=== PATIENT | male | born 1940 | race Caucasian/White ===

== ENCOUNTER 2016-12-13 08:16 | Day surgery (SDC) | payer MEDICARE, BC ==
[~2016-12-13 08:16] MED LIST: Acetaminophen TAB* 325 MG PO PRN; Buffered Lidocaine 0.9% SYRIN* 5 ML/SYR SYRINGE INTRADERM ONE
[2016-12-13] MEDS ORDERED: fentaNYL* 50 MCG/ML 2 ML VIAL (100 MCG VIAL) ONE (10:03)
[2016-12-13] MEDS ORDERED: Midazolam* 1 MG/ML 2 ML VIAL (2 MG) ONE (10:03)
[2016-12-13 10:34] VITALS: BP 140/87
[2016-12-13] MEDS ORDERED: Tropicamide 1% OPTH.SOL* BTL ONE (11:55)
[2016-12-13] MEDS ORDERED: Cyclopentolate 1% OPTH.SOL* 2 ML BTL ONE (11:55)
[2016-12-13] MEDS ORDERED: Flurbiprofen 0.03% OPTH.SOL* 2.5 ML BTL ONE (11:55)
[2016-12-13] MEDS ORDERED: Buffered Lidocaine 0.9% SYRIN* 5 ML/SYR SYRINGE ONE (11:55)
[2016-12-13] MEDS ORDERED: Tetracaine 0.5% OPTH.SOL 4 ML* 1 DROP BTL ONE (11:55)
[2016-12-13] MEDS ORDERED: Phenylephrine 2.5% OPTH.SOL* 2 ML BTL ONE (11:55)
[2016-12-13] MEDS ORDERED: Lidocaine 1% MPF* 2 ML VIAL ONE (11:55)
[2016-12-13] MEDS ORDERED: Neomycin/Polymy/Dex OPHTH.OIN* 3.5 GM ONE (11:55)
--- NOTE | 2016-12-13 14:58 | OP ---
OPERATIVE REPORT: DATE OF OPERATION: 12/13/16 DATE OF : 36 SURGEON: Dr. Drew Mc. EQUITY DIRECTOR: None. ANESTHESIA: Topical with intravenous sedation. PRE-OP DIAGNOSIS: Cataract, left eye. POST-OP DIAGNOSIS: Cataract, left eye. OPERATIVE PROCEDURE: Phacoemulsification and cataract extraction with posterior chamber intraocular lens implant, left eye. COMPLICATIONS: None. BLOOD LOSS: None. OPERATIVE FINDINGS: The patient was brought to the operating room and received a small amount of in travenous sedation. A drop of Tetracaine was placed in his left eye. He was prepped and draped in the usual sterile fashion for ophthalmic surgery and attention was directed to the left eye where a speculum was placed. A paracentesis was created at the 5 o'clock position and 0.1 cc of 1 percent p reservative-free Lidocaine was injected into the anterior chamber followed by DisCoVisc. The eye wa s digitally stabilized while a 2.75 mm keratome was used to create a triplanar clear corneal incisio n at the 3 o'clock position. A continuous curvilinear capsulorrhexis was created with a cystotome a nd Utrata forceps. BSS on a cannula was used to hydrodissect the lens from the capsule. Phacoemuls ification was performed in a eqwjxw-nxi-joaatcb technique to create four fragments which were remove d. Residual cortical material was removed with irrigation and aspiration. DisCoVisc was used to inf late the capsular bag and an AUOOTO 21.0 diopter lens was folded and inserted into the capsular bag. DisCoVisc was removed using irrigation and aspiration. BSS on a cannula was used to hydrate the c orneal stroma and seal the wound. At the end of the case the pupil was round and the lens was cente red. The eye was of normal pressure and the wound was water tight. The speculum was removed and top ical Maxitrol ointment was placed on the surface of the eye. The eye was closed, patched and shield ed and the patient was sent to the recovery room in stable condition with post operative instruction s and follow-up appointment given. [id number]/[facility] #: [id number]
== END 2016-12-13 10:48 | disposition home or self-care (01) ==
LOC: OREAST 08:16
PROVIDERS: ATTEND Ophthalmology
DX: H25.13 Age-related nuclear cataract, bilateral (principal); I71.2 Thoracic aortic aneurysm, without rupture; J45.909 Unspecified asthma, uncomplicated; N40.1 Benign prostatic hyperplasia with lower urinary tract symptoms; N13.8 Other obstructive and reflux uropathy; I10 Essential (primary) hypertension; Z79.82 Long term (current) use of aspirin; Z88.8 Allergy status to other drugs, medicaments and biological substances; Z87.891 Personal history of nicotine dependence; Z79.01 Long term (current) use of anticoagulants; Z88.2 Allergy status to sulfonamides; Z95.0 Presence of cardiac pacemaker
CPT/HCPCS: A9270-GY; J2250; J3010

== ENCOUNTER 2016-12-20 07:12 | Day surgery (SDC) | payer MEDICARE, BC ==
[~2016-12-20 07:12] MED LIST changes: +Buffered Lidocaine 0.9% SYRIN* 5 ML/SYR SYRINGE ONE; +Cyclopentolate 1% OPTH.SOL* 2 ML BTL ONE; +Flurbiprofen 0.03% OPTH.SOL* 2.5 ML BTL ONE; +Lidocaine 1% MPF* 2 ML VIAL ONE; +Neomycin/Polymy/Dex OPHTH.OIN* 3.5 GM ONE; +Phenylephrine 2.5% OPTH.SOL* 2 ML BTL ONE; +Tetracaine 0.5% OPTH.SOL 4 ML* 1 DROP BTL ONE; +Tropicamide 1% OPTH.SOL* BTL ONE
[2016-12-20] MEDS ORDERED: Phenylephr/Ketorolac 1%/0.3% OPH DROP BTL ONE (07:13)
[2016-12-20] MEDS ORDERED: Midazolam* 1 MG/ML 2 ML VIAL (2 MG) ONE (08:32)
[2016-12-20] MEDS ORDERED: fentaNYL* 50 MCG/ML 2 ML VIAL (100 MCG VIAL) ONE (08:32)
[2016-12-20 09:15] VITALS: BP 131/89
--- NOTE | 2016-12-20 17:36 | OP ---
DATE OF OPERATION: 12/20/16 [facility] DATE OF : 36 SURGEON: Dr. Drew Mc. CORE PASTER: None. ANESTHESIA: Topical with intravenous sedation. PRE-OP DIAGNOSIS: Cataract, right eye. POST-OP DIAGNOSIS: Cataract, right eye. OPERATIVE PROCEDURE: Phacoemulsification and cataract extraction with posterior chamber intraocular lens implant, right eye. COMPLICATIONS: None. BLOOD LOSS: None. DESCRIPTION OF PROCEDURE: The patient was brought to the operating room and received a small amount of intravenous sedation. A drop of Tetracaine was placed in his right eye. He was prepped and draped in the usual sterile fashion for ophthalmic surgery and attention was directed to the right eye where a speculum was placed. A paracentesis was created at the 11 o'clock position and 0.1 cc of 1 percent preservative-free Lidocaine was injected into the anterior chamber followed by DisCoVisc. The eye was digitally stabilized while a 2.75 mm keratome was used to create a triplanar clear corneal incision at the 9 o'clock position. A continuous curvilinear capsulorrhexis was created with a cystotome and Utrata forceps. BSS on a cannula was used to hydrodissect the lens from the capsule. Phacoemulsification was performed in a divide-and- conquer technique to create four fragments which were removed. Residual cortical material was removed with irrigation and aspiration. DisCoVisc was used to inflate the capsular bag and an AU00T0 21.5 diopter lens was folded and inserted into the capsular bag. DisCoVisc was removed using irrigation and aspiration. BSS on a cannula was used to hydrate the corneal stroma and seal the wound. At the end of the case the pupil was round and the lens was centered. The eye was of normal pressure and the wound was water tight. The speculum was removed and topical Maxitrol ointment was placed on the surface of the eye. The eye was closed, patched and shielded and the patient was sent to the recovery room in stable condition with post operative instructions and follow-up appointment given. [id number]/[facility] #: [id number] MTDD
== END 2016-12-20 09:19 | disposition home or self-care (01) ==
LOC: OREAST 07:12
PROVIDERS: ATTEND Ophthalmology
DX: H25.11 Age-related nuclear cataract, right eye (principal); I71.2 Thoracic aortic aneurysm, without rupture; N40.1 Benign prostatic hyperplasia with lower urinary tract symptoms; I10 Essential (primary) hypertension; J45.909 Unspecified asthma, uncomplicated; Z87.891 Personal history of nicotine dependence
CPT/HCPCS: A9270-GY; C9447; J2250; J3010; V2632

== ENCOUNTER 2018-11-23 17:53 | Emergency (ER) | payer MEDICARE, BC ==
--- OUTSIDE RECORDS SUMMARY | 2018-11-23 18:06 | XMS REPORT | Continuity of Care Document ---
:1940 External Reference #:[id number] Author Name Mag Tiarragie Care Team Providers Name Role Phone Keo Rangel III, MD Primary Care Physician Unavailable Payers Date Identification Numbers Payment Provider Subscriber Effective: 2003 Policy Number: [id number] Medicare [place] PayID: [id number] [address] [place] [address] Effective: 2013 Policy Number: [id number] [employer] [place] [employer] PayID: [id number] [address] [address] [place] Shane [id number] Expires: 2013 Policy Number: [id number] BS [employer] [place] [employer] [place] PayID: [id number] [address] [address] [place] Shane [id number] Advance Directives Type Date Description Status Comment Other Directive 01/11/2014 Living Will Current and Verified LIVING WILL AND HEALTH CARE ADVANCE DIRECTIVE Problems Active Problems Provider Date Aneurysm of thoracic aorta Westley Connolly M.D.,FACP Onset: 03/07/2008 Note: repaired 07/16 Chronic atrial flutter Westley Connolly M.D.,FACP Onset: 02/13/2017 Impaired fasting glycaemia Westley Connolly M.D.,FACP Onset: 03/07/2008 Impotence of organic origin Westley Connolly M.D.,FACP Onset: 02/10/2010 Coronary arteriosclerosis Westley Connolly M.D.,FACP Onset: 01/13/2011 Cardiac pacemaker in situ Westley Connolly M.D.,FACP Onset: 01/13/2011 Aortic valve disorder Karson Patten M.D. Onset: 09/22/2011 Sinus node dysfunction Karson Patten M.D. Onset: 01/16/2012 Allergic asthma without status Westley Connolly M.D.,FACP Onset: 03/01/2012 asthmaticus Complete atrioventricular block Karson Patten M.D. Onset: 10/17/2012 Mitral valve disorder Karson Patten M.D. Onset: 11/27/2013 Benign prostatic hypertrophy with Westley Connolly M.D.,FACP Onset: 2014 outflow obstruction Iron deficiency anemia Westley Connolly M.D.,FACP Onset: 02/28/2018 Gynecomastia Westley Connolly M.D.,FACP Onset: 03/02/2018 Note: LT Inactive Problems Arthralgia of the lower leg Karson Patten M.D. Onset: 11/27/2013 Inactive: 02/19/2015 Benign prostatic hypertrophy without Westley Connolly M.D.,FACP Onset: outflow obstruction Inactive: 02/19/2015 Resolved Problems Chest pain Karson Patten M.D. 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 Tobacco Use Start: Unknown End: Former Cigarette Smoker for 6 years Unknown 2 Packs Daily ETOH Use one beer per day. ETOH Use 02/13/2017 Consumes 1 beer per day Tobacco Use Start: Unknown End: Patient is a former Unknown smoker Recreational Drug Use Denies Drug Use Smoking Status Reviewed: 11/12/18 Patient is a former smoker Exercise Type/Frequency cardiac rehab completed 01/17/18 Exercise Type/Frequency active lifestyle Exercise Type/Frequency Exercises regularly Exercise Type/Frequency walking 2-3x week 2 miles Allergies, Adverse Reactions, Alerts Active Allergies Reaction Severity Comments Date Sulfa headaches 05/07/2003 Codeine nausea, sweating 01/13/2006 Niaspan flushing 05/20/2009 Medications Active Medications SIG Qnty Indications Ordering Date Provider Poly-Iron 150 Forte take 1 capsule by 90caps Keo Henson 06/28/2018 mouth every day Danielle Rangel [id number]-mg Capsules Lipitor 1/2 tab by mouth 45tabs Karson Monge 01/24/2018 10mg Tablets every night at Danielle Patten bedtime Vitamin C 1 po qd w/ iron Westley Yoder 11/07/2017 250mg Danielle Connolly,FACP Chewtabs Diltiazem CD 1 by mouth every 90caps Karson Monge 10/20/2017 120mg Caps day Danielle Patten ER 24HR Shingrix 2 doses 6 month 2units Westley Yoder 10/16/2017 50mcg apart Danielle Connolly,FACP Suspension Rec Vascepa take 1 capsule 180caps Keo Henson 05/15/2017 1gm Capsules twice a day Danielle Rangel Uroxatral take 1 tablet by 90tabs Westley Yoder 02/13/2017 10mg Tablets mouth one time Danielle Connolly,FACP ER 24HR daily Pradaxa 1 cap by mouth 180caps Karson Monge 11/08/2016 150mg Capsules twice a day Danielle Patten Finasteride 1 by mouth every 90tabs N40.1 Keo Henson 02/12/2016 5mg Tablets day Danielle Rangel Nitrostat one sl q5min up 1bottle Karson Monge 02/05/2014 0.4mg Tablets to 3 doses as Danielle Patten Sub needed Pantoprazole Sodium 1 by mouth every 90tabs Karson Monge 08/27/2012 day Danielle Patten 40mg Tablets Cetirizine HCL 1 by mouth every Unknown 10mg day Tablets Aspir-81 1 by mouth every Unknown 81mg Tablets day Metoprolol Succinate 1/2 tablet by 90tabs Karson Monge ER mouth every day Danielle Patten 25mg Tablets ER 24HR Myrbetriq 1 by mouth every Unknown 50mg Tablets day ER 24HR Metamucil Free & 3 teaspoons once Unknown Natural a day mixed w/ 43% Powder water Lasix 1 by mouth every 90tabs Westley Yoder 20mg Tablets day as needed Danielle Connolly,FACP Ambien one by mouth at 30tabs [facility]. 5mg Tablets bedtime as needed Danielle Rangel for sleep Centrum Silver Ultra Unknown Mens Tablets Proair HFA 2 puffs by mouth Unknown 108(90Base) every 4 hours as mcg/Act Aerosol needed Chlorhexidine 15ml as a Unknown Gluconate mouthwash twice 0.12% daily as needed Solution Symbicort 2puff inhaled bid 90units Unknown 80-4.5mcg/Act Aerosol Rutin 1 po bid Unknown 500mg OTC Tablets Glucosamine 1 bid Unknown Sulfate/Chondroitin 1000mg Capsules Cinnamon 1 po daily Unknown 500mg Capsules History Medications Diltiazem 1 by mouth every 90units Karson Monge 10/03/2018 - Hydrochloride/Sodium day Danielle Patten 10/02/2018 Chloride 125-0.9mg/125ML-% Solution Feraheme 17 milliliters iv 34ml Westley Yoder 02/23/2018 - 510mg/17ML Solution x1, repeat in 1 Rogers, 03/15/2018 week x1 Danielle,FACP Iferex 150 Forte 1 by mouth every 90caps Westley Yoder 11/07/2017 - day Rogers, 06/28/2018 936-68-5lp-mcg-mg Capsules M.DJosefina,FACP Ferrous Sulfate 1 by mouth twice 60tabs Westley Yoder 10/16/2017 - 325(65Fe) mg a day Rogers, 10/16/2017 Tablets Danielle,FACP Diltiazem CD 2 tablets by 270capclint Monge 02/10/2016 - 120mg Caps ER 24HR mouth in the Danielle Patten 10/19/2017 morning and 1 tablet in the evening Metoprolol Succinate ER take 1/2 tablet 45tabs Karson Monge 12/11/2015 - 25mg by mouth daily Danielle Patten 10/20/2017 Tablets ER 24HR Lipitor 1/2 by mouth 45tabs Karson Monge 12/01/2015 - 10mg Tablets every at bedtime Danielle Patten 10/20/2017 (restarted 11/30/16) Cialis every day by 90tabs N52.01 Westley Yoder 02/19/2015 - 5mg Tablets mouth Rogers, 11/15/2015 Danielle,FACP Metoprolol Succinate ER 1 by mouth twice 200tabs Karson Monge 01/22/2015 - 25mg a day Danielle Patten 12/11/2015 Tablets ER 24HR Paorv-7-Slxw Ethyl Esters 1 by mouth twice 180caps Westley Yoder 2014 - 1gm a day Rogers, 05/15/2017 Capsules Danielle,FACP Cialis Take 1 Tablet By 30tabs 607.84 Que Hope, 02/18/2014 - 2.5mg Tablets Mouth Once Daily TRENCH DIGGER 02/19/2015 Spironolactone No Longer Taking 45tabs Karson Monge 11/27/2013 - 25mg Tablets 1/2 by mouth Danielle Patten 02/12/2016 every day Flax Seed Oil 1 by mouth every Karson Monge 11/27/2013 - 1000mg Capsules day Danielle Patten 02/18/2014 Metoprolol Succinate ER 1 by mouth daily 90tabs Karson Monge 05/13/2013 - 25mg Danielle Patten 01/22/2015 Tablets ER 24HR Spironolactone 1/4 po qd 45tabs Karson Monge 05/13/2013 - 50mg Tablets Danielle Patten 11/27/2013 Aldactone 1/2 po qd 15tabs Karson Monge 12/18/2012 - 25mg Tablets Danielle Patten 05/13/2013 Diovan 1/2 po qd Karson Monge 08/19/2012 - 40mg Tablets Danielle Patten 11/28/2012 Protonix 1 po qd 90tabs Karson Monge 09/22/2011 - 40mg Tablets DR Sandor M.D. 08/27/2012 Diovan 1 po qd 90tabs Karson Monge 11/03/2010 - 40mg Tablets Danielle Patten 08/19/2012 Toprol XL 1 po qd 90tabs Karson Monge 02/10/2010 - 25mg Tablets ER 24HR Danielle Patten 05/13/2013 Cialis qd prn 20tabs 607.84 Westley Yoder 02/10/2010 - 10mg Tablets Mohsen, 02/18/2014 Danielle,FACP Diovan 1 po qd 90tabs Karson Monge 01/20/2010 - 80mg Tablets Danielle Patten 11/03/2010 Toprol XL 1 po qd Karson FJosefina 12/24/2009 - 25mg Tablets ER 24HR Danielle Patten 02/10/2010 Nitrostat one sl q5min up 25tabs Karson Monge 05/20/2009 - 0.4mg Tablets Sub to 3 doses prn Danielle Patten 02/05/2014 Toprol XL 1 po bid 180tabs Karson Monge 05/20/2009 - 25mg Tablets ER 24HR Danielle Patten 12/24/2009 Tamiflu 1 po bid x 5 days 10caps Westley Yoder 02/18/2009 - 75mg Capsules Mohsen, 09/30/2009 Danielle,FACP Lipitor one tab by mouth 90tabs Karson Monge 10/21/2008 - 20mg Tablets qhscannot take Danielle Patten 12/01/2015 generic brand name/riana Lipitor 1 po qhs Karsonli Monge 10/02/2008 - 10mg Tablets Danielle Patten 10/21/2008 Lovaza take one capsule 180caps I25.10 Westley Yoder 03/07/2008 - 1gm Capsules by mouth twice a Rogers, 02/12/2016 day Danielle,FACP Chlorhexidine bid Karson Monge 02/15/2008 - 0.12% Solution Danielle Patten 01/16/2012 Amoxicillin/Clavulanate 1 PO tid Karson Monge 02/15/2008 - Potassium Danielle Patten 10/02/2008 500mg Tablets Lipitor 1/2 po hs 45tabs Karson Monge 02/15/2008 - 40mg Tablets Danielle Patten 10/02/2008 Lipitor one half po qd 15tabs Karson Monge 10/05/2007 - 20mg Tablets Danielle Patten 02/15/2008 Lasix 1 po qd prn 30tabs Karson Monge 10/03/2007 - 20mg Tablets Danielle Patten 10/05/2007 Diovan 1 po qd 90tabs Westley Yoder 10/03/2007 - 40mg Tablets Mohsen, 01/20/2010 Danielle,FACP Dexamethasone 1 PO qd last dose Karsonli Monge 10/03/2007 - 0.5mg Tablets 5/3 Danielle Patten 10/03/2007 Toradol Oral total 5 days post 50tabs Karson Monge 10/03/2007 - 10mg Tablets dental work Danielle Patten 10/03/2007 Clarithromycin 1 PO bid until Karson Monge 10/03/2007 - 500mg Tablets 5/ post dental Danielle Patten 02/15/2008 work Avodart 1 po qd 90caps Westley Yoder 05/24/2007 - 0.5mg Capsules Mohsen, 02/10/2010 Danielle,FACP Diovan 1 po qd 90tabs Karson Monge 05/24/2007 - 80mg Tablets Danielle Patten 10/03/2007 Lipitor 1 PO QHS 30tabs Karson Monge 12/04/2006 - 20mg Tablets Danielle Patten 10/05/2007 Lipitor Take 1 Tablet Karson Monge 09/29/2006 - 20mg Tablets Every Evening Danielle Patten 09/29/2006 Lipitor 1/2 po qd 30tabs Karson Monge 09/29/2006 - 40mg Tablets Danielle Patten 12/04/2006 Lisinopril 1/2 po qd 30tabs Karson Monge 09/29/2006 - 40mg Tablets Danielle Patten 05/24/2007 Lipitor 1 po qd 30tabs Karson Monge 05/11/2006 - 10mg Tablets Danielle Patten 09/29/2006 Niaspan 1 po q pm 90caps Karson Monge 05/11/2006 - 500mg Capsules Danielle Patten 09/29/2006 Toprol XL 1/2 po qd 45tabs Westley Yoder 04/19/2006 - 50mg Tablets ER 24HR Mohsen 05/20/2009 Danielle,FACP Lisinopril 1 po bid 60tabs Karson Monge 04/19/2006 - 10mg Tablets Danielle Patten 09/29/2006 Fish Oil 2 tablets in am 414.01 Karson Monge 02/13/2006 - Cream and 1 tablet at Danielle Patten 03/07/2008 dinner Lipitor 1 po qd 30tabs Karson Monge 02/13/2006 - 20mg Tablets Danielle Patten 05/11/2006 Lisinopril 1 po qd 30tabs Karson Monge 2005 - 5mg Tablets Danielle Patten 04/19/2006 Toprol XL 1 po qd 30tabs Karson Monge 2005 - 25mg Tablets Danielle Patten 04/19/2006 Toprol XL 1/2 po qd 30tabs Karson Monge 12/09/2005 - 25mg Tablets Danielle Patten 2005 Lisinopril 1 po qd 90tabs Karson Monge 12/09/2005 - 2.5mg Tablets Danielle Patten 2005 Plavix 4 po today and 35tabs Karson Monge 12/09/2005 - 75mg Tablets then 1 po qd Danielle Patten 2005 Nitrostat One sl Q5min Up 25tabs Karson Monge 12/09/2005 - 0.3mg Tablets To 3 Doses prn Danielle Patten 05/20/2009 Lipitor 1 po qd 90tabs Karson Monge 11/24/2005 - 10mg Tablets Danielle Patten 02/13/2006 fish oil two bid Karson Monge 11/23/2005 - Danielle Patten 02/13/2006 Lisinopril 1/2 po qd 30tabs Karson Monge 05/12/2005 - 10mg Tablets Danielle Patten 11/24/2005 Lisinopril 1 po qd 30tabs Karson Monge 05/12/2005 - 10mg Tablets Danielle Patten 05/12/2005 Lipitor 1/2 po qd 45tabs Karson Monge 05/02/2005 - 40mg Tablets Danielle Patten 11/24/2005 Lipitor 1 po qd Karson FJosefina 02/07/2005 - 20mg Tablets Danielle Patten 05/02/2005 Lipitor 1/2 po qd 15tabs Karson Monge 05/13/2004 - 80mg Tablets Danielle Patten 02/07/2005 Lipitor 1 po qd 30tabs Karson Monge 05/07/2004 - 40mg Tablets Danielle Patten 05/13/2004 Lisinopril 1/2 po qd 15tabs Karson Monge 11/06/2003 - 20mg Tablets Danielle Patten 05/12/2005 Brando Gold two qd Karson Monge 11/05/2003 - Danielle Patten 10/02/2008 Toprol XL 1 po qd 90tabs Karson Monge 06/13/2003 - 50mg Tablets Danielle Patten 12/09/2005 Toprol XL 1 po bid 60tabs Karson Monge 05/21/2003 - 25mg Tablets Danielle Patten 06/13/2003 Lisinopril 1 po qd 30tabs Karson Monge 05/21/2003 - 10mg Tablets Danielle Patten 11/06/2003 Lisinopril 1 po bid 30tabs Karson Monge 05/21/2003 - 10mg Tablets Danielle Patten 05/21/2003 Lipitor 1 po qd 30tabs Karson Monge 05/14/2003 - 20mg Tablets Danielle Patten 05/07/2004 Trimox 4 Caps One Hour 8caps Karson Monge 05/07/2003 - 500mg Capsules Prior To Dental Danielle Patten 10/02/2008 Procedure Vitamins Multiple 1 po qd 30caps Karson Monge 05/07/2003 - Caplets Danielle Patten 05/12/2005 Glucosamine Condroitin 1 po bid Karson Monge 05/07/2003 - 1000mg Danielle Patten 05/20/2009 800mg Injection Rutin 1 po bid Karson Monge 05/07/2003 - Tablet Danielle Patten 05/20/2009 Calcium 1 po bid Karsno Monge 05/07/2003 - Tablets Danielle Patten 05/12/2005 Allergy Shots Karson Monge 05/07/2003 - Tablets Danielle Patten 09/22/2011 Toprol XL 1 po qd 90tabs Karson Monge 05/07/2003 - 25mg Tablets Danielle Patten 05/21/2003 Aspirin Enteric Coated qd Karson Monge 05/06/2003 - 81mg Danielle Patten 10/20/2017 Tablets Zestril 1 po qpm 90tabs Karson Monge 05/06/2003 - 20mg Tablets Danielle Patten 05/07/2003 Ranitidine bid po 180tabs Westley Yoder 05/06/2003 - 150mg Tablets Rogers, 09/22/2011 Danielle,FACP Rhinocort Aqua Nasal [place] at bedtime Karson Monge 05/06/2003 - 150mg Danielle Patten 12/03/2015 Suspension Zestril 1 po qpm 30tabs Karson Monge 05/06/2003 - 10mg Tablets Danielle Patten 05/07/2003 Zestril 1 po qam 30tabs Karson Monge 05/06/2003 - 20mg Tablets Danielle Patten 05/07/2003 Atorvastatin Calcium 1/2 tab by mouth 14tabs Qutaybeh S. - 10mg Tablets every day Maghaydah, 01/23/2018 Danielle Myrbetriq 1 by mouth every Unknown - 50mg Tablets ER 24HR day 10/19/2017 Hydrocortisone Acetate as needed Unknown - 1% Cream 10/15/2018 Flonase Allergy Relief spray 1 spray in Unknown - 50mcg/Act each nostril 10/19/2017 Suspension twice daily Vesicare 1 by mouth every 90tabs Westley Yoder - 5mg Tablets day Rogers, 10/16/2017 Danielle,FACP Flomax 1 by mouth every 90caps Westley Yoder - 0.4mg Capsules day Rogers, 02/13/2017 Danielle,STEPHEN Budesonide instill one spray Unknown - 32mcg/Act Suspension in each nostril 10/19/2017 once daily as needed Aspirin Adult Low Dose 1 by mouth every Unknown - 81mg day 12/21/[address] Flomax 1 by mouth every N40.1 Unknown - 0.4mg Capsules day 02/12/2016 Cefuroxime Axetil Take 1 Tablet By Unknown - 500mg Tablets Mouth Twice A Day 02/01/2013 For 10 Days Vitamin C 1 po qd 30tabs Unknown - 500mg Tablets 11/27/2013 Vitamin D 1 po qd 60caps Unknown - 400Unit Capsules 11/27/2013 Multi Vitamin Mens Unknown - Tablets 12/22/2015 Benadryl 2 po qhs, Unknown - 25mg Capsules additional 1 12/08/2016 tablet prn Proventil HFA 2 puff(s) 1Mon Unknown - 108mcg/Act Aerosol inhalation 1 qid 11/15/2015 prn Medications Administered in Office Medication SIG Qnty Indications Ordering Provider Date Inj, Regadenoson, 0.1 MG Zach Hdz, DO [facility] 03/04/2015 Injection Inj, Regadenoson, 0.1 MG Karson Patten M.D. 03/04/2015 Injection Technetium TC 99M Zach Hdz, DO [facility] 03/04/2015 Tetrofosmin, Per Unit Dose Up To 40 Millicuries Injection Technetium TC 99M Karson Patten M.D. 03/04/2015 Tetrofosmin, Per Unit Dose Up To 40 Millicuries Injection Immunizations CPT Code Status Date Vaccine Lot # [id number] Given 03/03/2018 Zoster (Shingles) Vaccine (HZV), Recombinant, Subunit, Adjuvanted 18461 Given 03/03/2018 Zoster (Shingles) Vaccine (HZV), Recombinant, Subunit, Adjuvanted 38940 Given 03/02/2018 Fluzone High Dose 43307 Given 10/13/2017 Zoster (Shingles) Vaccine (HZV), Recombinant, Subunit, Adjuvanted 22614 Given 02/12/2016 Influenza Virus Vaccine, Quadrivalent, Split, [id number] Preservative Free 20390 Given 02/19/2015 Influenza Virus Vaccine, Quadrivalent, Split, [id number] Preservative Free 82216 Given 12/16/2014 Pneumococcal Conjugate Vaccine 13 Valent For [id number] Intramuscular Use 86713 Given 02/19/2013 Fluzone High Dose [id number] 07483 Given 03/01/2012 Tdap - Tetanus/Diptheria/Acellular Pertussis [id number] Q2038 Given 02/27/2012 Fluzone Vaccine 42991 Given 02/27/2012 Influenza Virus 3Yrs & Over 94180 Given 05/11/2009 Influenza Virus Vaccine, Pandemic Formulation [id number] 76495 Given 03/07/2009 Zoster (Zostavax) 65253 Given 03/07/2008 Influenza Virus 3Yrs & Over 59968 Given 03/07/2008 Influenza Virus 3Yrs & Over [id number] 22180 Given 04/04/2007 Zoster (Zostavax) 02731 Given 04/04/2007 Pneumonia Vaccine Vital Signs Date Vital Result Comment 11/12/2018 8:53am Height 70.5 inches 5'10.50" Weight 182.38 lb with shoes Heart Rate 66 /min radial, regular BP Systolic Sitting 140 mmHg LA, reg cuff BP Diastolic Sitting 86 mmHg LA, reg cuff BP Systolic Standing 130 mmHg LA, reg cuff BP Diastolic Standing 82 mmHg LA, reg cuff BMI (Body Mass Index) 25.8 kg/m2 Ejection Fraction 45%-50% echo 10/18/18 10/16/2018 9:20am Height 70.5 inches 5'10.50" Weight 180.12 lb Clothes/shoes Heart Rate 60 /min Radial BP Systolic Sitting 128 mmHg Rue reg cuff BP Diastolic Sitting 60 mmHg Rue reg cuff BP Systolic Standing 122 mmHg Rue reg cuff BP Diastolic Standing 60 mmHg Rue reg cuff BMI (Body Mass Index) 25.5 kg/m2 Ejection Fraction 55-60% Echo 01/19/2018 10/05/2018 11:35am Height 70.5 inches 5'10.50" Weight 178.50 lb Heart Rate 76 /min BP Systolic 131 mmHg BP Diastolic 86 mmHg Body Temperature 97.6 F O2 % BldC Oximetry 97 % BMI (Body Mass Index) 25.2 kg/m2 02/28/2018 8:48am Height 70.5 inches 5'10.50" Weight 172.12 lb Heart Rate 97 /min BP Systolic 130 mmHg BP Diastolic 82 mmHg Body Temperature 96.5 F O2 % BldC Oximetry 96 % BMI (Body Mass Index) 24.3 kg/m2 01/17/2018 11:23am Height 71 inches 5'11" Weight 172.25 lb W/ Shoes Heart Rate 84 /min BP Systolic Sitting 122 mmHg Lue Reg Cuff BP Diastolic Sitting 84 mmHg Lue Reg Cuff BMI (Body Mass Index) 24.0 kg/m2 Ejection Fraction 55% ECHO 07/29/17 11/09/2017 9:10am Height 71 inches 5'11" Weight 174.00 lb with shoes Heart Rate 62 /min Right Radial BP Systolic Sitting 102 mmHg Lue reg cuff BP Diastolic Sitting 58 mmHg Lue reg cuff BP Systolic Standing 96 mmHg Lue BP Diastolic Standing 52 mmHg Lue Respiratory Rate 16 /min BMI (Body Mass Index) 24.3 kg/m2 Ejection Fraction 55% Echo 07/29/17 10/20/2017 2:21pm Height 71 inches 5'11" Weight 173.00 lb Heart Rate 88 /min BP Systolic Sitting 98 mmHg Lue reg cuff BP Diastolic Sitting 62 mmHg Lue reg cuff BP Systolic Standing 94 mmHg Lue BP Diastolic Standing 68 mmHg Lue Respiratory Rate 16 /min BMI (Body Mass Index) 24.1 kg/m2 Ejection Fraction 55% 07/29/17 10/16/2017 9:19am Height 71 inches 5'11" Weight 174.00 lb Heart Rate 80 /min BP Systolic Sitting 122 mmHg BP Diastolic Sitting 66 mmHg Body Temperature 96.9 F O2 % BldC Oximetry 97 % BMI (Body Mass Index) 24.3 kg/m2 02/13/2017 9:14am Height 71 inches 5'11" Weight 190.00 lb Heart Rate 64 /min BP Systolic Sitting 140 mmHg BP Diastolic Sitting 78 mmHg BP Systolic Recheck 126 mmHg BP Diastolic Recheck 76 mmHg Body Temperature 97.0 F O2 % BldC Oximetry 98 % BMI (Body Mass Index) 26.5 kg/m2 12/08/2016 3:37pm Weight 192.00 lb Heart Rate 63 /min BP Systolic Sitting 134 mmHg BP Diastolic Sitting 78 mmHg Body Temperature 97.4 F O2 % BldC Oximetry 98 % 11/08/2016 3:50pm Height 70 inches 5'10" Weight 191.00 lb with shoes Heart Rate 70 /min BP Systolic Sitting 142 mmHg LA reg cuff BP Diastolic Sitting 90 mmHg LA reg cuff BMI (Body Mass Index) 27.4 kg/m2 Ejection Fraction 55% - 60% stress echo 02/10/16 03/14/2016 1:13pm Height 70 inches 5'10" Weight 195.00 lb with shoes Heart Rate 72 /min BP Systolic Sitting 126 mmHg LA reg cuff BP Diastolic Sitting 86 mmHg LA reg cuff BMI (Body Mass Index) 28.0 kg/m2 Ejection Fraction 50 - 55% echo 12/10/15 02/12/2016 11:24am Height 70 inches 5'10" Weight 199.00 lb Heart Rate 60 /min BP Systolic Sitting 146 mmHg BP Diastolic Sitting 100 mmHg BP Systolic Recheck 160 mmHg BP Diastolic Recheck 84 mmHg Body Temperature 97.0 F O2 % BldC Oximetry 98 % BMI (Body Mass Index) 28.6 kg/m2 12/22/2015 2:32pm Height 70.75 inches 5'10.75" Heart Rate 60 /min Apical BP Systolic 118 mmHg Ra, reg BP Diastolic 74 mmHg Ra, reg BP Systolic Sitting 124 mmHg LA, reg BP Diastolic Sitting 84 mmHg LA, reg 11/16/2015 1:25pm Height 70.75 inches 5'10.75" Weight 198.00 lb with shoes Heart Rate 62 /min BP Systolic 122 mmHg LA lrg cuff BP Diastolic 78 mmHg LA lrg cuff BMI (Body Mass Index) 27.8 kg/m2 Ejection Fraction 47% NLM 03/04/16 03/12/2015 2:53pm Height 70.75 inches 5'10.75" Weight 196.00 lb Heart Rate 76 /min BP Systolic Sitting 156 mmHg LA reg cuff BP Diastolic Sitting 88 mmHg LA reg cuff BP Systolic Standing 142 mmHg la repeat sitting BP Diastolic Standing 84 mmHg la repeat sitting BMI (Body Mass Index) 27.5 kg/m2 Ejection Fraction 47 NLM 03/04/15 02/19/2015 10:18am Height 70.75 inches 5'10.75" Weight 194.00 lb Heart Rate 58 /min BP Systolic Sitting 110 mmHg BP Diastolic Sitting 62 mmHg Body Temperature 97.5 F O2 % BldC Oximetry 98 % BMI (Body Mass Index) 27.2 kg/m2 01/02/2015 4:07pm Height 70.75 inches 5'10.75" Weight 193.00 lb Heart Rate 76 /min BP Systolic Sitting 138 mmHg LA, reg BP Diastolic Sitting 84 mmHg LA, reg BMI (Body Mass Index) 27.1 kg/m2 Ejection Fraction 60%-65% 11/27/12 ECHO 02/18/2014 10:35am Height 70.75 inches 5'10.75" Weight 194.00 lb Heart Rate 68 /min BP Systolic Sitting 134 mmHg BP Diastolic Sitting 86 mmHg Body Temperature 96.9 F BMI (Body Mass Index) 27.2 kg/m2 11/27/2013 11:41am Height 70.5 inches 5'10.50" Weight 193.00 lb Heart Rate 64 /min BP Systolic Sitting 140 mmHg BP Diastolic Sitting 82 mmHg Respiratory Rate 16 /min BMI (Body Mass Index) 27.3 kg/m2 11/07/2013 11:43am Height 70.5 inches 5'10.50" Weight 194.25 lb Heart Rate 76 /min BP Systolic Sitting 144 mmHg BP Diastolic Sitting 96 mmHg Body Temperature 96.9 F BMI (Body Mass Index) 27.5 kg/m2 02/01/2013 9:12am Height 71 inches 5'11" Weight 190.50 lb Heart Rate 60 /min BP Systolic Sitting 128 mmHg BP Diastolic Sitting 76 mmHg BMI (Body Mass Index) 26.6 kg/m2 11/22/2012 12:12pm Height 70.5 inches 5'10.50" Weight 193.50 lb Heart Rate 68 /min BP Systolic Sitting 132 mmHg BP Diastolic Sitting 82 mmHg Body Temperature 97.8 F O2 % BldC Oximetry 98 % BMI (Body Mass Index) 27.4 kg/m2 10/17/2012 9:35am Height 70.5 inches 5'10.50" Weight 196.00 lb Heart Rate 60 /min BP Systolic 130 mmHg BP Diastolic 88 mmHg Respiratory Rate 14 /min BMI (Body Mass Index) 27.7 kg/m2 03/01/2012 4:23pm Height 70.5 inches 5'10.50" Weight 197.00 lb Heart Rate 60 /min BP Systolic Sitting 134 mmHg BP Diastolic Sitting 82 mmHg BMI (Body Mass Index) 27.9 kg/m2 01/16/2012 9:36am Height 71 inches 5'11" Weight 199.00 lb Heart Rate 60 /min BP Systolic 118 mmHg BP Diastolic 76 mmHg BMI (Body Mass Index) 27.8 kg/m2 09/22/2011 9:41am Height 71 inches 5'11" Weight 195.75 lb Heart Rate 55 /min BP Systolic 136 mmHg BP Diastolic 70 mmHg BMI (Body Mass Index) 27.3 kg/m2 01/13/2011 10:09am Height 71 inches 5'11" Weight 197.00 lb Heart Rate 68 /min BP Systolic Sitting 150 mmHg BP Diastolic Sitting 88 mmHg BMI (Body Mass Index) 27.5 kg/m2 11/03/2010 3:06pm Weight 195.00 lb Heart Rate 60 /min BP Systolic Sitting 114 mmHg BP Diastolic Sitting 60 mmHg 02/10/2010 2:44pm Weight 197.00 lb Heart Rate 60 /min BP Systolic Sitting 132 mmHg BP Diastolic Sitting 80 mmHg 02/10/2010 9:01am Height 72 inches 6'0" Weight 197.00 lb Heart Rate 74 /min BP Systolic Sitting 110 mmHg BP Diastolic Sitting 80 mmHg BMI (Body Mass Index) 26.7 kg/m2 12/24/2009 8:43am Height 72 inches 6'0" Weight 195.00 lb Heart Rate 63 /min BP Systolic Sitting 130 mmHg L BP Diastolic Sitting 80 mmHg L BMI (Body Mass Index) 26.4 kg/m2 09/30/2009 3:05pm Height 72 inches 6'0" Weight 194.00 lb Heart Rate 70 /min BP Systolic 124 mmHg BP Diastolic 94 mmHg BMI (Body Mass Index) 26.3 kg/m2 05/20/2009 3:32pm Height 72 inches 6'0" Weight 197.00 lb Heart Rate 60 /min BP Systolic Sitting 120 mmHg BP Diastolic Sitting 90 mmHg BMI (Body Mass Index) 26.7 kg/m2 02/18/2009 8:50am Height 72 inches 6'0" Weight 196.00 lb Heart Rate 68 /min BP Systolic Sitting 130 mmHg BP Diastolic Sitting 78 mmHg BMI (Body Mass Index) 26.6 kg/m2 10/02/2008 11:09am Height 72 inches 6'0" Weight 197.00 lb Heart Rate 60 /min BP Systolic Sitting 120 mmHg BP Diastolic Sitting 82 mmHg BMI (Body Mass Index) 26.7 kg/m2 10/01/2008 1:21pm Height 72 inches 6'0" Weight 198.00 lb Heart Rate 76 /min BP Systolic Sitting 120 mmHg BP Diastolic Sitting 80 mmHg BMI (Body Mass Index) 26.9 kg/m2 03/07/2008 11:06am Height 72 inches 6'0" Weight 200.00 lb Heart Rate 68 /min BP Systolic Sitting 140 mmHg BP Diastolic Sitting 82 mmHg BMI (Body Mass Index) 27.1 kg/m2 02/15/2008 3:01pm Height 72 inches 6'0" Weight 202.00 lb Heart Rate 64 /min BP Systolic Sitting 140 mmHg L BP Diastolic Sitting 90 mmHg L BMI (Body Mass Index) 27.4 kg/m2 10/12/2007 2:40pm Height 72 inches 6'0" Weight 203.00 lb Heart Rate 76 /min BP Systolic Sitting 140 mmHg BP Diastolic Sitting 70 mmHg BMI (Body Mass Index) 27.5 kg/m2 10/03/2007 8:05am Height 72 inches 6'0" Weight 200.00 lb Heart Rate 81 /min BP Systolic Sitting 124 mmHg BP Diastolic Sitting 84 mmHg BP Systolic Standing 120 mmHg BP Diastolic Standing 80 mmHg BMI (Body Mass Index) 27.1 kg/m2 05/24/2007 10:14am Height 72 inches 6'0" Weight 199.00 lb Heart Rate 60 /min BP Systolic Sitting 126 mmHg BP Diastolic Sitting 80 mmHg Respiratory Rate 16 /min BMI (Body Mass Index) 27.0 kg/m2 09/29/2006 11:09am Height 72 inches 6'0" Weight 194.00 lb Heart Rate 66 /min BP Systolic Sitting 134 mmHg BP Diastolic Sitting 70 mmHg BP Systolic Standing 120 mmHg BP Diastolic Standing 70 mmHg BMI (Body Mass Index) 26.3 kg/m2 05/11/2006 2:07pm Height 72 inches 6'0" Weight 197.00 lb Heart Rate 68 /min BP Systolic Sitting 110 mmHg BP Diastolic Sitting 80 mmHg BP Systolic Standing 108 mmHg BP Diastolic Standing 76 mmHg BMI (Body Mass Index) 26.7 kg/m2 02/13/2006 3:13pm Height 72 inches 6'0" Weight 196.00 lb Heart Rate 66 /min BP Systolic Sitting 130 mmHg BP Diastolic Sitting 82 mmHg Respiratory Rate 18 /min BMI (Body Mass Index) 26.6 kg/m2 2005 8:42am Height 72 inches 6'0" Weight 195.00 lb Heart Rate 63 /min BP Systolic Sitting 144 mmHg R BP Diastolic Sitting 100 mmHg R BP Systolic Standing 140 mmHg R BP Diastolic Standing 100 mmHg R BMI (Body Mass Index) 26.4 kg/m2 11/24/2005 10:01am Height 72 inches 6'0" Weight 199.00 lb Heart Rate 53 /min BP Systolic Sitting 124 mmHg L BP Diastolic Sitting 70 mmHg L BP Systolic Standing 118 mmHg L BP Diastolic Standing 80 mmHg L BMI (Body Mass Index) 27.0 kg/m2 05/13/2004 3:17pm Height 72 inches 6'0" Weight 196.00 lb Heart Rate 60 /min BP Systolic Sitting 120 mmHg L BP Diastolic Sitting 80 mmHg L BP Systolic Standing 122 mmHg L BP Diastolic Standing 80 mmHg L BMI (Body Mass Index) 26.6 kg/m2 11/06/2003 1:37pm Height 72 inches Weight 196.00 lb Heart Rate 60 /min BP Systolic Sitting 124 mmHg BP Diastolic Sitting 84 mmHg BP Systolic Standing 114 mmHg BP Diastolic Standing 86 mmHg BMI (Body Mass Index) 26.6 kg/m2 05/21/2003 10:45am Height 72 inches Weight 196.00 lb Heart Rate 66 /min BP Systolic Sitting 124 mmHg BP Diastolic Sitting 80 mmHg BP Systolic Standing 112 mmHg BP Diastolic Standing 82 mmHg BMI (Body Mass Index) 26.6 kg/m2 05/07/2003 10:11am Height 72 inches Weight 191.00 lb Heart Rate 77 /min BP Systolic Sitting 118 mmHg BP Diastolic Sitting 82 mmHg BP Systolic Standing 120 mmHg BP Diastolic Standing 90 mmHg BMI (Body Mass Index) 25.9 kg/m2 Results Test Date Facility Test Result H/L Range Note Laboratory test 10/12/[facility] Magnesium 2.0 mg/dL N 1.9-2.7 [address] [place] [address] [phone] CBC Auto Diff 10/12/2018 [facility] White Blood 4.8 10^3/uL N 3.5-10.[address] [place] [address] [phone] Red Blood Count 4.41 10^6/uL N 4.18-5.48 Hemoglobin 14.0 g/dL N 14.0-18.0 Hematocrit 42 % N 42-52 Mean Corpuscular Volume 94 fL N 80-94 Mean Corpuscular Hemoglobin 32 pg High 27-31 Mean Corpuscular HGB Conc 34 g/dL N 31-36 Red Cell Distribution Width 14 % N 10.5-15 Platelet Count 148 10^3/uL Low 150-450 Mean Platelet Volume 9.4 fL N 7.4-10.4 Abs Neutrophils 3.0 10^3/uL N 1.5-7.7 Abs Lymphocytes 0.9 10^3/uL Low 1.0-4.8 Abs Monocytes 0.3 10^3/uL N 0-0.8 Abs Eosinophils 0.4 10^3/uL N 0-0.6 Abs Basophils 0.1 10^3/uL N 0-0.2 Abs Nucleated RBC 0.0 10^3/uL Granulocyte % 63.1 % Lymphocyte % 19.0 % Monocyte % 7.1 % Eosinophil % 8.9 % Basophil % 1.9 % Nucleated Red Blood Cells % 0.0 Lipid Profile 10/12/2018 [facility] Triglycerides 40 mg/dL 2 (Trig/Chol/HDL) [address] [place] [address] [phone] Cholesterol 103 mg/dL 3 HDL Cholesterol 43.2 mg/dL 4 LDL Cholesterol 52 mg/dL 5 Comp Metabolic Panel 10/12/2018 [facility] Sodium 139 mmol/L N 135-[address] [place] [address] [phone] Potassium 4.2 mmol/L N 3.5-5.0 Chloride 104 mmol/L N 101-111 Co2 Carbon Dioxide 29 mmol/L N 22-32 Anion Gap 6 mmol/L N 2-11 Glucose 96 mg/dL N 70-100 Blood Urea Nitrogen 14 mg/dL N 6-24 Creatinine 1.00 mg/dL N 0.67-1.17 BUN/Creatinine Ratio 14.0 N 8-20 Calcium 9.1 mg/dL N 8.6-10.3 Total Protein 6.6 g/dL N 6.4-8.9 Albumin 4.2 g/dL N 3.2-5.2 Globulin 2.4 g/dL N 2-4 Albumin/Globulin Ratio 1.8 N 1-3 Total Bilirubin 0.80 mg/dL N 0.2-1.0 Alkaline Phosphatase 55 U/L N 34-104 Alt 27 U/L N 7-52 Ast 33 U/L N 13-39 Egfr Non- 72.1 >60 Egfr 87.2 >60 6 Lipid Panel - 10/12/2018 [facility] Creatine 147 U/L N 10-[address] Kinase(CK) [place] [address] [phone] Vitamin B12 10/12/2018 [facility] Vitamin B12 879 pg/mL N 180- 914 [address] [place] [address] [phone] Folic Acid (Folate) > 20.00 ng/mL >3.99 Iron & Iron Binding 10/12/2018 [facility] Iron 90 g/dL N 50- [address] [place] [address] [phone] Unsaturated Iron Binding < 339 g/dL Total Iron Binding Capacity 354 g/dL N 250-450 Transferrin 253 mg/dL N 203-362 % Iron Saturation 25 % N 15-55 Laboratory test 10/12/2018 [facility] Ferritin 38.1 ng/mL N 24 -[address] [place] [address] [phone] Lipid Panel - JFM 02/21/2018 [facility] Creatine 159 U/L N 10- [address] Kinase(CK) [place] [address] [phone] Comp Metabolic 02/21/2018 [facility] Sodium 140 mmol/L N 135- [address] [place] [address] [phone] Potassium 4.3 mmol/L N 3.5-5.0 Chloride 105 mmol/L N 101-111 Co2 Carbon Dioxide 29 mmol/L N 22-32 Anion Gap 6 mmol/L N 2-11 Glucose 105 mg/dL High 70-100 Blood Urea Nitrogen 14 mg/dL N 6-24 Creatinine 0.98 mg/dL N 0.67-1.17 BUN/Creatinine Ratio 14.3 N 8-20 Calcium 9.2 mg/dL N 8.6-10.3 Total Protein 6.6 g/dL N 6.4-8.9 Albumin 4.1 g/dL N 3.2-5.2 Globulin 2.5 g/dL N 2-4 Albumin/Globulin Ratio 1.6 N 1-3 Total Bilirubin 0.80 mg/dL N 0.2-1.0 Alkaline Phosphatase 61 U/L N 34-104 Alt 23 U/L N 7-52 Ast 29 U/L N 13-39 Egfr Non- 73.8 >60 Egfr 89.3 >60 9 Lipid Profile 02/21/2018 [facility] Triglycerides 41 mg/dL 10 (Trig/Chol/HDL) [address] [place] [address] [phone] Cholesterol 102 mg/dL 11 HDL Cholesterol 40.6 mg/dL 12 LDL Cholesterol 53 mg/dL 13 CBC Auto Diff 02/21/2018 [facility] White Blood 3.8 10^3/uL N 3.5-10.[address] [place] [address] [phone] Red Blood Count 4.54 10^6/uL N 4.00-5.40 Hemoglobin 11.9 g/dL Low 14.0-18.0 Hematocrit 37 % Low 42-52 Mean Corpuscular Volume 81 fL N 80-94 Mean Corpuscular Hemoglobin 26 pg Low 27-31 Mean Corpuscular HGB Conc 32 g/dL N 31-36 Red Cell Distribution Width 17 % High 10.5-15 Platelet Count 198 10^3/uL N 150-450 Mean Platelet Volume 8.5 um3 N 7.4-10.4 Abs Neutrophils 2.4 10^3/uL N 1.5-7.7 Abs Lymphocytes 0.7 10^3/uL Low 1.0-4.8 Abs Monocytes 0.3 10^3/uL N 0-0.8 Abs Eosinophils 0.2 10^3/uL N 0-0.6 Abs Basophils 0.1 10^3/uL N 0-0.2 Abs Nucleated RBC 0 10^3/uL Granulocyte % 63.0 % N 38-83 Lymphocyte % 19.7 % Low 25-47 Monocyte % 9.1 % High 0-7 Eosinophil % 6.4 % High 0-6 Basophil % 1.8 % N 0-2 Nucleated Red Blood Cells % 0.1 Protein 02/21/2018 [facility] Total 6.9 g/dL 6.3 - Electrophoresis [address] [employer] Protein(Pep) 7.9 [place] [address] [phone] Albumin 3.6 g/dL 3.4-4.7 Alpha-1 Globulin 0.3 g/dL 0.1-0.3 Alpha-2 Globulin 0.8 g/dL 0.6-1.0 Beta Globulin 0.9 g/dL 0.7-1.2 Gamma Globulin 1.4 g/dL 0.6-1.6 Albumin/Globulin Ratio 1.09 Impression See Comment 14 Iron & Iron Binding 02/21/2018 [facility] Iron 40 g/dL Low 50-[address] [place] [address] [phone] Unsaturated Iron Binding 381 g/dL Total Iron Binding Capacity 421 g/dL N 250-450 Transferrin 301 mg/dL N 203-362 % Iron Saturation 10 % Low 15-55 Laboratory test 02/21/2018 [facility] Ferritin 29.0 ng/mL N 24 -[address] [place] [address] [phone] CBC Auto Diff 11/22/2017 [facility] White Blood 4.6 10^3/uL N 3.5-10.[address] [place] [address] [phone] Red Blood Count 4.22 10^6/uL N 4.00-5.40 Hemoglobin 11.0 g/dL Low 14.0-18.0 Hematocrit 33 % Low 42-52 Mean Corpuscular Volume 79 fL Low 80-94 Mean Corpuscular Hemoglobin 26 pg Low 27-31 Mean Corpuscular HGB Conc 33 g/dL N 31-36 Red Cell Distribution Width 24 % High 10.5-15 Platelet Count 161 10^3/uL N 150-450 Mean Platelet Volume 8.6 um3 N 7.4-10.4 Abs Neutrophils 3.5 10^3/uL N 1.5-7.7 Abs Lymphocytes 0.7 10^3/uL Low 1.0-4.8 Abs Monocytes 0.3 10^3/uL N 0-0.8 Abs Eosinophils 0.1 10^3/uL N 0-0.6 Abs Basophils 0 10^3/uL N 0-0.2 Abs Nucleated RBC 0 10^3/uL Granulocyte % 76.0 % N 38-83 Lymphocyte % 14.2 % Low 25-47 Monocyte % 5.5 % N 0-7 Eosinophil % 3.2 % N 0-6 Basophil % 1.1 % N 0-2 Nucleated Red Blood Cells % 0 Iron & Iron Binding 11/22/2017 [facility] Iron 55 g/dL N 50- 212 [address]acity [address] [place] [address] [phone] Unsaturated Iron Binding 320 g/dL Total Iron Binding Capacity 375 g/dL N 250-450 Transferrin 268 mg/dL N 203-362 % Iron Saturation 15 % N 15-55 Comp Metabolic Panel 11/22/2017 [facility] Sodium 137 mmol/L N 135-145 [address] [place] [address] [phone] Potassium 4.4 mmol/L N 3.5-5.0 Chloride 104 mmol/L N 101-111 Co2 Carbon Dioxide 27 mmol/L N 22-32 Anion Gap 6 mmol/L N 2-11 Glucose 134 mg/dL High 70-100 Blood Urea Nitrogen 17 mg/dL N 6-24 Creatinine 1.10 mg/dL N 0.67-1.17 BUN/Creatinine Ratio 15.5 N 8-20 Calcium 9.0 mg/dL N 8.6-10.3 Total Protein 6.3 g/dL Low 6.4-8.9 Albumin 3.7 g/dL N 3.2-5.2 Globulin 2.6 g/dL N 2-4 Albumin/Globulin Ratio 1.4 N 1-3 Total Bilirubin 0.50 mg/dL N 0.2-1.0 Alkaline Phosphatase 54 U/L N 34-104 Alt 27 U/L N 7-52 Ast 30 U/L N 13-39 Egfr Non- 64.7 >60 Egfr 78.3 >60 15 Laboratory test 11/22/2017 [facility] Lyme Disease Positive Negative [address] [place] [address] [phone] Lyme Western 11/22/2017 [facility] Lyme Disease Negative Negative Blot [address] [place] [address] [phone] Lyme Disease IgG Bands Present No bands detecte <SEE NOTE> kDa 17 Lyme Disease IgM Ab WB Negative Negative Lyme Disease IgM Bands Present No bands detecte <SEE NOTE> kDa 18 Lyme Disease Interpretation See Comment 19 Iron & Iron 11/01/2017 [facility] Total Iron 346 g/dL N 250- [address] [place] [address] Capacity [phone] Transferrin 247 mg/dL N 203-362 Iron < 15 g/dL Low 50-212 Unsaturated Iron Binding 331.46168 g/dL % Iron Saturation 4 % Low 15-55 Comp Metabolic Panel 11/01/2017 [facility] Sodium 136 mmol/L Low 139-[address] [place] [address] [phone] Potassium 4.4 mmol/L N 3.5-5.0 Chloride 102 mmol/L N 101-111 Co2 Carbon Dioxide 27 mmol/L N 22-32 Anion Gap 7 mmol/L N 2-11 Glucose 109 mg/dL High 70-100 Blood Urea Nitrogen 19 mg/dL N 6-24 Creatinine 0.97 mg/dL N 0.67-1.17 BUN/Creatinine Ratio 19.6 N 8-20 Calcium 8.6 mg/dL N 8.6-10.3 Total Protein 6.3 g/dL Low 6.4-8.9 Albumin 3.6 g/dL N 3.2-5.2 Globulin 2.7 g/dL N 2-4 Albumin/Globulin Ratio 1.3 N 1-3 Total Bilirubin 0.50 mg/dL N 0.2-1.0 Alkaline Phosphatase 51 U/L N 34-104 Alt 17 U/L N 7-52 Ast 20 U/L N 13-39 Egfr Non- 74.9 >60 Egfr 96.3 >60 20 CBC Auto Diff 11/01/2017 [facility] White Blood 4.1 10^3/uL N 3.5-10.[address] [place] [address] [phone] Red Blood Count 4.23 10^6/uL N 4.0-5.4 Hemoglobin 11.1 g/dL Low 14.0-18.0 Hematocrit 34 % Low 42-52 Mean Corpuscular Volume 79 fL Low 80-94 Mean Corpuscular Hemoglobin 26 pg Low 27-31 Mean Corpuscular HGB Conc 33 g/dL N 31-36 Red Cell Distribution Width 25 % High 10.5-15 Platelet Count 171 10^3/uL N 150-450 Mean Platelet Volume 9.2 um3 N 7.4-10.4 Abs Neutrophils 2.9 10^3/uL N 1.5-7.7 Abs Lymphocytes 0.7 10^3/uL Low 1.0-4.8 Abs Monocytes 0.4 10^3/uL N 0-0.8 Abs Eosinophils 0.1 10^3/uL N 0-0.6 Abs Basophils 0 10^3/uL N 0-0.2 Abs Nucleated RBC 0 10^3/uL Granulocyte % 71.3 % N 38-83 Lymphocyte % 17.2 % Low 25-47 Monocyte % 9.0 % High 0-7 Eosinophil % 1.4 % N 0-6 Basophil % 1.1 % N 0-2 Nucleated Red Blood Cells % 0.1 Comp Metabolic Panel 02/02/2017 [facility] Sodium 137 mmol/L N 133-[address] [place] [address] [phone] Potassium 3.9 mmol/L N 3.5-5.0 Chloride 102 mmol/L N 101-111 Co2 Carbon Dioxide 30 mmol/L N 22-32 Anion Gap 5 mmol/L N 2-11 Glucose 97 mg/dL N 70-100 Blood Urea Nitrogen 15 mg/dL N 6-24 Creatinine 1.09 mg/dL N 0.67-1.17 BUN/Creatinine Ratio 13.8 N 8-20 Calcium 9.0 mg/dL N 8.6-10.3 Total Protein 6.5 g/dL N 6.4-8.9 Albumin 3.9 g/dL N 3.2-5.2 Globulin 2.6 g/dL N 2-4 Albumin/Globulin Ratio 1.5 N 1-3 Total Bilirubin 0.90 mg/dL N 0.2-1.0 Alkaline Phosphatase 49 U/L N 34-104 Alt 17 U/L N 7-52 Ast 21 U/L N 13-39 Egfr Non- 65.4 N >60 Egfr 84.1 N >60 21 Laboratory test 02/02/2017 [facility] Vitamin B12 820 pg/mL N 180-914 [address] [place] [address] [phone] CBC Auto Diff 02/02/2017 [facility] White Blood 4.6 10^3/uL N 3.5-10.[address] [place] [address] [phone] Red Blood Count 4.47 10^6/uL N 4.0-5.4 Hemoglobin 14.1 g/dL N 14.0-18.0 Hematocrit 42 % N 42-52 Mean Corpuscular Volume 93 fL N 80-94 Mean Corpuscular Hemoglobin 32 pg High 27-31 Mean Corpuscular HGB Conc 34 g/dL N 31-36 Red Cell Distribution Width 13 % N 10.5-15 Platelet Count 173 10^3/uL N 150-450 Mean Platelet Volume 9 um3 N 7.4-10.4 Abs Neutrophils 2.9 10^3/uL N 1.5-7.7 Abs Lymphocytes 1.1 10^3/uL N 1.0-4.8 Abs Monocytes 0.3 10^3/uL N 0-0.8 Abs Eosinophils 0.2 10^3/uL N 0-0.6 Abs Basophils 0.1 10^3/uL N 0-0.2 Abs Nucleated RBC 0.01 10^3/uL N Granulocyte % 64.2 % N 38-83 Lymphocyte % 23.8 % Low 25-47 Monocyte % 7.2 % N 1-9 Eosinophil % 3.6 % N 0-6 Basophil % 1.2 % N 0-2 Nucleated Red Blood Cells % 0.1 N Lipid Panel - 11/11/2016 [facility] Creatine 236 U/L High 10- [address] Kinase(CK) [place] [address] [phone] Comp Metabolic 11/11/2016 [facility] Sodium 138 N 133-[address] mmol/[place] [address] [phone] Potassium 4.0 mmol/L N 3.5-5.0 Chloride 102 mmol/L N 101-111 Co2 Carbon Dioxide 29 mmol/L N 22-32 Anion Gap 7 mmol/L N 2-11 Glucose 101 mg/dL High 70-100 Blood Urea Nitrogen 17 mg/dL N 6-24 Creatinine 1.12 mg/dL N 0.67-1.17 BUN/Creatinine Ratio 15.2 N 8-20 Calcium 8.9 mg/dL N 8.6-10.3 Total Protein 6.6 g/dL N 6.4-8.9 Albumin 4.1 g/dL N 3.2-5.2 Globulin 2.5 g/dL N 2-4 Albumin/Globulin Ratio 1.6 N 1-3 Total Bilirubin 1.00 mg/dL N 0.2-1.0 Alkaline Phosphatase 51 U/L N 34-104 Alt 19 U/L N 7-52 Ast 25 U/L N 13-39 Egfr Non- 63.6 N >60 Egfr 81.8 N >60 23 Lipid Profile 11/11/2016 [facility] Triglycerides 39 mg/dL N 24 (Trig/Chol/HDL) [address] [place] [address] [phone] Cholesterol 100 mg/dL N 25 HDL Cholesterol 43.6 mg/dL N 26 LDL Cholesterol 49 mg/dL N 27 CBC Auto Diff 11/11/2016 [facility] White Blood 4.6 10^3/uL N 3.5-10.[address] [place] [address] [phone] Red Blood Count 4.69 10^6/uL N 4.0-5.4 Hemoglobin 14.9 g/dL N 14.0-18.0 Hematocrit 44 % N 42-52 Mean Corpuscular Volume 95 fL High 80-94 Mean Corpuscular Hemoglobin 32 pg High 27-31 Mean Corpuscular HGB Conc 34 g/dL N 31-36 Red Cell Distribution Width 14 % N 10.5-15 Platelet Count 146 10^3/uL Low 150-450 Mean Platelet Volume 9 um3 N 7.4-10.4 Abs Neutrophils 2.9 10^3/uL N 1.5-7.7 Abs Lymphocytes 1.1 10^3/uL N 1.0-4.8 Abs Monocytes 0.4 10^3/uL N 0-0.8 Abs Eosinophils 0.2 10^3/uL N 0-0.6 Abs Basophils 0 10^3/uL N 0-0.2 Abs Nucleated RBC 0.01 10^3/uL N Granulocyte % 63.4 % N 38-83 Lymphocyte % 23.6 % Low 25-47 Monocyte % 7.9 % N 1-9 Eosinophil % 4.1 % N 0-6 Basophil % 1.0 % N 0-2 Nucleated Red Blood Cells % 0.1 N Laboratory test 11/11/2016 [facility] TSH (Thyroid 2.66 mcIU/mL N 0.34-5.[address] Stim Horm) [place] [address] [phone] B-Type Natriuretic Peptide BNP 170 pg/mL High 28 Magnesium 2.0 mg/dL N 1.9-2.7 Lipid Panel - 02/04/2016 [facility] Creatine 118 U/L N 10-[address] Kinase(CK) [place] [address] [phone] Laboratory test 02/04/2016 [facility] Magnesium 2.0 mg/dL N 1.9-2.[address] [place] [address] [phone] Comp Metabolic 02/04/2016 [facility] Sodium 137 N 133-[address] mmol/[place] [address] [phone] Potassium 4.2 mmol/L N 3.5-5.0 Chloride 102 mmol/L N 101-111 Co2 Carbon Dioxide 30 mmol/L N 22-32 Anion Gap 5 mmol/L N 2-11 Glucose 90 mg/dL N 70-100 Blood Urea Nitrogen 14 mg/dL N 6-24 Creatinine 1.01 mg/dL N 0.67-1.17 BUN/Creatinine Ratio 13.9 N 8-20 Calcium 8.6 mg/dL N 8.6-10.3 Total Protein 6.1 g/dL Low 6.4-8.9 Albumin 3.9 g/dL N 3.2-5.2 Globulin 2.2 g/dL N 2-4 Albumin/Globulin Ratio 1.8 N 1-3 Total Bilirubin 0.80 mg/dL N 0.2-1.0 Alkaline Phosphatase 43 U/L N 34-104 Alt 20 U/L N 7-52 Ast 23 U/L N 13-39 Egfr Non- 71.6 N >60 Egfr 92.1 N >60 31 Lipid Profile 02/04/2016 [facility] Triglycerides 64 mg/dL N 32 (Trig/Chol/HDL) [address] [place] [address] [phone] Cholesterol 103 mg/dL N 33 HDL Cholesterol 34.4 mg/dL N 34 LDL Cholesterol 56 mg/dL N 35 CBC Auto Diff 02/04/2016 [facility] White Blood 5.9 10^3/uL N 3.5-10.[address] [place] [address] [phone] Red Blood Count 4.68 10^6/uL N 4.0-5.4 Hemoglobin 14.5 g/dL N 14.0-18.0 Hematocrit 44 % N 42-52 Mean Corpuscular Volume 94 fL N 80-94 Mean Corpuscular Hemoglobin 31 pg N 27-31 Mean Corpuscular HGB Conc 33 g/dL N 31-36 Red Cell Distribution Width 13 % N 10.5-15 Platelet Count 138 10^3/uL Low 150-450 Mean Platelet Volume 9 um3 N 7.4-10.4 Abs Neutrophils 4.5 10^3/uL N 1.5-7.7 Abs Lymphocytes 0.9 10^3/uL Low 1.0-4.8 Abs Monocytes 0.4 10^3/uL N 0-0.8 Abs Eosinophils 0.2 10^3/uL N 0-0.6 Abs Basophils 0 10^3/uL N 0-0.2 Abs Nucleated RBC 0 10^3/uL N Granulocyte % 75.8 % N 38-83 Lymphocyte % 14.9 % Low 25-47 Monocyte % 6.0 % N 1-9 Eosinophil % 2.6 % N 0-6 Basophil % 0.7 % N 0-2 Nucleated Red Blood Cells % 0 N Laboratory test 11/24/2015 [facility] B-Type 101 pg/mL High [address] [place] [address] Peptide BNP [phone] CBC Auto Diff 11/24/2015 [facility] White Blood 4.4 N 3.5-[address] Count 10^3/uL 0.8 [place] [address] [phone] Red Blood Count 4.79 10^6/uL N 4.0-5.4 Hemoglobin 15.0 g/dL N 14.0-18.0 Hematocrit 45 % N 42-52 Mean Corpuscular Volume 94 fL N 80-94 Mean Corpuscular Hemoglobin 31 pg N 27-31 Mean Corpuscular HGB Conc 34 g/dL N 31-36 Red Cell Distribution Width 13 % N 10.5-15 Platelet Count 139 10^3/uL Low 150-450 Mean Platelet Volume 9 um3 N 7.4-10.4 Abs Neutrophils 2.6 10^3/uL N 1.5-7.7 Abs Lymphocytes 1.2 10^3/uL N 1.0-4.8 Abs Monocytes 0.4 10^3/uL N 0-0.8 Abs Eosinophils 0.2 10^3/uL N 0-0.6 Abs Basophils 0 10^3/uL N 0-0.2 Abs Nucleated RBC 0 10^3/uL N Granulocyte % 59.8 % N 38-83 Lymphocyte % 26.1 % N 25-47 Monocyte % 8.2 % N 1-9 Eosinophil % 5.0 % N 0-6 Basophil % 0.9 % N 0-2 Nucleated Red Blood Cells % 0.1 N Laboratory test 11/24/2015 [facility] Magnesium 1.9 mg/dL N 1.9-2.7 [address] [place] [address] [phone] Lipid Profile 11/24/2015 [facility] Triglycerides 42 mg/dL N 38 (Trig/Chol/HDL) [address] [place], [place] [id number] [phone] Cholesterol 93 mg/dL N 39 HDL Cholesterol 36.1 mg/dL N 40 LDL Cholesterol 49 mg/dL N 41 Comp Metabolic Panel 11/24/2015 [facility] Sodium 136 mmol/L N 133-[address] [place] [address] [phone] Potassium 4.1 mmol/L N 3.5-5.0 Chloride 102 mmol/L N 101-111 Co2 Carbon Dioxide 28 mmol/L N 22-32 Anion Gap 6 mmol/L N 2-11 Glucose 96 mg/dL N 70-100 Blood Urea Nitrogen 15 mg/dL N 6-24 Creatinine 1.10 mg/dL N 0.67-1.17 BUN/Creatinine Ratio 13.6 N 8-20 Calcium 9.1 mg/dL N 8.6-10.3 Total Protein 6.3 g/dL Low 6.4-8.9 Albumin 4.2 g/dL N 3.2-5.2 Globulin 2.1 g/dL N 2-4 Albumin/Globulin Ratio 2.0 N 1-3 Total Bilirubin 0.90 mg/dL N 0.2-1.0 Alkaline Phosphatase 40 U/L N 34-104 Alt 24 U/L N 7-52 Ast 29 U/L N 13-39 Egfr Non- 65.1 N >60 Egfr 83.7 N >60 42 Lipid Panel - 11/24/2015 [facility] Creatine 246 U/L High 10- 223 [address] Kinase(CK) [place] [address] [phone] Lipid Panel - 12/18/2014 [facility] Creatine 157 U/L N 10-223 44, [address] Kinase(CK) [place] [address] [phone] Comp Metabolic 12/18/2014 [facility] Sodium 137 N 133-[address] mmol/[place] [address] [phone] Potassium 4.0 mmol/L N 3.5-5.0 Chloride 103 mmol/L N 101-111 Co2 Carbon Dioxide 30 mmol/L N 22-32 Anion Gap 4 mmol/L N 2-11 Glucose 99 mg/dL N 70-100 Blood Urea Nitrogen 14 mg/dL N 6-24 Creatinine 1.07 mg/dL N 0.67-1.17 BUN/Creatinine Ratio 13.1 N 8-20 Calcium 9.0 mg/dL N 8.6-10.3 Total Protein 6.5 g/dL N 6.4-8.9 Albumin 4.3 g/dL N 3.2-5.2 Globulin 2.2 g/dL N 2-4 Albumin/Globulin Ratio 2.0 N 1-3 Total Bilirubin 0.60 mg/dL N 0.2-1.0 Alkaline Phosphatase 41 U/L N 34-104 Alt 23 U/L N 7-52 Ast 25 U/L N 13-39 Egfr Non- 67.4 N >60 Egfr 86.6 N >60 46 Lipid Profile 12/18/2014 [facility] Triglycerides 42 mg/dL N 47 (Trig/Chol/HDL) [address] [place] [address] [phone] Cholesterol 102 mg/dL N 48 HDL Cholesterol 37.0 mg/dL N 49 LDL Cholesterol 57 mg/dL N 50 Laboratory test 02/27/2014 [facility] Blood Urea 16 mg/dL N 6- [address] [address] [phone] Creatinine 02/27/2014 [facility] Creatinine 1.03 mg/dL N 0.67- 1.17 [address] [place] [address] [phone] Egfr Non- 70.4 N >60 Egfr 90.5 N >60 51 Lipid Profile 01/09/2014 [facility] Triglycerides 36 mg/dL N 52, 53 (Trig/Chol/HDL) [address] [place] [address] [phone] Cholesterol 95 mg/dL N 54 HDL Cholesterol 43.2 mg/dL N 55 LDL Cholesterol 45 mg/dL N 56 Basic Metabolic Panel 01/09/2014 [facility] Sodium 136 mmol/L N 133-145 [address] [place] [address] [phone] Potassium 4.3 mmol/L N 3.7-5.6 Chloride 103 mmol/L N 101-111 Co2 Carbon Dioxide 30 mmol/L N 22-32 Anion Gap 3 mmol/L N 2-11 Glucose 101 mg/dL High 70-100 Blood Urea Nitrogen 12 mg/dL N 6-24 Creatinine 1.11 mg/dL N 0.67-1.17 BUN/Creatinine Ratio 10.8 N 8-20 Calcium 9.0 mg/dL N 8.6-10.3 Egfr Non- 64.6 N >60 Egfr 83.1 N >60 57 Basic Metabolic Panel 01/10/2013 [facility] Sodium 136 mmol/L 133-145 [address] [place] [address] [phone] Potassium 4.5 mmol/L 3.5-5.0 Chloride 101 mmol/L 101-111 Co2 Carbon Dioxide 29.0 mmol/L 22-32 Anion Gap 6.0 mmol/L 2-11 Glucose 85 mg/dL 70-100 Blood Urea Nitrogen 15 mg/dL 6-24 Creatinine 1.00 mg/dL 0.50-1.40 BUN/Creatinine Ratio 15.0 8-20 Calcium 9.3 mg/dL 8.1-9.9 Egfr Non- 73.0 >60 Egfr 93.9 >60 58 Basic Metabolic Panel 12/11/2012 [facility] Sodium 137 mmol/L 133-145 [address] [place] [address] [phone] Potassium 4.4 mmol/L 3.5-5.0 Chloride 103 mmol/L 101-111 Co2 Carbon Dioxide 31.0 mmol/L 22-32 Anion Gap 3.0 mmol/L 2-11 Glucose 97 mg/dL 70-100 Blood Urea Nitrogen 13 mg/dL 6-24 Creatinine 1.00 mg/dL 0.50-1.40 BUN/Creatinine Ratio 13.0 8-20 Calcium 9.2 mg/dL 8.1-9.9 Egfr Non- 73.2 >60 Egfr 94.2 >60 59 Laboratory test 12/11/2012 [facility] Creatine 158 U/L 0-200 finding 101 [facility] [place] [address] [phone] Laboratory test 11/18/2012 [facility] Lyme Disease Negative Negative 60 finding 101 [facility] [place] [address] [phone] Laboratory test 11/18/2012 [facility] Creatine 180 U/L 0-200 finding 101 [facility] [place] [address] [phone] Blood Culture (SEE NOTE) 61 CBC Auto Diff 11/18/2012 [facility] White Blood 8.6 10^3/uL 4.8-10.[address] [place] [address] [phone] Red Blood Count 4.68 10^6/uL 4.0-5.4 Hemoglobin 15.0 g/dL 14.0-18.0 Hematocrit 44 % 42-52 Mean Corpuscular Volume 94 fL 80-94 Mean Corpuscular Hemoglobin 32 pg High 27-31 Mean Corpuscular HGB Conc 34 g/dL 31-36 Red Cell Distribution Width 13 % 10.5-15 Platelet Count 128 10^3/uL Low 150-450 Mean Platelet Volume 9 um3 7.4-10.4 Abs Neutrophils 7.6 10^3/uL 1.5-7.7 Abs Lymphocytes 0.5 10^3/uL Low 1.0-4.8 Abs Monocytes 0.4 10^3/uL 0-0.8 Abs Eosinophils 0.1 10^3/uL 0-0.6 Abs Basophils 0 10^3/uL 0-0.2 Abs Nucleated RBC 0.01 10^3/uL Granulocyte % 88.1 % High 38-83 Lymphocyte % 6.2 % Low 25-47 Monocyte % 4.4 % 1-9 Eosinophil % 0.8 % 0-6 Basophil % 0.5 % 0-2 Nucleated Red Blood Cells % 0.1 Laboratory test 11/18/2012 [facility] Troponin I 0.02 ng/mL 0 -0.06 62 finding 101 [place] [address] [phone] B Type Natriuretic Peptide 155.0 pg/mL High 0-100 Comp Metabolic Panel 11/18/2012 [facility] Sodium 134 mmol/L 133-145 [address] [place] [address] [phone] Potassium 3.7 mmol/L 3.5-5.0 Chloride 103 mmol/L 101-111 Co2 Carbon Dioxide 25.0 mmol/L 22-32 Anion Gap 6.0 mmol/L 2-11 Glucose 147 mg/dL High 70-100 Blood Urea Nitrogen 13 mg/dL 6-24 Creatinine 1.00 mg/dL 0.50-1.40 BUN/Creatinine Ratio 13.0 8-20 Calcium 9.2 mg/dL 8.1-9.9 Total Protein 5.9 g/dL Low 6.2-8.1 Albumin 3.8 g/dL 3.2-5.2 Globulin 2.1 g/dL 2-4 Albumin/Globulin Ratio 1.8 1-3 Total Bilirubin 0.9 mg/dL 0.4-1.5 Alkaline Phosphatase 54 U/L 30-110 Alt 27 U/L 14-54 Ast 33 U/L 12-42 Egfr Non- 73.2 >60 Egfr 94.2 >60 63 Urine Culture And 11/18/2012 [facility] Urine Culture (SEE NOTE ) 64 Sensitivities [address] [place] [address] [phone] Urinalysis 11/18/2012 [facility] Urine Color Yellow [address] [place] [address] [phone] Urine Appearance Clear Urine Specific Nelson 1.010 1.010-1.030 Urine Esterase Negative Negative Urine Nitrate Negative Negative Urine Urobilinogen Negative E.U./dL Negative Urine Protein Negative mg/dL Negative Urine pH 7.0 5-9 Urine Blood Negative Negative Urine Ketones Negative mg/dL Negative Urine Bilirubin Negative Negative Urine Glucose Negative mg/dL Negative Blood Culture 11/18/2012 [facility] Blood Culture (SEE NOTE) 65 [address] [place] [address] [phone] Laboratory test 11/18/2012 [facility] Lactic Acid 0.8 mmol/L 0.5-1. [address] [facility] 6 [place] [address] [phone] Lipid Profile 10/05/2012 [facility] Triglycerides 33 mg/dL Low 40-200 (Trig/Chol/HDL) [address] [place] [address] [phone] Cholesterol 104 mg/dL Less than 200 HDL Cholesterol 38 mg/dL Low 40-60 66 Cholesterol/HDL Ratio 2.7 Average 1-4.44 LDL Cholesterol 59.4 mg/dL Less Than 100 67 Comp Metabolic Panel 10/05/2012 [facility] Sodium 139 mmol/L 133-145 [address] [place] [address] [phone] Potassium 4.0 mmol/L 3.5-5.0 Chloride 105 mmol/L 101-111 Co2 Carbon Dioxide 29.0 mmol/L 22-32 Anion Gap 5.0 mmol/L 2-11 Glucose 96 mg/dL 70-100 Blood Urea Nitrogen 17 mg/dL 6-24 Creatinine 1.00 mg/dL 0.50-1.40 BUN/Creatinine Ratio 17.0 8-20 Calcium 9.4 mg/dL 8.1-9.9 Total Protein 5.7 g/dL Low 6.2-8.1 Albumin 3.8 g/dL 3.2-5.2 Globulin 1.9 g/dL Low 2-4 Albumin/Globulin Ratio 2.0 1-3 Total Bilirubin 1.1 mg/dL 0.4-1.5 Alkaline Phosphatase 46 U/L 30-110 Alt 29 U/L 14-54 Ast 36 U/L 12-42 Egfr Non- 73.2 >60 Egfr 94.2 >60 68 Lipid Panel - 10/05/2012 [facility] Creatine Kinase 371 U/L High 0-[address] [place] [address] [phone] CBC Auto Diff 09/22/2011 [facility] White Blood 4.1 CUMM Low 4.8-10.[address] [place] [place] [address] [phone] Red Cell Count 4.68 CUMM 4.6-6.2 Hemoglobin 15.3 g/dL 14.0-18.0 Hematocrit 44 % 42-52 Mean Corpuscular Volume 94 um3 80-94 Mean Corpuscular Hemoglob 33 pg High 27-31 Mean Corpuscular HGB Cone 35 g/dL 32-36 Redcell Distribution WDTH 13 % 10.5-15 Platelet Count 152 CUMM 150-450 Mean Platelet Volume 9.1 um3 7.4-10.4 Gran % 52.8 % 38-83 Lymph % 29.9 % 25-47 Mononuclear % 8.8 % 1-9 Eosinophil % 7.8 % High 0-6 Basophil % 0.7 % 0-2 Abs Lymphs 1.2 1.0-4.8 Abs Mononuclear 0.4 0-0.8 Absolute Neutrophil Count 2.1 1.5-7.7 Abs Eosinophils 0.3 0-0.6 Abs Basophils 0 0-0.2 Laboratory test 09/22/2011 [facility] TSH 3.15 MIU/ML 0.34- 5.[address] [place] [address] [phone] Comp Metabolic 09/22/2011 [facility] Sodium 137 mmol/L 135- [address] [place] [address] [phone] Potassium 4.3 mmol/L 3.5-5.0 Chloride 103 mmol/L 101-111 Co2 (Carbon Dioxide) 30.0 mmol/L 22-32 Anion Gap 4.0 mmol/L 2-11 69 Glucose 99 mg/dL 70-100 BUN 14 mg/dL 6-24 Creatinine 1.0 mg/dL 0.50-1.40 One Over Creatinine 1.00 BUN/Creatinine Ratio 14.0 8-20 Calcium 8.8 mg/dL 8.1-9.9 Total Protein 5.8 GM/DL Low 6.2-8.1 Albumin 3.6 GM/DL 3.2-5.2 Globulin 2.2 GM/DL 2-4 Albumin/Globulin Ratio 1.6 1-3 Bilirubin Total 1.0 mg/dL 0.4-1.5 70 Alkaline Phosphatase 48 U/L 39-117 Alt (SGPT) 28 U/L 17-63 Ast (Sgot) 29 U/L 12-42 eGFR Non- 73.5 > 60 eGFR 94.5 > 60 71 Lipid Profile 09/22/2011 [facility] Triglyceride 26 mg/dL Low 40-200 (Trig/Chol/HDL) [address] [place] [address] [phone] Cholesterol 96 mg/dL Low Less Than 200 72 High Density Lipoprotein 34 mg/dL Low 40-60 73 Cholesterol/HDL Ratio 2.82 AVERAGE 1-4.97 Low Density Lipoprotein 57 mg/dL Less Than 100 74 Laboratory test 09/22/2011 [facility] C Reactive < 0.5 mg/dL Less Than finding [address] Protein 0.5 [place] [address] [phone] Erythrocyte Sed Rate 7 MM/HR 0-40 CPK (Creatine Kinase) 183 U/L 0-200 Lipid Panel - 11/02/2010 [facility] CPK (Creatine 183 U/L 0- [address] Kinase) [place] [address] [phone] Comp Metabolic 11/02/2010 [facility] Sodium 140 135-[address] mmol/[place] [address] [phone] Potassium 4.6 mmol/L 3.5-5.0 Chloride 106 mmol/L 101-111 Co2 (Carbon Dioxide) 30.0 mmol/L 22-32 Anion Gap 4.0 mmol/L 2-11 75 Glucose 98 mg/dL 70-100 BUN 15 mg/dL 6-24 Creatinine 1.10 mg/dL 0.50-1.40 One Over Creatinine 0.90 BUN/Creatinine Ratio 13.6 8-20 Calcium 9.1 mg/dL 8.1-9.9 Total Protein 5.9 GM/DL Low 6.2-8.1 Albumin 3.8 GM/DL 3.2-5.2 Globulin 2.1 GM/DL 2-4 Albumin/Globulin Ratio 1.8 1-3 Bilirubin Total 1.0 mg/dL 0.4-1.5 76 Alkaline Phosphatase 46 U/L 39-117 Alt (SGPT) 29 U/L 17-63 Ast (Sgot) 31 U/L 12-42 eGFR Non- 66.0 > 60 eGFR 84.9 > 60 77 Lipid Profile 11/02/2010 [facility] Triglyceride 30 mg/dL Low 40-200 (Trig/Chol/HDL) [address] [place] [address] [phone] Cholesterol 101 mg/dL Less Than 200 78 High Density Lipoprotein 36 mg/dL Low 40-60 79 Cholesterol/HDL Ratio 2.81 AVERAGE 1-4.97 Low Density Lipoprotein 59 mg/dL Less Than 100 80 Laboratory test 02/10/2010 [facility] Vitamin B12 652 pg/mL 180-914 finding [address] [place] [address] [phone] FSH And LH 02/10/2010 [facility] FSH 9.73 MIU/ML 81 [address] [place] [address] [phone] Lutenizing Hormone 7.74 MIU/ML 82 Laboratory test 02/10/2010 [facility] Prolactin 8.48 NG/ML 1.0-20.0 finding [address] [place] [address] [phone] Testosterone Total 417.0 ng/dL 175-781 Basic Metabolic Panel 11/20/2009 [facility] Sodium 140 mmol/L 135-145 [address] [place] [address] [phone] Potassium 4.4 mmol/L 3.5-5.0 Chloride 105 mmol/L 101-111 Co2 (Carbon Dioxide) 31.0 mmol/L 22-32 Anion Gap 4.0 mmol/L 2-11 83 Glucose 101 mg/dL High 70-100 84 BUN 19 mg/dL 6-24 Creatinine 1.10 mg/dL 0.50-1.40 One Over Creatinine 0.90 BUN/Creatinine Ratio 17.6 8-20 Calcium 8.8 mg/dL 8.1-9.9 85 eGFR Non- 70.3 > 60 eGFR 85.1 > 60 86 Lipid Profile 11/20/2009 [facility] Triglyceride 42 mg/dL 40- 200 (Trig/Chol/HDL) [address] [place] [address] [phone] Cholesterol 107 mg/dL Less Than 200 87 High Density Lipoprotein 28 mg/dL Low 40-60 88 Cholesterol/HDL Ratio 3.82 AVERAGE 1-4.97 Low Density Lipoprotein 71 mg/dL Less Than 100 89 CBC With 11/20/2009 [facility] White Blood 4.1 CUMM Low 4.8- 10.8 Electronic Diff [address] [place] [place] [address] [phone] Red Cell Count 4.84 CUMM 4.6-6.2 Hemoglobin 15.5 g/dL 14.0-18.0 Hematocrit 46 % 42-52 Mean Corpuscular Volume 94 um3 80-94 Mean Corpuscular Hemoglob 32 pg High 27-31 Mean Corpuscular HGB Cone 34 g/dL 32-36 Redcell Distribution WDTH 13 % 10.5-15 Platelet Count 160 CUMM 150-450 Mean Platelet Volume 9.1 um3 7.4-10.4 Gran % 53.5 % 38-83 Lymph % 27.7 % 25-47 Mononuclear % 7.5 % 1-9 Eosinophil % 10.7 % High 0-6 Basophil % 0.6 % 0-2 Abs Lymphs 1.1 1.0-4.8 Abs Mononuclear 0.3 0-0.8 Absolute Neutrophil Count 2.2 1.5-7.7 Abs Eosinophils 0.4 0-0.6 Abs Basophils 0 0-0.2 Laboratory test 11/20/2009 [facility] CPK (Creatine 173 U/L 0 -[address] Kinase) [place] [address] [phone] Lipid Profile 05/07/2009 [facility] Triglyceride 49 mg/dL 40- 200 (Trig/Chol/HDL) [address] [place] [address] [phone] Cholesterol 107 mg/dL Less Than 200 90 High Density Lipoprotein 31 mg/dL Low 40-60 91 Cholesterol/HDL Ratio 3.45 AVERAGE 1-4.97 Low Density Lipoprotein 66 mg/dL Less Than 100 92 Laboratory test 05/07/2009 [facility] CPK (Creatine 157 U/L 0 -[address] Kinase) [place] [address] [phone] CBC With 05/07/2009 [facility] White Blood 4.4 CUMM Low 4.8- 10.8 Electronic Diff [address] [place] [address] [phone] Red Cell Count 5.04 CUMM 4.6-6.2 Hemoglobin 16.1 g/dL 14.0-18.0 Hematocrit 47 % 42-52 Mean Corpuscular Volume 93 um3 80-94 Mean Corpuscular Hemoglob 32 pg High 27-31 Mean Corpuscular HGB Cone 34 g/dL 32-36 Redcell Distribution WDTH 13 % 10.5-15 Platelet Count 158 CUMM 150-450 Mean Platelet Volume 9.0 um3 7.4-10.4 Gran % 48.4 % 38-83 Lymph % 32.4 % 25-47 Mononuclear % 9.5 % High 1-9 Eosinophil % 8.4 % High 0-6 Basophil % 1.3 % 0-2 Abs Lymphs 1.4 1.0-4.8 Abs Mononuclear 0.4 0-0.8 Absolute Neutrophil Count 2.1 1.5-7.7 Abs Eosinophils 0.4 0-0.6 Abs Basophils 0.1 0-0.2 Comp Metabolic Panel 05/07/2009 [facility] Sodium 139 mmol/L 135-[address] [place] [address] [phone] Potassium 4.3 mmol/L 3.5-5.0 Chloride 105 mmol/L 101-111 Co2 (Carbon Dioxide) 30.0 mmol/L 22-32 Anion Gap 4.0 mmol/L 2-11 93 Glucose 101 mg/dL High 70-100 94 BUN 9 mg/dL 6-24 Creatinine 1.10 mg/dL 0.50-1.40 One Over Creatinine 0.90 BUN/Creatinine Ratio 8.2 8-20 Calcium 9.1 mg/dL 8.1-9.9 95 Total Protein 6.2 GM/DL 6.2-8.1 Albumin 3.8 GM/DL 3.2-5.2 Globulin 2.4 GM/DL 2-4 Albumin/Globulin Ratio 1.6 1-3 Bilirubin Total 0.9 mg/dL 0.4-1.5 96 Alkaline Phosphatase 45 U/L 39-117 Alt (SGPT) 28 U/L 17-63 Ast (Sgot) 29 U/L 12-42 eGFR Non- 70.3 > 60 eGFR 85.1 > 60 97 CBC With 02/20/2009 [facility] White Blood 5.4 CUMM 4.8-10.8 Electronic Diff [address] [place] [place] [address] [phone] Red Cell Count 4.79 CUMM 4.6-6.2 Hemoglobin 15.2 g/dL 14.0-18.0 Hematocrit 45 % 42-52 Mean Corpuscular Volume 95 um3 High 80-94 Mean Corpuscular Hemoglob 32 pg High 27-31 Mean Corpuscular HGB Cone 34 g/dL 32-36 Redcell Distribution WDTH 13 % 10.5-15 Platelet Count 178 CUMM 150-450 Mean Platelet Volume 8.9 um3 7.4-10.4 Gran % 56.7 % 38-83 Lymph % 28.2 % 25-47 Mononuclear % 7.4 % 1-9 Eosinophil % 6.7 % High 0-6 Basophil % 1.0 % 0-2 Abs Lymphs 1.5 1.0-4.8 Abs Mononuclear 0.4 0-0.8 Absolute Neutrophil Count 3.0 1.5-7.7 Abs Eosinophils 0.4 0-0.6 Abs Basophils 0.1 0-0.2 Laboratory test 02/20/2009 [facility] TSH 2.39 MIU/ML 0.34- 5.[address] [place] [address] [phone] Laboratory test 02/10/2009 [facility] PSA,Diagnost 1.17 NG/ML 0-4 [address] [place] [address] [phone] Liver Function 02/10/2009 [facility] Total 6.2 GM/DL 6.2-8.[address] [place] [address] [phone] Albumin 3.6 GM/DL 3.2-5.2 Globulin 2.6 GM/DL 2-4 Albumin/Globulin Ratio 1.4 1-3 Bilirubin Total 0.9 mg/dL 0.4-1.5 99 Bilirubin Direct 0.2 mg/dL 0.1-0.5 Indirect Bilirubin 0.7 mg/dL 0.1-0.75 Alkaline Phosphatase 50 U/L 39-117 Alt (SGPT) 28 U/L 17-63 Ast (Sgot) 28 U/L 12-42 Basic Metabolic Panel 02/10/2009 [facility] Sodium 139 mmol/L 135-145 [address] [place] [address] [phone] Potassium 4.1 mmol/L 3.5-5.0 Chloride 104 mmol/L 101-111 Co2 (Carbon Dioxide) 29.0 mmol/L 22-32 Anion Gap 6.0 mmol/L 2-11 100 Glucose 99 mg/dL 70-100 101 BUN 12 mg/dL 6-24 Creatinine 1.10 mg/dL 0.50-1.40 One Over Creatinine 0.90 BUN/Creatinine Ratio 10.9 8-20 Calcium 8.9 mg/dL 8.1-9.9 102 eGFR Non- 70.3 > 60 eGFR 85.1 > 60 103 Lipid Profile 02/10/2009 [facility] Triglyceride 36 mg/dL Low 40-200 (Trig/Chol/HDL) [address] [place] [address] [phone] Cholesterol 104 mg/dL Less Than 200 104 High Density Lipoprotein 30 mg/dL Low 40-60 105 Cholesterol/HDL Ratio 3.47 AVERAGE 1-4.97 Low Density Lipoprotein 67 mg/dL Less Than 100 106 Laboratory test 02/06/2008 [facility] CPK (Creatine 128 U/L 0 -[address] Kinase) [place] [address] [phone] PSA,Diagnostic 1.42 NG/ML 0-4 107 Liver Function 02/06/2008 [facility] Total Protein 6.6 GM/DL 6.2-8.1 Panel [address] [place] [address] [phone] Albumin 3.9 GM/DL 3.2-5.2 Globulin 2.7 GM/DL 2-4 Albumin/Globulin Ratio 1.4 1-3 Bilirubin Total 0.9 mg/dL 0.4-1.5 Bilirubin Direct 0.2 mg/dL 0.1-0.5 Indirect Bilirubin 0.7 mg/dL 0.1-0.75 Alkaline Phosphatase 48 U/L 39-117 Alt (SGPT) 26 U/L 17-63 Ast (Sgot) 28 U/L 12-42 Lipid Profile 02/06/2008 [facility] Triglyceride 56 mg/dL 40- 200 (Trig/Chol/HDL) [address] [place] [address] [phone] Cholesterol 127 mg/dL Less Than 200 108 High Density Lipoprotein 31 mg/dL Low 40-60 109 Cholesterol/HDL Ratio 4.10 AVERAGE 1-4.97 Low Density Lipoprotein 85 mg/dL Less Than 100 110 Comp Metabolic Panel 02/06/2008 [facility] Sodium 141 mmol/L 135-145 [address] [place] [address] [phone] Potassium 4.2 mmol/L 3.5-5.0 Chloride 108 mmol/L 101-111 Co2 (Carbon Dioxide) 29.0 mmol/L 22-32 Anion Gap 4.0 mmol/L 2-11 111 Glucose 105 mg/dL High 70-100 112 BUN 10 mg/dL 6-24 Creatinine 1.2 mg/dL 0.5-1.4 One Over Creatinine 0.83 BUN/Creatinine Ratio 8.3 8-20 Calcium 8.9 mg/dL 8.1-9.9 113 Total Protein 7.1 GM/DL 6.2-8.1 Albumin 3.9 GM/DL 3.2-5.2 Globulin 3.2 GM/DL 2-4 Albumin/Globulin Ratio 1.2 1-3 Bilirubin Total 0.8 mg/dL 0.4-1.5 Alkaline Phosphatase 49 U/L 39-117 Alt (SGPT) 25 U/L 17-63 Ast (Sgot) 25 U/L 12-42 Comp Metabolic Panel 05/15/2007 [facility] One Over Creatinine 0.76 [address] [place] [address] [phone] Anion Gap 5.0 mmol/L 2-11 114 Albumin/Globulin Ratio 1.7 1-3 Albumin 4.0 GM/DL 3.2-5.2 Alkaline Phosphatase 46 U/L 39-117 Alt (SGPT) 29 U/L 17-63 Ast (Sgot) 29 U/L 12-42 BUN 16 mg/dL 6-24 Calcium 9.1 mg/dL 8.7-10.2 Chloride 104 mmol/L 101-111 Co2 (Carbon Dioxide) 29.0 mmol/L 22-32 Globulin 2.3 GM/DL 2-4 Glucose 97 mg/dL 70-105 Potassium 4.2 mmol/L 3.5-5.0 Sodium 138 mmol/L 135-145 Bilirubin Total 1.3 mg/dL 0.4-1.5 Total Protein 6.3 GM/DL 6.2-8.1 BUN/Creatinine Ratio 12.3 8-20 Creatinine 1.3 mg/dL 0.5-1.4 Lipid Profile 05/15/2007 [facility] Cholesterol/HDL 3.52 1- 4.97 (Trig/Chol/HDL) [address] [place] [address] [phone] Cholesterol 109 mg/dL Less Than 200 115 Triglyceride 62 mg/dL 40-200 High Density Lipoprotein 31 mg/dL Low 40-60 116 Low Density Lipoprotein 66 mg/dL Less Than 100 117 Lipid Panel - 05/15/2007 [facility] CPK (Creatine 159 U/L 0- [address] Kinase) [place] [address] [phone] Liver Function 01/31/2007 [facility] Albumin/Globulin 1.7 1- 3 [address] [place] [address] [phone] Albumin 3.8 GM/DL 3.2-5.2 Alkaline Phosphatase 46 U/L 39-117 Alt (SGPT) 27 U/L 17-63 Ast (Sgot) 29 U/L 12-42 Bilirubin Direct 0.2 mg/dL 0.1-0.5 Globulin 2.2 GM/DL 2-4 Indirect Bilirubin 0.9 mg/dL High 0.1-0.75 Bilirubin Total 1.1 mg/dL 0.4-1.5 Total Protein 6.0 GM/DL Low 6.2-8.1 Basic Metabolic 01/31/2007 [facility] One Over Creatinine 0.[address] [place] [address] [phone] Anion Gap 6.0 mmol/L 2-11 119 BUN 16 mg/dL 6-24 Calcium 8.3 mg/dL Low 8.7-10.2 Chloride 107 mmol/L 101-111 Co2 (Carbon Dioxide) 28.0 mmol/L 22-32 Glucose 95 mg/dL 70-105 Potassium 4.2 mmol/L 3.5-5.0 Sodium 141 mmol/L 135-145 BUN/Creatinine Ratio 13.3 8-20 Creatinine 1.2 mg/dL 0.5-1.4 CBC W/ Electronic 01/31/2007 [facility] White Blood 5.3 CUMM 4.8-10.[address] [place] [address] [phone] Abs Basophils 0 0-0.2 Abs Eosinophils 0.5 0-0.6 Absolute Neutrophil Count 2.9 1.5-7.7 Abs Lymphs 1.4 1.0-4.8 Abs Mononuclear 0.5 0-0.8 Basophil % 0.8 % 0-2 Hematocrit 45 % 42-52 Hemoglobin 15.7 g/dL 14.0-18.0 Eosinophil % 9.2 % High 0-6 Gran % 54.3 % 38-83 Lymph % 27.0 % 20-45 Mean Corpuscular HGB Cone 35 g/dL 32-36 Mean Corpuscular Hemoglob 32 pg High 27-31 Mean Corpuscular Volume 93 um3 80-94 Mean Platelet Volume 10.2 um3 7.4-10.4 Mononuclear % 8.7 % 1-9 Platelet Count 174 CUMM 150-450 Red Cell Count 4.86 CUMM 4.6-6.2 Redcell Distribution WDTH 13 % 10.5-15 Laboratory test 01/31/2007 [facility] PSA Screening 4.080 NG/ML High 0.01-4.[address] [place] [address] [phone] Lipid Profile 01/31/2007 [facility] Cholesterol/H 3.96 1- 4.97 (Trig/Chol/HDL) [address] [place] [address] [phone] Cholesterol 107 mg/dL Less Than 200 120 Triglyceride 59 mg/dL 40-200 High Density Lipoprotein 27 mg/dL Low 40-60 121 Low Density Lipoprotein 68 mg/dL Less Than 100 122 Comp Metabolic 09/26/2006 [facility] One Over Creatinine 1.00 [address] [place] [address] [phone] Anion Gap 5.0 mmol/L 2-11 124 Albumin/Globulin Ratio 1.8 1-3 Albumin 4.1 GM/DL 3.2-5.2 Alkaline Phosphatase 45 U/L 39-117 Alt (SGPT) 25 U/L 17-63 Ast (Sgot) 29 U/L 12-42 BUN 11 mg/dL 6-24 Calcium 8.8 mg/dL 8.7-10.2 Chloride 106 mmol/L 101-111 Co2 (Carbon Dioxide) 27.0 mmol/L 22-32 Globulin 2.3 GM/DL 2-4 Glucose 97 mg/dL 70-105 Potassium 4.2 mmol/L 3.5-5.0 Sodium 138 mmol/L 135-145 Bilirubin Total 0.9 mg/dL 0.4-1.5 Total Protein 6.4 GM/DL 6.2-8.1 BUN/Creatinine Ratio 11.0 8-20 Creatinine 1.0 mg/dL 0.5-1.4 Lipid Profile 09/26/2006 [facility] Cholesterol/HDL 3.83 1- 4.97 (Trig/Chol/HDL) [address] [place] [address] [phone] Cholesterol 115 mg/dL Less Than 200 125 Triglyceride 56 mg/dL 40-200 High Density Lipoprotein 30 mg/dL Low 40-60 126 Low Density Lipoprotein 74 mg/dL Less Than 100 127 Laboratory test 09/26/2006 [facility] CPK (Creatine 179 U/L 0 -[address] Kinase) [place] [address] [phone] Liver Function 10/28/2005 [facility] Bilirubin 0.2 mg/dL 0.1- 0.[address] [place] [address] [phone] Indirect Bilirubin 1.1 mg/dL High 0.1-0.75 Laboratory test 10/28/2005 [facility] CPK (Creatine 205 U/L High 0-[address] Kinase) [place] [address] [phone] Lipid Profile 10/28/2005 [facility] Cholesterol/HD 4.00 AVERAGE 1-4.97 (Trig/Chol/HDL) [address] [place] [address] [phone] Cholesterol 100 mg/dL Less Than 200 128 Triglyceride 49 mg/dL 40-200 High Density Lipoprotein 25 mg/dL Low 40-60 129 Low Density Lipoprotein 65 mg/dL Less Than 100 130 Comp Metabolic Panel 10/28/2005 [facility] One Over Creatinine 0.[address] [place] [address] [phone] Anion Gap 7.0 mmol/L 2-11 131 Albumin/Globulin Ratio 1.7 1-3 Albumin 3.8 GM/DL 3.2-5.2 Alkaline Phosphatase 46 U/L 39-117 Alt (SGPT) 30 U/L 17-63 Ast (Sgot) 31 U/L 12-42 BUN 13 mg/dL 6-24 Calcium 9.1 mg/dL 8.7-10.2 Chloride 104 mmol/L 101-111 Co2 (Carbon Dioxide) 29.0 mmol/L 22-32 Globulin 2.3 GM/DL 2-4 Glucose 96 mg/dL 70-105 Potassium 4.5 mmol/L 3.5-5.0 Sodium 140 mmol/L 135-145 Bilirubin Total 1.3 mg/dL 0.4-1.5 Total Protein 6.1 GM/DL Low 6.2-8.1 BUN/Creatinine Ratio 10.0 8-20 Creatinine 1.3 mg/dL 0.5-1.4 1 FASTING 2 Desirable: <150 Borderline High: 150-199 High: 200-499 Very High: >500 3 Desirable: <200 Borderline High: 200-239 High: >239 4 Low: <40 Desirable: 40-60 High: >60 5 Desirable: <100 Near Optimal: 100-129 Borderline High: 130-159 High: 160-189 Very High: >189 6 Because ethnic data is not always readily available, this report includes an eGFR for both -Americans and non- Americans. The National Kidney Disease Education Program (NKDEP) does not endorse the use of the MDRD equation for patients that are not between the ages of 18 and 70, are , have extremes of body size, muscle mass, or nutritional status, or are non- or non-. According to the National Kidney Foundation, irrespective of diagnosis, the stage of the disease is based on the level of kidney function: Stage Description GFR(mL/min/1.73 m(2)) 1 Kidney damage with normal or decreased GFR 90 2 Kidney damage with mild decrease in GFR 60-89 3 Moderate decrease in GFR 30-59 4 Severe decrease in GFR 15-29 5 Kidney failure <15 (or dialysis) 7 FASTING 8 Normal Range 180 to 914 Indeterminate Range 145 to 180 Deficient Range <145 9 Because ethnic data is not always readily available, this report includes an eGFR for both -Americans and non- Americans. The National Kidney Disease Education Program (NKDEP) does not endorse the use of the MDRD equation for patients that are not between the ages of 18 and 70, are , have extremes of body size, muscle mass, or nutritional status, or are non- or non-. According to the National Kidney Foundation, irrespective of diagnosis, the stage of the disease is based on the level of kidney function: Stage Description GFR(mL/min/1.73 m(2)) 1 Kidney damage with normal or decreased GFR 90 2 Kidney damage with mild decrease in GFR 60-89 3 Moderate decrease in GFR 30-59 4 Severe decrease in GFR 15-29 5 Kidney failure <15 (or dialysis) 10 Desirable: <150 Borderline High: 150-199 High: 200-499 Very High: >500 11 Desirable: <200 Borderline High: 200-239 High: >239 12 Low: <40 Desirable: 40-60 High: >60 13 Desirable: <100 Near Optimal: 100-129 Borderline High: 130-159 High: 160-189 Very High: >189 14 RESULT: No apparent monoclonal protein on serum electrophoresis. Test Performed by: [address] [id number] 15 Because ethnic data is not always readily available, this report includes an eGFR for both -Americans and non- Americans. The National Kidney Disease Education Program (NKDEP) does not endorse the use of the MDRD equation for patients that are not between the ages of 18 and 70, are , have extremes of body size, muscle mass, or nutritional status, or are non- or non-. According to the National Kid[employer] Foundation, irrespective of diagnosis, the stage of the disease is based on the level of kidney function: Stage Description GFR(mL/min/1.73 m(2)) 1 Kidney damage with normal or decreased GFR 90 2 Kidney damage with mild decrease in GFR 60-89 3 Moderate decrease in GFR 30-59 4 Severe decrease in GFR 15-29 5 Kidney failure <15 (or dialysis) 16 Not diagnostic. Supplemental testing by immunoblot has been ordered by reflex. Test Performed by: [facility] [place] [address] 17 No bands detected 18 No bands detected 19 Specific serologic response to B. burgdorferi infection is not detected, but cannot rule out early infection during which low or undetectable antibody levels to B. burgdorferi may be present. If clinically indicated, a new serum specimen should be submitted in 7-14 days. ADDITIONAL INFORMATION CDC criteria require >=5 bands for IgG or >=2 bands for IgM for the Immunoblot to be considered positive. Bands (e.g.,p41) may be detected in patients without Lyme disease, and patterns not meeting the CDC criteria should be interpreted with caution. Immunoblot should be ordered only on specimens that are positive or equivocal by a FDA-licensed Lyme disease antibody screening test (e.g., EIA). Test Performed by: [facility] [place] [address] 20 Because ethnic data is not always readily available, this report includes an eGFR for both -Americans and non- Americans. The National Kidney Disease Education Program (NKDEP) does not endorse the use of the MDRD equation for patients that are not between the ages of 18 and 70, are , have extremes of body size, muscle mass, or nutritional status, or are non- or non-. According to the National Kidney Foundation, irrespective of diagnosis, the stage of the disease is based on the level of kidney function: Stage Description GFR(mL/min/1.73 m(2)) 1 Kidney damage with normal or decreased GFR 90 2 Kidney damage with mild decrease in GFR 60-89 3 Moderate decrease in GFR 30-59 4 Severe decrease in GFR 15-29 5 Kidney failure <15 (or dialysis) 21 Because ethnic data is not always readily available, this report includes an eGFR for both -Americans and non- Americans. The National Kidney Disease Education Program (NKDEP) does not endorse the use of the MDRD equation for patients that are not between the ages of 18 and 70, are , have extremes of body size, muscle mass, or nutritional status, or are non- or non-. According to the National Kidney Foundation, irrespective of diagnosis, the stage of the disease is based on the level of kidney function: Stage Description GFR(mL/min/1.73 m(2)) 1 Kidney damage with normal or decreased GFR 90 2 Kidney damage with mild decrease in GFR 60-89 3 Moderate decrease in GFR 30-59 4 Severe decrease in GFR 15-29 5 Kidney failure <15 (or dialysis) 22 Normal Range 180 to 914 Indeterminate Range 145 to 180 Deficient Range <145 23 Because ethnic data is not always readily available, this report includes an eGFR for both -Americans and non- Americans. The National Kidney Disease Education Program (NKDEP) does not endorse the use of the MDRD equation for patients that are not between the ages of 18 and 70, are , have extremes of body size, muscle mass, or nutritional status, or are non- or non-. According to the National Kidney Foundation, irrespective of diagnosis, the stage of the disease is based on the level of kidney function: Stage Description GFR(mL/min/1.73 m(2)) 1 Kidney damage with normal or decreased GFR 90 2 Kidney damage with mild decrease in GFR 60-89 3 Moderate decrease in GFR 30-59 4 Severe decrease in GFR 15-29 5 Kidney failure <15 (or dialysis) 24 Desirable <150 Borderline high 150-199 High 200-499 Very High >500 25 Desirable <200 Borderline high 200-239 High >239 26 Low <40 Desirable: 40-60 High: >60 27 Desirable: <100 mg/dL Near Optimal: 100-129 mg/dL Borderline High: 130-159 mg/dL High: 160-189 mg/dL Very High: >189 mg/dL 28 >100 to <200 pg/mL: likely compensated congestive heart failure (CHF) 200 to 400 pg/mL: likely moderate CHF >400 pg/mL: likely moderate to severe CHF 29 FASTING cc pmd 30 FASTING cc pmd 31 Because ethnic data is not always readily available, this report includes an eGFR for both -Americans and non- Americans. The National Kidney Disease Education Program (NKDEP) does not endorse the use of the MDRD equation for patients that are not between the ages of 18 and 70, are , have extremes of body size, muscle mass, or nutritional status, or are non- or non-. According to the National Kidney Foundation, irrespective of diagnosis, the stage of the disease is based on the level of kidney function: Stage Description GFR(mL/min/1.73 m(2)) 1 Kidney damage with normal or decreased GFR 90 2 Kidney damage with mild decrease in GFR 60-89 3 Moderate decrease in GFR 30-59 4 Severe decrease in GFR 15-29 5 Kidney failure <15 (or dialysis) 32 Desirable <150 Borderline high 150-199 High 200-499 Very High >500 33 Desirable <200 Borderline high 200-239 High >239 34 Low <40 Desirable: 40-60 High: >60 35 Desirable: <100 mg/dL Near Optimal: 100-129 mg/dL Borderline High: 130-159 mg/dL High: 160-189 mg/dL Very High: >189 mg/dL 36 >100 to <200 pg/mL: likely compensated congestive heart failure (CHF) 200 to 400 pg/mL: likely moderate CHF >400 pg/mL: likely moderate to severe CHF 37 FASTING 38 Desirable <150 Borderline high 150-199 High 200-499 Very High >500 39 Desirable <200 Borderline high 200-239 High >239 40 Low <40 Desirable: 40-60 High: >60 41 Desirable: <100 mg/dL Near Optimal: 100-129 mg/dL Borderline High: 130-159 mg/dL High: 160-189 mg/dL Very High: >189 mg/dL 42 Because ethnic data is not always readily available, this report includes an eGFR for both -Americans and non- Americans. The National Kidney Disease Education Program (NKDEP) does not endorse the use of the MDRD equation for patients that are not between the ages of 18 and 70, are , have extremes of body size, muscle mass, or nutritional status, or are non- or non-. According to the National Kidney Foundation, irrespective of diagnosis, the stage of the disease is based on the level of kidney function: Stage Description GFR(mL/min/1.73 m(2)) 1 Kidney damage with normal or decreased GFR 90 2 Kidney damage with mild decrease in GFR 60-89 3 Moderate decrease in GFR 30-59 4 Severe decrease in GFR 15-29 5 Kidney failure <15 (or dialysis) 43 FASTING 44 PT IS FASTING 45 PT IS FASTING 46 Because ethnic data is not always readily available, this report includes an eGFR for both -Americans and non- Americans. The National Kidney Disease Education Program (NKDEP) does not endorse the use of the MDRD equation for patients that are not between the ages of 18 and 70, are , have extremes of body size, muscle mass, or nutritional status, or are non- or non-. According to the National Kidney Foundation, irrespective of diagnosis, the stage of the disease is based on the level of kidney function: Stage Description GFR(mL/min/1.73 m(2)) 1 Kidney damage with normal or decreased GFR 90 2 Kidney damage with mild decrease in GFR 60-89 3 Moderate decrease in GFR 30-59 4 Severe decrease in GFR 15-29 5 Kidney failure <15 (or dialysis) 47 Desirable <150 Borderline high 150-199 High 200-499 Very High >500 48 Desirable <200 Borderline high 200-239 High >239 49 Low <40 Desirable: 40-60 High: >60 50 Desirable: <100 mg/dL Near Optimal: 100-129 mg/dL Borderline High: 130-159 mg/dL High: 160-189 mg/dL Very High: >189 mg/dL 51 Because ethnic data is not always readily available, this report includes an eGFR for both -Americans and non- Americans. The National Kidney Disease Education Program (NKDEP) does not endorse the use of the MDRD equation for patients that are not between the ages of 18 and 70, are , have extremes of body size, muscle mass, or nutritional status, or are non- or non-. According to the National Kidney Foundation, irrespective of diagnosis, the stage of the disease is based on the level of kidney function: Stage Description GFR(mL/min/1.73 m(2)) 1 Kidney damage with normal or decreased GFR 90 2 Kidney damage with mild decrease in GFR 60-89 3 Moderate decrease in GFR 30-59 4 Severe decrease in GFR 15-29 5 Kidney failure <15 (or dialysis) 52 FASTING 53 Desirable <150 Borderline high 150-199 High 200-499 Very High >500 54 Desirable <200 Borderline high 200-239 High >239 55 Low <40 Desirable: 40-60 High: >60 56 Desirable <100 Near Optimal 100-129 Borderline high 130-159 High 160-189 Very High >189 57 Because ethnic data is not always readily available, this report includes an eGFR for both -Americans and non- Americans. The National Kidney Disease Education Program (NKDEP) does not endorse the use of the MDRD equation for patients that are not between the ages of 18 and 70, are , have extremes of body size, muscle mass, or nutritional status, or are non- or non-. According to the National Kidney Foundation, irrespective of diagnosis, the stage of the disease is based on the level of kidney function: Stage Description GFR(mL/min/1.73 m(2)) 1 Kidney damage with normal or decreased GFR 90 2 Kidney damage with mild decrease in GFR 60-89 3 Moderate decrease in GFR 30-59 4 Severe decrease in GFR 15-29 5 Kidney failure <15 (or dialysis) 58 Because ethnic data is not always readily available, this report includes an eGFR for both -Americans and non- Americans. The National Kidney Disease Education Program (NKDEP) does not endorse the use of the MDRD equation for patients that are not between the ages of 18 and 70, are , have extremes of body size, muscle mass, or nutritional status, or are non- or non-. According to the National Kidney Foundation, irrespective of diagnosis, the stage of the disease is based on the level of kidney function: Stage Description GFR(mL/min/1.73 m(2)) 1 Kidney damage with normal or decreased GFR 90 2 Kidney damage with mild decrease in GFR 60-89 3 Moderate decrease in GFR 30-59 4 Severe decrease in GFR 15-29 5 Kidney failure <15 (or dialysis) 59 Because ethnic data is not always readily available, this report includes an eGFR for both -Americans and non- Americans. The National Kidney Disease Education Program (NKDEP) does not endorse the use of the MDRD equation for patients that are not between the ages of 18 and 70, are , have extremes of body size, muscle mass, or nutritional status, or are non- or non-. According to the National Kidney Foundation, irrespective of diagnosis, the stage of the disease is based on the level of kidney function: Stage Description GFR(mL/min/1.73 m(2)) 1 Kidney damage with normal or decreased GFR 90 2 Kidney damage with mild decrease in GFR 60-89 3 Moderate decrease in GFR 30-59 4 Severe decrease in GFR 15-29 5 Kidney failure <15 (or dialysis) 60 Serologic response to B. burgdorferi infection is not detected, but cannot rule out early infection during which low or undetectable antibody levels to B. burgdorferi may be present. If clinically indicated, a new serum specimen should be submitted in 7-14 days. Test Performed by: [address] [address] Customer Resolution Specialist: Vimal Harrington III, M.D. 61 RUN DATE: 11/23/12 [facility] LIVE PAGE 1 RUN TIME: [address] [place] [address] Specimen Inquiry Name: GA GTZ SR : [address]: Rachid Pop MD Acct: [id number] Unit: [id number] AGE: 71 Location: ED Re11/18/12 SEX: M Status: DEP ER SPEC: [id number] ROBERTA: 11/18/[address]: Quita LIMON REQ: [id number] RECD: 11/18/12 STATUS: KEVIN FABIAN DR: [facility] Wetsley Connolly MD _ SOURCE: BLOOD,VENO SPDESC: ORDERED: Blood Cult Procedure Result Verified Site Aerobic Culture Bottle Final 11/23/12- 2155 ML No Growth Day 5 Anaerobic Culture Bottle Final 11/23/12- 2155 ML No Growth Day 5 END OF REPORT * ML=Testing performed at Main Lab DEPARTMENT OF PATHOLOGY, [address] [place], [place] [address] Jomar White M.D. Director [facility] Permit #[id number] 62 Reference Range and Interpretation: TnI (ng/mL) Interpretation Less Than 0.06 ng/mL Not supportive of diagnosis of [place] 0.06 - 0.50 ng/mL Indeterminate: suggest serial studies if clinically indicated. Greater than 0.5 ng/mL Consistent with diagnosis of [place] 63 Because ethnic data is not always readily available, this report includes an eGFR for both -Americans and non- Americans. The National Kidney Disease Education Program (NKDEP) does not endorse the use of the MDRD equation for patients that are not between the ages of 18 and 70, are , have extremes of body size, muscle mass, or nutritional status, or are non- or non-. According to the National Kidney Foundation, irrespective of diagnosis, the stage of the disease is based on the level of kidney function: Stage Description GFR(mL/min/1.73 m(2)) 1 Kidney damage with normal or decreased GFR 90 2 Kidney damage with mild decrease in GFR 60-89 3 Moderate decrease in GFR 30-59 4 Severe decrease in GFR 15-29 5 Kidney failure <15 (or dialysis) 64 RUN DATE: 11/20/12 [facility] LIVE PAGE 1 RUN TIME: 1026 [address] [place], [place] [address] Specimen Inquiry Name: GA GTZ SR : [address]: Rachid Pop MD Acct: [id number] Unit: [id number] AGE: 71 Location: ED Re11/18/12 SEX: M Status: DEP ER SPEC: [id number] ROBERTA: 11/18/12-2199 [facility] DR: Rachid Pop MD REQ: [id number] RECD: 11/18/12 STATUS: KEVIN FABIAN DR: Westley Connolly MD _ SOURCE: URINE SPDESC: ORDERED: Urine Culture Procedure Result Verified Site Urine Culture Final 11/20/12- 1026 ML No Growth Day 2 (<1,000 CFU/mL) END OF REPORT * ML=Testing performed at Main Lab DEPARTMENT OF PATHOLOGY, [facility] [address] [place], [place] [address] Jomar White M.D. Director [facility] Permit #[id number] 65 RUN DATE: 11/23/12 [facility] LIVE PAGE 1 RUN TIME: [address] [place] [address] Specimen Inquiry Name: GA GTZ SR : [address]: Rachid Pop MD Acct: [id number] Unit: [id number] AGE: 71 Location: ED Re11/18/12 SEX: M Status: DEP ER SPEC: [id number] ROBERTA: 11/18/12-2254 [facility] DR: Quita LIMON REQ: [id number] RECD: 11/18/12 STATUS: KEVIN FABIAN DR: [facility] Westley Connolly MD _ SOURCE: BLOOD,VENO SPDESC: ORDERED: Blood Cult Procedure Result Verified Site Aerobic Culture Bottle Final 11/23/12- 2301 ML No Growth Day 5 Anaerobic Culture Bottle Final 11/23/12- 2301 ML No Growth Day 5 END OF REPORT * ML=Testing performed at Main Lab DEPARTMENT OF PATHOLOGY, [address] [place] [address] Jomar White M.D. Director [facility] Permit #[id number] 66 HDL Interpretation: Undesirable: High Risk: Less than 40 MG/DL Desirable: Low Risk: Greater than 60 MG/DL 67 LDL Interpretation: Low Risk Optimal Level: LDL Less than 100 MG/DL Near or Above Optimal: LDL 100-129 MG/DL Borderline High Risk: LDL 130-159 MG/DL High Risk: LDL 160-189 MG/DL Very High Risk: LDL Greater than 189 MG/DL 68 Because ethnic data is not always readily available, this report includes an eGFR for both -Americans and non- Americans. The National Kidney Disease Education Program (NKDEP) does not endorse the use of the MDRD equation for patients that are not between the ages of 18 and 70, are , have extremes of body size, muscle mass, or nutritional status, or are non- or non-. According to the National Kidney Foundation, irrespective of diagnosis, the stage of the disease is based on the level of kidney function: Stage Description GFR(mL/min/1.73 m(2)) 1 Kidney damage with normal or decreased GFR 90 2 Kidney damage with mild decrease in GFR 60-89 3 Moderate decrease in GFR 30-59 4 Severe decrease in GFR 15-29 5 Kidney failure <15 (or dialysis) 69 Anion gap measurement may be of limited value in the presence of any alkalosis, especially in a combined acid base disorder. . 70 A metabolite of Naproxen, O-desmethylnaproxen, has been shown to interfere with the [place] method for measuring total bilirubin. Samples from patients who have taken Naproxen have shown spurious elevation in total bilirubin levels. 71 Because ethnic data is not always readily available, this report includes an eGFR for both -Americans and non- Americans. The National Kidney Disease Education Program (NKDEP) does not endorse the use of the MDRD equation for patients that are not between the ages of 18 and 70, are , have extremes of body size, muscle mass, or nutritional status, or are non- or non-. According to the National Kidney Foundation, irrespective of diagnosis, the stage of the disease is based on the level of kidney function: Stage Description GFR(mL/min/1.73 m(2)) 1 Kidney damage with normal or decreased GFR 90 2 Kidney damage with mild decrease in GFR 60-89 3 Moderate decrease in GFR 30-59 4 Severe decrease in GFR 15-29 5 Kidney failure <15 (or dialysis) 72 CHOLESTEROL INTERPRETATION: Desirable: Less than 200 MG/DL Borderline-High Risk: 200-239 MG/DL High-Risk: 240 MG/DL and over 73 HDL INTERPRETATION: Undesirable: High Risk: Less than 40 MG/DL Desirable: Low Risk: Greater than 60 MG/DL 74 LDL INTERPRETATION: Low Risk Optimal Level: LDL Less than 100 MG/DL Near or Above Optimal: LDL 100-129 MG/DL Borderline High Risk: LDL 130-159 MG/DL High Risk: LDL 160-189 MG/DL Very High Risk: LDL Greater than 189 MG/DL 75 Anion gap measurement may be of limited value in the presence of any alkalosis, especially in a combined acid base disorder. . 76 A metabolite of Naproxen, O-desmethylnaproxen, has been shown to interfere with the [place] method for measuring total bilirubin. Samples from patients who have taken Naproxen have shown spurious elevation in total bilirubin levels. 77 Because ethnic data is not always readily available, this report includes an eGFR for both -Americans and non- Americans. The National Kidney Disease Education Program (NKDEP) does not endorse the use of the MDRD equation for patients that are not between the ages of 18 and 70, are , have extremes of body size, muscle mass, or nutritional status, or are non- or non-. According to the National Kidney Foundation, irrespective of diagnosis, the stage of the disease is based on the level of kidney function: Stage Description GFR(mL/min/1.73 m(2)) 1 Kidney damage with normal or decreased GFR 90 2 Kidney damage with mild decrease in GFR 60-89 3 Moderate decrease in GFR 30-59 4 Severe decrease in GFR 15-29 5 Kidney failure <15 (or dialysis) 78 CHOLESTEROL INTERPRETATION: Desirable: Less than 200 MG/DL Borderline-High Risk: 200-239 MG/DL High-Risk: 240 MG/DL and over 79 HDL INTERPRETATION: Undesirable: High Risk: Less than 40 MG/DL Desirable: Low Risk: Greater than 60 MG/DL 80 LDL INTERPRETATION: Low Risk Optimal Level: LDL Less than 100 MG/DL Near or Above Optimal: LDL 100-129 MG/DL Borderline High Risk: LDL 130-159 MG/DL High Risk: LDL 160-189 MG/DL Very High Risk: LDL Greater than 189 MG/DL 81 NORMAL RANGE MALES 1 - 20 NORMALLY MENSTRUATING FEMALES - Follicular Phase 3 - 9 - Mid-Cycle Peak 4 - 23 - Luteal Phase 1 - 6 POSTMENOPAUSAL FEMALES 16 - 114 . 82 NORMAL RANGE MALES 2 - 12 NORMALLY MENSTRUATING FEMALES - Follicular Phase 1 - 18 - Mid-Cycle Peak 24 - 105 - Luteal Phase 0.6 - 20 POSTMENOPAUSAL FEMALES 15 - 62 . 83 Anion gap measurement may be of limited value in the presence of any alkalosis, especially in a combined acid base disorder. . 84 Note change in reference range as of 01/17/08. The change was based on recommendations from the [place] [employer]. 85 Please note change in reference range effective 07 . 86 Because ethnic data is not always readily available, this report includes an eGFR for both -Americans and non- Americans. The National Kidney Disease Education Program (NKDEP) does not endorse the use of the MDRD equation for patients that are not between the ages of 18 and 70, are , have extremes of body size, muscle mass, or nutritional status, or are non- or non-. According to the National Kidney Foundation, irrespective of diagnosis, the stage of the disease is based on the level of kidney function: Stage Description GFR(mL/min/1.73 m(2)) 1 Kidney damage with normal or decreased GFR 90 2 Kidney damage with mild decrease in GFR 60-89 3 Moderate decrease in GFR 30-59 4 Severe decrease in GFR 15-29 5 Kidney failure <15 (or dialysis) 87 CHOLESTEROL INTERPRETATION: Desirable: Less than 200 MG/DL Borderline-High Risk: 200-239 MG/DL High-Risk: 240 MG/DL and over 88 HDL INTERPRETATION: Undesirable: High Risk: Less than 40 MG/DL Desirable: Low Risk: Greater than 60 MG/DL 89 LDL INTERPRETATION: Low Risk Optimal Level: LDL Less than 100 MG/DL Near or Above Optimal: LDL 100-129 MG/DL Borderline High Risk: LDL 130-159 MG/DL High Risk: LDL 160-189 MG/DL Very High Risk: LDL Greater than 189 MG/DL 90 CHOLESTEROL INTERPRETATION: Desirable: Less than 200 MG/DL Borderline-High Risk: 200-239 MG/DL High-Risk: 240 MG/DL and over 91 HDL INTERPRETATION: Undesirable: High Risk: Less than 40 MG/DL Desirable: Low Risk: Greater than 60 MG/DL 92 LDL INTERPRETATION: Low Risk Optimal Level: LDL Less than 100 MG/DL Near or Above Optimal: LDL 100-129 MG/DL Borderline High Risk: LDL 130-159 MG/DL High Risk: LDL 160-189 MG/DL Very High Risk: LDL Greater than 189 MG/DL 93 Anion gap measurement may be of limited value in the presence of any alkalosis, especially in a combined acid base disorder. . 94 Note change in reference range as of 01/17/08. The change was based on recommendations from the [place] [employer]. 95 Please note change in reference range effective 07 . 96 A metabolite of Naproxen, O-desmethylnaproxen, has been shown to interfere with the [place] method for measuring total bilirubin. Samples from patients who have taken Naproxen have shown spurious elevation in total bilirubin levels. 97 Because ethnic data is not always readily available, this report includes an eGFR for both -Americans and non- Americans. The National Kidney Disease Education Program (NKDEP) does not endorse the use of the MDRD equation for patients that are not between the ages of 18 and 70, are , have extremes of body size, muscle mass, or nutritional status, or are non- or non-. According to the National Kidney Foundation, irrespective of diagnosis, the stage of the disease is based on the level of kidney function: Stage Description GFR(mL/min/1.73 m(2)) 1 Kidney damage with normal or decreased GFR 90 2 Kidney damage with mild decrease in GFR 60-89 3 Moderate decrease in GFR 30-59 4 Severe decrease in GFR 15-29 5 Kidney failure <15 (or dialysis) 98 * SERUM LEVELS OF PSA MEASURED USING THE [employer] by [employer] ACCESS HYBRITECH IMMUNOASSAY SHOULD NOT BE INTERPRETED ABSOLUTE EVIDENCE OF THE PRESENCE OR ABSENCE OF DISEASE. THE PSA VALUE SHOULD BE USED IN CONJUNCTION WITH OTHER PERTINENT CLINICAL DIAGNOSTIC PROCEDURES. 99 A metabolite of Naproxen, O-desmethylnaproxen, has been shown to interfere with the [place] method for measuring total bilirubin. Samples from patients who have taken Naproxen have shown spurious elevation in total bilirubin levels. 100 Anion gap measurement may be of limited value in the presence of any alkalosis, especially in a combined acid base disorder. . 101 Note change in reference range as of 01/17/08. The change was based on recommendations from the [place] [employer]. 102 Please note change in reference range effective 07 . 103 Because ethnic data is not always readily available, this report includes an eGFR for both -Americans and non- Americans. The National Kidney Disease Education Program (NKDEP) does not endorse the use of the MDRD equation for patients that are not between the ages of 18 and 70, are , have extremes of body size, muscle mass, or nutritional status, or are non- or non-. According to the National Kidney Foundation, irrespective of diagnosis, the stage of the disease is based on the level of kidney function: Stage Description GFR(mL/min/1.73 m(2)) 1 Kidney damage with normal or decreased GFR 90 2 Kidney damage with mild decrease in GFR 60-89 3 Moderate decrease in GFR 30-59 4 Severe decrease in GFR 15-29 5 Kidney failure <15 (or dialysis) 104 CHOLESTEROL INTERPRETATION: Desirable: Less than 200 MG/DL Borderline-High Risk: 200-239 MG/DL High-Risk: 240 MG/DL and over 105 HDL INTERPRETATION: Undesirable: High Risk: Less than 40 MG/DL Desirable: Low Risk: Greater than 60 MG/DL 106 LDL INTERPRETATION: Low Risk Optimal Level: LDL Less than 100 MG/DL Near or Above Optimal: LDL 100-129 MG/DL Borderline High Risk: LDL 130-159 MG/DL High Risk: LDL 160-189 MG/DL Very High Risk: LDL Greater than 189 MG/DL 107 * SERUM LEVELS OF PSA MEASURED USING THE [employer] by [employer] ACCESS HYBRITECH IMMUNOASSAY SHOULD NOT BE INTERPRETED ABSOLUTE EVIDENCE OF THE PRESENCE OR ABSENCE OF DISEASE. THE PSA VALUE SHOULD BE USED IN CONJUNCTION WITH OTHER PERTINENT CLINICAL DIAGNOSTIC PROCEDURES. 108 CHOLESTEROL INTERPRETATION: Desirable: Less than 200 MG/DL Borderline-High Risk: 200-239 MG/DL High-Risk: 240 MG/DL and over 109 HDL INTERPRETATION: Undesirable: High Risk: Less than 40 MG/DL Desirable: Low Risk: Greater than 60 MG/DL 110 LDL INTERPRETATION: Low Risk Optimal Level: LDL Less than 100 MG/DL Near or Above Optimal: LDL 100-129 MG/DL Borderline High Risk: LDL 130-159 MG/DL High Risk: LDL 160-189 MG/DL Very High Risk: LDL Greater than 189 MG/DL 111 Anion gap measurement may be of limited value in the presence of any alkalosis, especially in a combined acid base disorder. . 112 Note change in reference range as of 01/17/08. The change was based on recommendations from the [employer]. 113 Please note change in reference range effective 07 . 114 Anion gap measurement may be of limited value in the presence of any alkalosis, especially in a combined acid base disorder. . 115 Classification: Desirable . 116 Classification: Low . 117 CALCULATED LDL APPROXIMATES THE VALUE OF A DIRECT LDL MEASUREMENT. Classification: Optimal Level . 118 PATIENT MAY HAVE RESULTS PER DOCTOR'S AUTHORIZATION. Questions regarding this report should be directed to your doctor. 119 Anion gap measurement may be of limited value in the presence of any alkalosis, especially in a combined acid base disorder. . 120 Classification: Desirable . 121 Classification: Low . 122 CALCULATED LDL APPROXIMATES THE VALUE OF A DIRECT LDL MEASUREMENT. Classification: Optimal Level . 123 FASTING 124 Anion gap measurement may be of limited value in the presence of any alkalosis, especially in a combined acid base disorder. . 125 Classification: Desirable . 126 Classification: Low . 127 CALCULATED LDL APPROXIMATES THE VALUE OF A DIRECT LDL MEASUREMENT. Classification: Optimal Level . 128 Classification: Desirable . 129 Classification: Low . 130 CALCULATED LDL APPROXIMATES THE VALUE OF A DIRECT LDL MEASUREMENT. Classification: Optimal Level . 131 Anion gap measurement may be of limited value in the presence of any alkalosis, especially in a combined acid base disorder. . Procedures Date Code Description Status 10/18/2018 50328 ECHO Transthoracic, Real-Time 2D With Doppler And Color Completed Flow 10/18/2018 31002 ECHO Transthoracic, Real-Time 2D With Doppler And Color Completed Flow 10/16/2018 47465 EKG Tracing & Interpretation Completed 10/03/2018 [id number] Mammogram Completed 10/01/2018 93560 Pace Maker Eval W/Iterative Adjment Dual Lead Completed 10/01/2018 97987 Pace Maker Eval W/Iterative Adjment Dual Lead Completed 03/01/2018 [id number] Mammogram Completed 02/22/2018 37046 ECHO Stress Test Incl Perf Contiuous ekg Monitoring Completed W/Phys Superv 02/15/2018 12973 Pace Maker Eval W/Iterative Adjment Dual Lead Completed 02/15/2018 33914 Pace Maker Eval W/Iterative Adjment Dual Lead Completed 01/19/2018 51922 ECHO Transthoracic, Real-Time 2D With Doppler And Color Completed Flow 01/19/2018 55392 ECHO Transthoracic, Real-Time 2D With Doppler And Color Completed Flow 01/17/2018 45102 EKG Tracing & Interpretation Completed 12/08/2017 96326 Pace Maker Eval W/Iterative Adjment Dual Lead Completed 12/08/2017 62746 Pace Maker Eval W/Iterative Adjment Dual Lead Completed 11/01/2017 32807 Pace Maker Eval W/Iterative Adjment Dual Lead Completed 11/01/2017 49533 Pace Maker Eval W/Iterative Adjment Dual Lead Completed 10/20/2017 81579 EKG Tracing & Interpretation Completed 02/07/2017 79986 Pace Maker Eval W/Iterative Adjment Dual Lead Completed 12/19/2016 14530 Pace Maker Eval W/Iterative Adjment Dual Lead Completed 12/04/2016 03845 Holter Monitor Review (24 hr)dr review & interp only Completed 11/24/2016 30088 ECG Monitor/Recording W/Visual Superimposition Scanning Completed 11/08/2016 60203 Pace Maker Eval W/Iterative Adjment Dual Lead Completed 11/08/2016 53620 EKG Tracing & Interpretation Completed 10/25/2016 98977 Pace Maker Eval W/Iterative Adjment Dual Lead Completed 02/10/2016 35139 ECHO Stress Test Incl Perf Contiuous ekg Monitoring Completed W/Phys Superv 02/04/2016 54511 Color Flow Doppler/Interp & Reprt Completed 02/04/2016 94832 Echocardiography, Transesophageal, Real Time W/Image 2D Completed W/W/O M-M 02/04/2016 54897 Pulse Wave/Continuous-Interp.RPT Completed 01/01/2016 88673 Treadmill Interp/Report Only Completed 01/01/2016 02985 Stress Test Supervsn W/Out I/R Completed 12/23/2015 36657 Pace Maker Eval W/Iterative Adjment Dual Lead Completed 12/10/2015 00326 ECHO Transthoracic, Real-Time 2D With Doppler And Color Completed Flow 11/16/2015 13473 EKG Tracing & Interpretation Completed 03/12/2015 63570 EKG Tracing & Interpretation Completed 03/04/2015 56910 Myocardial Perfusion Imaging Tomographic (Spect) Completed Multiple Studies 03/04/2015 79995 Stress Test Completed 01/22/2015 81394 ECHO Stress Test Incl Perf Contiuous ekg Monitoring Completed W/Phys Superv 01/05/2015 10195 ECHO Transthoracic, Real-Time 2D With Doppler And Color Completed Flow 01/02/2015 79541 EKG Tracing & Interpretation Completed 11/27/2013 65377 ECHO Transthoracic, Real-Time 2D With Doppler And Color Completed Flow 11/27/2013 46799 EKG Tracing & Interpretation Completed 11/21/2013 77418 Interrogation Device Eval In Person W/DR Completed Analysis,Single,Dual,Mul 05/09/2013 78017 Pace Maker Eval W/Iterative Adjment Dual Lead Completed 11/27/2012 15561 ECHO Transthoracic, Real-Time 2D With Doppler And Color Completed Flow 11/21/2012 29057 Pace Maker Eval W/Iterative Adjment Dual Lead Completed 10/17/2012 30702 EKG Tracing & Interpretation Completed 05/08/2012 79172 Pace Maker Eval W/Iterative Adjment Dual Lead Completed 01/19/2012 05201 Pace Maker Eval W/Iterative Adjment Dual Lead Completed 01/16/2012 81160 EKG Tracing & Interpretation Completed 10/04/2011 43060 Treadmill Interp/Report Only Completed 10/04/2011 63325 Stress Test Supervsn W/Out I/R Completed 09/27/2011 66633 Interrogation Device Eval In Person W/DR Completed Analysis,Single,Dual,Mul 09/23/2011 30778 ECHO Stress Test Incl Perf Contiuous ekg Monitoring Completed W/Phys Superv 09/22/2011 78181 EKG Tracing & Interpretation Completed 05/12/2011 16410 Interrogation Device Eval In Person W/DR Completed Analysis,Single,Dual,Mul 11/18/2010 49415 Interrogation Device Eval In Person W/DR Completed Analysis,Single,Dual,Mul 11/03/2010 98951 EKG Tracing & Interpretation Completed 05/07/2010 74887 Pace Maker Eval W/Iterative Adjment Dual Lead Completed 02/10/2010 09136 EKG Tracing & Interpretation Completed 12/24/2009 46376 EKG Tracing & Interpretation Completed 11/12/2009 66323 Pace Maker Eval W/Iterative Adjment Dual Lead Completed 05/20/2009 72455 EKG Tracing & Interpretation Completed 05/14/2009 66935 Pace Maker Eval W/Iterative Adjment Dual Lead Completed 10/23/2008 65785 Pace Maker Eval W/Iterative Adjment Dual Lead Completed 10/02/2008 99081 EKG Tracing & Interpretation Completed 05/15/2008 84036 Reprogram Pacemaker (Dual) Completed 02/15/2008 04596 EKG Tracing & Interpretation Completed 11/22/2007 28330 Pacemaker Check/Dual [place]/Office Completed 11/22/2007 56142 Pacemaker Check/Dual [place]/Office Completed 11/22/2007 43071 Pacemaker Check/Dual [place]/Office Completed 10/12/2007 38209 EKG Tracing & Interpretation Completed 10/12/2007 14209 EKG Tracing & Interpretation Completed 10/03/2007 05254 ECHO/Stress Completed 10/03/2007 80003 EKG Tracing & Interpretation Completed 10/03/2007 43116 ECHO/Stress Completed 10/03/2007 88227 ECHO/Stress Completed 10/03/2007 77685 Stress Test Completed 10/03/2007 04233 Stress Test Completed 05/24/2007 51699 Reprogram Pacemaker (Dual) Completed 05/24/2007 14795 Pulse Doppler & Continuous Wave Completed 05/24/2007 10339 Pulse Doppler & Continuous Wave Completed 05/24/2007 90226 EKG Tracing & Interpretation Completed 04/03/2007 77617 Pacemaker Check- [place] Dual Completed 04/03/2007 09694 Pacemaker Check- [place] Dual Completed 03/20/2007 62798 Pacemaker Check- [place] Dual Completed 02/01/2007 76920 Single Chamber [place] Completed 12/07/2006 13959 Pacemaker Check- [place] Dual Completed 11/24/2006 45751 Reprogram Pacemaker (Dual) Completed 11/24/2006 50324 Reprogram Pacemaker (Dual) Completed 10/13/2006 07089 Pacemaker Check- [place] Dual Completed 09/29/2006 03259 EKG Tracing & Interpretation Completed 09/29/2006 45571 EKG Tracing & Interpretation Completed 08/17/2006 02510 Pacemaker Check- [place] Dual Completed 07/27/2006 [id number] Colonoscopy Completed 06/22/2006 94982 Pacemaker Check- [place] Dual Completed 05/12/2006 04822 Reprogram Pacemaker (Dual) Completed 05/11/2006 03225 EKG Tracing & Interpretation Completed 01/23/2006 74403 Reprogram Pacemaker (Dual) Completed 01/13/2006 10494 Reprogram Pacemaker (Dual) Completed 01/13/2006 64264 Reprogram Pacemaker (Dual) Completed 2005 17199 EKG Tracing & Interpretation Completed 2005 56463 EKG Tracing & Interpretation Completed 12/09/2005 18273 ECHO/Stress Completed 12/09/2005 30739 Stress Test Completed 11/30/2005 32433 Echocardiogram Completed 11/30/2005 71072 Echocardiogram Completed 11/30/2005 81111 Pulse Doppler & Continuous Wave Completed 11/30/2005 96260 Color Doppler Completed 11/30/2005 04357 Color Doppler Completed 11/24/2005 59189 EKG Tracing & Interpretation Completed 11/24/2005 38685 EKG Tracing & Interpretation Completed 05/12/2005 86686 EKG Tracing & Interpretation Completed 05/13/2004 06855 EKG Tracing & Interpretation Completed 11/06/2003 44271 EKG Tracing & Interpretation Completed 05/20/2003 52415 Transesophageal Echocardiogram Completed 05/07/2003 80710 ECHO/Stress Completed 05/07/2003 94836 Stress Test Completed 05/06/2003 31566 Color Doppler Completed 05/06/2003 92264 Pulse Doppler & Continuous Wave Completed 05/06/2003 30616 Echocardiogram Completed Encounters Type Date Location Provider Dx Diagnosis Office Visit 10/16/2018 [facility] Karson Monge I44.2 Atrioventricular block, 9:40a Danielle Patten complete Z95.0 Presence of cardiac pacemaker I48.2 Chronic atrial fibrillation I11.9 Hypertensive heart disease without heart failure I35.0 Nonrheumatic aortic (valve) stenosis E78.00 Pure hypercholesterolemia, unspecified I34.0 Nonrheumatic mitral (valve) insufficiency Office Visit 10/05/2018 11:20a [facility] Internal Keo Henson N62 [facility] - Deonte Rangel M.D. breast D50.9 Iron deficiency anemia, unspecified Office Visit 02/28/2018 9:00a [facility] Internal Westley Yoder Z00.01 Encounter for Andrey Connolly M.D.,[facility] general adult Suite R medical exam w abnormal findings Z95.2 Presence of prosthetic heart valve I48.2 Chronic atrial fibrillation D50.8 Other iron deficiency anemias N40.1 Benign prostatic hyperplasia with lower urinary tract symp D48.62 Neoplasm of uncertain behavior of left breast Office Visit 01/17/2018 [place] Karson Monge I44.2 Atrioventricular 11:20a Cardiology Danielle Patten block, complete I48.2 Chronic atrial fibrillation E78.00 Pure hypercholesterolemia, unspecified Z95.2 Presence of prosthetic heart valve Office Visit 11/09/2017 9:30a [facility] Valeria SJosefina I71.2 Thoracic aortic Of [facility] Sean Owusu.Frank aneurysm, without rupture 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 I44.2 Atrioventricular block, complete Z95.2 Presence of prosthetic heart valve I48.0 Paroxysmal atrial fibrillation Office Visit 10/20/2017 2:20p [facility] Karson Monge I71.2 Thoracic aortic Of [facility] Danielle Patten aneurysm, without rupture 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 I44.2 Atrioventricular block, complete Z95.2 Presence of prosthetic heart valve I87.2 Venous insufficiency (chronic) (peripheral) Office Visit 10/16/2017 9:40a [facility] Internal Westley Yoder D50.8 Other iron Andrey Connolly M.D.,[facility] deficiency Suite R anemias I71.2 Thoracic aortic aneurysm, without rupture R60.1 Generalized edema Office Visit 02/13/2017 9:30a [facility] Internal Westley Yoder Z00.01 Encounter for Andrey Connolly M.D.,[facility] general adult Suite R medical exam w abnormal findings I71.2 Thoracic aortic aneurysm, without rupture N40.1 Benign prostatic hyperplasia with lower urinary tract symp 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 Office Visit 12/08/2016 [facility] Internal Westley Yoder Z01.810 Encounter for 3:40p Andrey Connolly M.D.,[facility] preprocedural Suite R cardiovascular examination 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, bilateral I71.2 Thoracic aortic aneurysm, without rupture N40.1 Benign prostatic hyperplasia with lower urinary tract symp Office Visit 11/08/2016 3:40p [facility] Karson Monge I71.2 Thoracic aortic Danielle Patten aneurysm, without rupture I34.0 Nonrheumatic mitral (valve) insufficiency I44.2 Atrioventricular block, complete I10 Essential (primary) hypertension I42.1 Obstructive hypertrophic cardiomyopathy I48.3 Typical atrial flutter R06.00 Dyspnea, unspecified Z95.0 Presence of cardiac pacemaker Office Visit 03/14/2016 1:30p [facility] Sima Dudley, I34.0 Nonrheumatic mitral PA (valve) insufficiency I10 Essential (primary) hypertension I71.2 Thoracic aortic aneurysm, without rupture Office Visit 02/12/2016 11:40a [facility] Internal Westley Yoder Z00.01 Encounter for Andrey Connolly M.D.,[facility] general adult Suite R medical exam w abnormal findings I35.2 Nonrheumatic aortic (valve) stenosis with insufficiency I71.2 Thoracic aortic aneurysm, without rupture N40.1 Enlarged prostate with lower urinary tract symptoms G47.8 Other sleep disorders Z23 Encounter for immunization Office Visit 02/10/2016 [place] Karson Monge I44.2 Atrioventricular 9:30a Cardiology Danielle Patten block, complete R06.00 Dyspnea, unspecified I34.0 Nonrheumatic mitral (valve) insufficiency I35.0 Nonrheumatic aortic (valve) stenosis Office Visit 12/22/2015 11:00a [facility] Nurse Visit cc I10 Essential (primary) hypertension Office Visit 11/16/2015 1:40p [facility] Karson Monge I71.2 Thoracic aortic Danielle Patten aneurysm, without rupture I10 Essential (primary) hypertension R06.00 Dyspnea, unspecified I34.0 Nonrheumatic mitral (valve) insufficiency Z95.0 Presence of cardiac pacemaker Office Visit 03/12/2015 3:10p [facility] Karson Monge I71.2 Thoracic aortic Danielle Patten aneurysm, without rupture I10 Essential (primary) hypertension I34.0 Nonrheumatic mitral (valve) insufficiency Office Visit 02/19/2015 10:30a [facility] Internal Westley Yoder Z00.01 Encounter for Andrey Connolly M.D.,[facility] general adult Suite R medical exam w abnormal findings I71.2 Thoracic aortic aneurysm, without rupture N64.4 Mastodynia N40.1 Enlarged prostate with lower urinary tract symptoms 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 Z23 Encounter for immunization Office Visit 01/22/2015 8:30a [facility] Karson Monge 424.0 Mitral Valve Danielle Patten Disorder 424.1 Aortic Valve Disorder 425.11 Hypertrophic Obstructive Cardiomyopathy 794.31 Electrocardiogram (ECG) (EKG) Abnormal 401.9 Hypertension Unspec Office Visit 01/02/2015 3:40p [facility] Karson Monge 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.0 Mitral Valve Disorder 424.1 Aortic Valve Disorder 327.23 Obstructive Sleep Apnea Adult & Pediatric 785.2 Murmur Cardiac Undiagnosed Office Visit 02/18/2014 10:50a [facility] Internal Westley Yoder V70.0 Examination Andrey Connolly M.D.,[facility] 600.00 Hypertrophy Prostate W/O Urinary Obstruction & Other Luts 607.84 Impotence Organic Origin 493.00 Asthma Extrinsic Unspecified Office Visit 11/27/2013 11:20a [facility] Karson Monge 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 Leg Office Visit 02/01/2013 9:20a [facility] Internal Westley Yoder 441.2 Aneurysm Medicine - Deonte Connolly M.D.,[facility] Thoracic W/O Rupture 607.84 Impotence Organic Origin 493.00 Asthma Extrinsic Unspecified 414.01 Coronary Atherosclerosis [place] 550.90 Hernia Inguinal W/O Obstruct Or Gangrene Unilateral Unspec Office Visit 11/22/2012 12:10p [facility] Internal Westley Yoder 482.9 Pneumonia Due To Medicine - Deonte Connolly M.D.,[facility] Bacterial Infection Unspec Office Visit 10/17/2012 9:40a [facility] 427.81 Sinoatrial Node Kevyn Patten M.D. Dysfunction 426.0 Atrioventricular Block Complete 414.01 Coronary Atherosclerosis [place] 424.1 Aortic Valve Disorder Office Visit 03/01/2012 4:00p [facility] Internal Westley Yoder V70.0 Examination [facility] Danielle Connolly,[facility] 414.01 Coronary Atherosclerosis [place] 607.84 Impotence Organic Origin 493.00 Asthma Extrinsic Unspecified v06.1 Zwswxqinwa-Smzvxyr-Ovjjfiqq Combined (DTaP) Office Visit 01/16/2012 10:00a [place] Kevyn Monge 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 Atherosclerosis [place] 786.50 Pain Chest Unspec V45.01 Cardiac Pacemaker In Situ Postsurgical Office Visit 09/23/2011 [facility] 414.01 Coronary 11:30a Kevyn Patten M.D. Atherosclerosis [place] 424.1 Aortic Valve Disorder 786.50 Pain Chest Unspec Office Visit 09/22/2011 [place] 414.01 Coronary 10:00a Kevyn Patten M.D. Atherosclerosis [place] 786.50 Pain Chest Unspec 424.1 Aortic Valve Disorder Office Visit 01/13/2011 10:10a DO Not Use Bianca Yoder V70.0 Examination AT [place] Connolly M.D.,[facility] General Medical Routine AT Health Care Facility 414.01 Coronary Atherosclerosis [place] V45.01 Cardiac Pacemaker In Situ Postsurgical 790.21 Impaired Fasting Glucose 607.84 Impotence Organic Origin 493.00 Asthma Extrinsic Unspecified 789.31 Swelling Mass Or Lump Abdominal/Pelvic RT Upper Quadrant Office 11/03/2010 [facility] 272.0 Hypercholesterolemia Pure Visit 3:10p Kevyn Patten M.D. 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 426.0 Atrioventricular Block Complete V45.01 Cardiac Pacemaker In Situ Postsurgical 414.01 Coronary Atherosclerosis [place] Office Visit 09/30/2009 DO Not Use Wire Machine Operator Westley Yoder 717.1 Derangement Anterior 3:00p AT [place] Miramontes M.D.,[facility] Office Visit 05/20/2009 Tg Monge 426.0 Atrioventricular 3:20p Kevyn Patten M.D. 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 414.01 Coronary Atherosclerosis [place] 401.1 Hypertension Benign Office Visit 10/01/2008 1:30p DO Not Use Wire Machine Operator Melly Gandhi PA 401.1 Hypertension AT [facility] Benign 426.0 Atrioventricular Block Complete 414.01 Coronary Atherosclerosis [place] V45.01 Cardiac Pacemaker In Situ Postsurgical Office Visit 03/07/2008 11:00a DO Not Use Wire Machine Operator Westley Yoder 441.4 Aneurysm AT Angela Connolly M.D.,FACP Abdominal W/O Rupture 441.2 Aneurysm Thoracic W/O Rupture 790.21 Impaired Fasting Glucose 414.01 Coronary Atherosclerosis [place] 401.1 Hypertension Benign 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 Block Complete 414.01 Coronary Atherosclerosis [place] 401.1 Hypertension Benign 272.0 Hypercholesterolemia Pure Office Visit 10/12/2007 Tg [facility] 426.0 Atrioventricular 2:40p Kevyn Patten M.D. Block Complete 414.01 Coronary Atherosclerosis [place] 401.1 Hypertension Benign 272.0 Hypercholesterolemia Pure Office Visit 10/03/2007 Tg Monge 426.0 Atrioventricular 8:00a Kevyn Patten M.D. Block Complete 414.01 Coronary Atherosclerosis [place] 401.1 Hypertension Benign Office Visit 10/03/2007 Tg Monge 426.0 Atrioventricular 9:30a Kevyn Patten M.D. Block Complete 414.01 Coronary Atherosclerosis [place] 401.1 Hypertension Benign Office Visit 05/24/2007 Tg Monge 426.0 Atrioventricular 10:20a Kevyn Patten M.D. Block Complete 414.01 Coronary Atherosclerosis [place] 401.1 Hypertension Benign 272.0 Hypercholesterolemia Pure Office Visit 09/29/2006 Tg Monge 414.01 Coronary 11:20a Kevyn Patten M.D. Atherosclerosis [place] 401.1 Hypertension Benign 272.0 Hypercholesterolemia Pure Office Visit 05/11/2006 Tg [facility] 426.12 Atrioventricular 2:20p Kevyn Patten M.D. Block Mobitz Type II 401.1 Hypertension Benign 272.0 Hypercholesterolemia Pure Office Visit 02/13/2006 Tg Monge 414.01 Coronary 3:20p Cardiology Danielle Patten Atherosclerosis [place] 426.13 Atrioventricular Block Other Second Degree 427.81 Sinoatrial Node Dysfunction 424.0 Mitral Valve Disorder Office Visit 2005 [place] Karson Monge 414.01 Coronary 8:40a Cardiology Danielle Patten Atherosclerosis [place] 426.12 Atrioventricular Block [place] Type II 401.0 Hypertension Malignant Office Visit 12/09/2005 [place] Karson Monge 786.09 Dyspnea & 11:00a Kevyn Patten M.D. Respiratory Abnormalities Other 414.01 Coronary Atherosclerosis [place] 426.3 Left Bundle Branch Block Other Office Visit 11/24/2005 9:40a [facility] Karson Monge 785.2 Murmur Cardiac Danielle Patten Undiagnosed 796.3 Blood Pressure Reading Low Nonspecified 401.1 Hypertension Benign 394.1 Rheumatic Mitral Insufficiency Office Visit 05/12/2005 2:00p [facility] Karson Monge 785.2 Murmur Cardiac Danielle Patten Undiagnosed 272.0 Hypercholesterolemia Pure 401.1 Hypertension Benign Office Visit 05/13/2004 [place] Karson Monge 440.0 Atherosclerosis Aorta 3:00p Kevyn Patten M.D. 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.0 Mitral Valve Disorder Office Visit 11/06/2003 1:40p [facility] Karson Monge 441.2 Aneurysm Danielle Patten Thoracic W/O Rupture 401.1 Hypertension Benign Office Visit 05/07/2003 9:20a [facility] Karson Monge 441.2 Aneurysm Danielle Patten Thoracic W/O Rupture 436 Cerebrovascular Disease Acute Ill-Defined 780.2 Syncope & Collapse 401.9 Hypertension Unspec 785.2 Murmur Cardiac Undiagnosed Office Visit 05/07/2003 9:00a [facility] Karson Monge 441.2 Aneurysm Danielle Patten Thoracic W/O Rupture 436 Cerebrovascular Disease Acute Ill-Defined 780.2 Syncope & Collapse 401.9 Hypertension Unspec 785.2 Murmur Cardiac Undiagnosed Plan of Treatment Future Appointment(s):02/14/2019 3:40 pm - Karson Patten M.D. at [facility]02/26/2019 10:20 am - Keo Rangel M.D. at [facility] Internal Medicine - [facility]11/12/2018 - Valeria S. Foster, N.P.I34.0 Nonrheumatic mitral (valve) [id number] Atrioventricular block, gnygjyqvN52.0 Presence of cardiac pacemakerFollow up:[facility] 01/2019 as scheduled.I48.2 Chronic atrial fibrillationRecommendations:afib rates controlled; continue diltiazem.I11.9 Hypertensive heart diseaseRecommendations:Stay well hydrated and try to exercise 3-4x week on top of mowing the lawnI42.9 Cardiomyopathy, unspecifiedRecommendations:Heart function is lower 45-50% this could be from new blockages or from the pacemaker. We will watch heart function closely You are dependent on the pacemaker and may be a candidate for a biventricular pacemaker at one point.
--- OUTSIDE RECORDS SUMMARY | 2018-11-23 18:07 | XMS REPORT | Continuity of Care Document ---
:1940 External Reference #:[id number] Author Name Milly Pugh Care Team Providers Name Role Phone Keo Rangel III, MD Primary Care Physician Unavailable Payers Date Identification Numbers Payment Provider Subscriber Effective: 2003 Policy Number: [id number] Medicare [place] PayID: [id number] [address] [place] [address] Effective: 2013 Policy Number: [id number] BS Facets [place] PayID: [id number] [address] [address] [place] Shane [address] Expires: 2013 Policy Number: [id number] [employer] [place] PayID: [id number] [address] [address] [place] [address] Advance Directives Type Date Description Status Comment [...] Comments : (age 73 Father due to [place] 3 IL's Years) Father Heart Disease enlarged heart : [...] Marital Status Lives With 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 Tobacco Use Start: Unknown End: Former Cigarette Smoker for 6 years Unknown 2 Packs Daily ETOH Use one beer per day. ETOH Use 02/13/2017 Consumes 1 beer per day Tobacco Use Start: Unknown End: Patient is a former Unknown smoker Recreational Drug Use Denies Drug Use Smoking Status Reviewed: 10/16/18 Patient is a former smoker Exercise Type/Frequency [...] Henson 06/28/2018 mouth every day Danielle Rangel [id number]-mcg-mg Capsules Lipitor 1/2 tab by mouth 45tabs [...] 50mcg apart Danielle Connolly,FACP Suspension Rec Vascepa Take 1 Capsule 180caps Westley Yoder 05/15/2017 1gm Capsules Twice A Day Danielle Connolly,FACP Uroxatral take 1 tablet by 90tabs Westley Yoder 02/13/2017 10mg Tablets mouth one time Danielle Connolly,FACP ER 24HR daily Pradaxa 1 cap by mouth 180caps Karson Monge 11/08/2016 150mg Capsules twice a day Danielle Patten Finasteride 1 by mouth every 90tabs N40.1 Westley Yoder 02/12/2016 5mg Tablets day Danielle Connolly,FACP Nitrostat one sl q5min up 1bottle Karson [...] one [facility] bedtime as needed Danielle Rangel [...] - 510mg/17ML Solution x1, repeat in 1 [employer], 03/15/2018 week x1 Danielle,FACP Iferex 150 Forte 1 by mouth every 90caps Westley Yoder 11/07/2017 - day [employer], 06/28/2018 840-65-5wv-mcg-mg Capsules Radha.DJosefina,FACP Ferrous Sulfate 1 by mouth twice 60tabs Westley Yoder 10/16/2017 - 325(65Fe) mg a day [employer], 10/16/2017 Tablets Danielle,FACP Diltiazem CD 2 tablets [...] Westley Yoder 02/19/2015 - 5mg Tablets mouth [employer], 11/15/2015 Danielle,FACP Metoprolol Succinate ER 1 by mouth twice 200tabs Karson Monge 01/22/2015 - 25mg a day Danielle Patten 12/11/2015 Tablets ER 24HR Vncpn-6-Stas Ethyl Esters 1 by mouth twice 180caps Westley Yoder 2014 - 1gm a day [employer], 05/15/2017 Capsules Danielle,FACP Cialis Take 1 Tablet By 30tabs 607.84 [facility], 02/18/2014 - 2.5mg Tablets Mouth Once Daily [employer] [employer] 02/19/2015 Spironolactone No Longer Taking 45tabs Karson [...] generic brand name/riana Lipitor 1 po qhs Karson Monge 10/02/2008 - 10mg Tablets Danielle Patten 10/21/2008 Lovaza take one capsule 180caps I25.10 Westley Yoder 03/07/2008 - 1gm Capsules by mouth twice a [employer], 02/12/2016 day Danielle,FACP Chlorhexidine bid Karson Monge [...] Danielle,FACP Dexamethasone 1 PO qd last dose Karson F. 10/03/2007 - 0.5mg Tablets 09/28 Danielle Patten 10/03/2007 Toradol Oral total 5 days post 50tabs Karson Monge 10/03/2007 - 10mg Tablets dental work Danielle Patten 10/03/2007 Clarithromycin 1 PO bid until Karsonli Monge 10/03/2007 - 500mg Tablets / post dental Danielle Patten 02/15/2008 work Avodart [...] Danielle Patten 05/20/2009 Calcium 1 po bid Karson Monge 05/07/2003 - Tablets Danielle Patten 05/12/2005 [...] 180tabs Westley Yoder 05/06/2003 - 150mg Tablets [employer], 09/22/2011 Danielle,FACP Rhinocort Aqua Nasal [place] at bedtime Karson Monge 05/06/2003 - 150mg [...] 90tabs Westley Yoder - 5mg Tablets day [employer], 10/16/2017 Danielle,STEPHEN Flomax 1 by mouth every 90caps Westley Yoder - 0.4mg Capsules day [employer], 02/13/2017 Danielle,STEPHEN Budesonide instill one spray Unknown [...] Inj, Regadenoson, 0.1 MG Zach Hdz, DO [facility] 03/04/2015 Injection Inj, Regadenoson, 0.1 MG Karson Patten M.D. 03/04/2015 Injection Technetium TC 99M Zach Hdz, DO [facility] 03/04/2015 Tetrofosmin, Per Unit Dose Up To 40 Millicuries Injection Technetium TC 99M Karson Patten M.D. 03/04/2015 Tetrofosmin, Per Unit Dose Up To 40 Millicuries Injection Immunizations CPT Code Status Date Vaccine Lot # 11885 Given 03/03/2018 Zoster (Shingles) Vaccine (HZV), Recombinant, Subunit, Adjuvanted 68123 Given 03/03/2018 Zoster (Shingles) Vaccine (HZV), Recombinant, Subunit, Adjuvanted 61992 Given 03/02/2018 Fluzone High Dose 10561 Given 10/13/2017 Zoster (Shingles) Vaccine (HZV), Recombinant, Subunit, Adjuvanted 18509 Given 02/12/2016 Influenza Virus Vaccine, Quadrivalent, Split, [id number] Preservative Free 90370 Given 02/19/2015 Influenza Virus Vaccine, Quadrivalent, Split, [id number] Preservative Free 61336 Given 12/16/2014 Pneumococcal Conjugate Vaccine 13 Valent For [id number] Intramuscular Use 28240 Given 02/19/2013 Fluzone High Dose [id number] 54337 Given 03/01/2012 Tdap - Tetanus/Diptheria/Acellular Pertussis [id number] Given 02/27/2012 Fluzone Vaccine 19697 Given 02/27/2012 Influenza Virus 3Yrs & Over 53674 Given 05/11/2009 Influenza Virus Vaccine, Pandemic Formulation [id number] 91011 Given 03/07/2009 Zoster (Zostavax) 48101 Given 03/07/2008 Influenza Virus 3Yrs & Over 31504 Given 03/07/2008 Influenza Virus 3Yrs & Over [id number] 74576 Given 04/04/2007 Zoster (Zostavax) 91234 Given 04/04/2007 Pneumonia Vaccine Vital Signs Date Vital Result Comment 10/16/2018 9:20am Height 70.5 inches 5'10.50" Weight [...] Result H/L Range Note Laboratory test 10/12/2018 [facility] Magnesium 2.0 mg/dL N 1.9-2.[address] [place] [address] [phone] CBC Auto Diff 10/12/2018 [facility] White Blood 4.8 10^3/uL N 3.5-10.[address] [place] [address] [phone] Red Blood Count 4.41 10^6/uL N 4.18-5.48 [...] Blood Cells % 0.0 Lipid Profile 10/12/2018 [facility] Triglycerides 40 mg/dL 2 (Trig/Chol/HDL) [address] [place] [address] [phone] Cholesterol 103 mg/dL 3 HDL Cholesterol 43.2 mg/dL 4 LDL Cholesterol 52 mg/dL 5 Comp Metabolic Panel 10/12/2018 [facility] Sodium 139 mmol/L N 135-145 [address] [place] [address] [phone] Potassium 4.2 mmol/L N 3.5-5.0 Chloride 104 [...] 87.2 >60 6 Lipid Panel - 10/12/2018 [facility] Creatine 147 U/L N 10-223 7 JFM [address] [facility] Kinase(CK) [place] [address] [phone] Vitamin B12 10/12/2018 [facility] Vitamin B12 879 pg/mL N 180- 914 8 And Folate [address] [facility] [place] [address] [phone] Folic Acid (Folate) > 20.00 ng/mL >3.99 Iron & Iron Binding 10/12/2018 [facility] Iron 90 g/dL N 50- 212 [address] [place] [address] [phone] Unsaturated Iron Binding < 339 g/dL Total Iron Binding Capacity 354 g/dL N 250-450 Transferrin 253 mg/dL N 203-362 % Iron Saturation 25 % N 15-55 Laboratory test 10/12/2018 [facility] Ferritin 38.1 ng/mL N 24 -336 finding [address] [place] [address] [phone] Lipid Panel - JFM 02/21/2018 [facility] Creatine 159 U/L N 10- [address] Kinase(CK) [place] [address] [phone] Comp Metabolic 02/21/2018 [facility] Sodium 140 mmol/L N 135- 145 Panel [address] [place] [address] [phone] Potassium 4.3 mmol/L N 3.5-5.0 Chloride 105 [...] Egfr 89.3 >60 9 Lipid Profile 02/21/2018 [facility] Triglycerides 41 mg/dL 10 (Trig/Chol/HDL) [address] [place] [address] [phone] Cholesterol 102 mg/dL 11 HDL Cholesterol 40.6 mg/dL 12 LDL Cholesterol 53 mg/dL 13 CBC Auto Diff 02/21/2018 [facility] White Blood 3.8 10^3/uL N 3.5-10.[address] [place] [address] [phone] Red Blood Count 4.54 10^6/uL N 4.00-5.40 [...] Red Blood Cells % 0.1 Protein 02/21/2018 [facility] Total 6.9 g/dL 6.3 - Electrophoresis [address] [facility] Protein(Pep) 7.9 [place] [address] [phone] Albumin 3.6 g/dL 3.4-4.7 Alpha-1 Globulin 0.3 g/dL 0.1-0.3 Alpha-2 Globulin 0.8 g/dL 0.6-1.0 Beta Globulin 0.9 g/dL 0.7-1.2 Gamma Globulin 1.4 g/dL 0.6-1.6 Albumin/Globulin Ratio 1.09 Impression See Comment 14 Iron & Iron Binding 02/21/2018 [facility] Iron 40 g/dL Low 50-212 [address] [place] [address] [phone] Unsaturated Iron Binding 381 g/dL Total Iron Binding Capacity 421 g/dL N 250-450 Transferrin 301 mg/dL N 203-362 % Iron Saturation 10 % Low 15-55 Laboratory test 02/21/2018 [facility] Ferritin 29.0 ng/mL N 24 -336 finding [address] [place] [address] [phone] CBC Auto Diff 11/22/2017 [facility] White Blood 4.6 10^3/uL N 3.5-10.[address] [place] [address] [phone] Red Blood Count 4.22 10^6/uL N 4.00-5.40 [...] % 0 Iron & Iron Binding 11/22/2017 [facility] Iron 55 g/dL N 50- 212 [address] [place] [address] [phone] Unsaturated Iron Binding 320 g/dL Total Iron Binding Capacity 375 g/dL N 250-450 Transferrin 268 mg/dL N 203-362 % Iron Saturation 15 % N 15-55 Comp Metabolic Panel 11/22/2017 [facility] Sodium 137 mmol/L N 135-145 [address] [place] [address] [phone] Potassium 4.4 mmol/L N 3.5-5.0 Chloride 104 [...] Egfr 78.3 >60 15 Laboratory test 11/22/2017 [facility] Lyme Disease Positive Negative [address] [place] [address] [phone] Lyme Western 11/22/2017 [facility] Lyme Disease Negative Negative Blot [address] [place] [address] [phone] Lyme Disease IgG Bands Present No bands detecte <SEE NOTE> kDa 17 Lyme Disease IgM Ab WB Negative Negative Lyme Disease IgM Bands Present No bands detecte <SEE NOTE> kDa 18 Lyme Disease Interpretation See Comment 19 Iron & Iron 11/01/2017 [facility] Total Iron 346 g/dL N 250- [address] [place] [address] Capacity [phone] Transferrin 247 mg/dL N 203-362 Iron < 15 g/dL Low 50-212 Unsaturated Iron Binding 331.91914 g/dL % Iron Saturation 4 % Low 15-55 Comp Metabolic Panel 11/01/2017 [facility] Sodium 136 mmol/L Low 139-[address] [place] [address] [phone] Potassium 4.4 mmol/L N 3.5-5.0 Chloride 102 [...] 96.3 >60 20 CBC Auto Diff 11/01/2017 [facility] White Blood 4.1 10^3/uL N 3.5-10.[address] [place] [address] [phone] Red Blood Count 4.23 10^6/uL N 4.0-5.4 [...] Cells % 0.1 Comp Metabolic Panel 02/02/2017 [facility] Sodium 137 mmol/L N 133-[address] [place] [address] [phone] Potassium 3.9 mmol/L N 3.5-5.0 Chloride 102 [...] 84.1 N >60 21 Laboratory test 02/02/2017 [facility] Vitamin B12 820 pg/mL N 180-914 [address] [place] [address] [phone] CBC Auto Diff 02/02/2017 [facility] White Blood 4.6 10^3/uL N 3.5-10.[address] [place] [address] [phone] Red Blood Count 4.47 10^6/uL N 4.0-5.4 [...] % 0.1 N Lipid Panel - 11/11/2016 [facility] Creatine 236 U/L High 10- [address] Kinase(CK) [place] [address] [phone] Comp Metabolic 11/11/2016 [facility] Sodium 138 N 133-[address] mmol/[place] [address] [phone] Potassium 4.0 mmol/L N 3.5-5.0 Chloride 102 [...] 81.8 N >60 23 Lipid Profile 11/11/2016 [facility] Triglycerides 39 mg/dL N 24 (Trig/Chol/HDL) [address] [place] [address] [phone] Cholesterol 100 mg/dL N 25 HDL Cholesterol 43.6 mg/dL N 26 LDL Cholesterol 49 mg/dL N 27 CBC Auto Diff 11/11/2016 [facility] White Blood 4.6 10^3/uL N 3.5-10.[address] [place] [address] [phone] Red Blood Count 4.69 10^6/uL N 4.0-5.4 [...] Cells % 0.1 N Laboratory test 11/11/2016 [facility] TSH (Thyroid 2.66 mcIU/mL N 0.34-5.[address] Stim [place]) [place] [address] [phone] B-Type Natriuretic Peptide BNP 170 pg/mL High 28 Magnesium 2.0 mg/dL N 1.9-2.7 Lipid Panel - 02/04/2016 [facility] Creatine 118 U/L N 10-223 [address] Kinase([place]) [place] [address] [phone] Laboratory test 02/04/2016 [facility] Magnesium 2.0 mg/dL N 1.9-2.7 [address] [place] [address] [phone] Comp Metabolic 02/04/2016 [facility] Sodium 137 N 133-[address] mmol/[place] [address] [phone] Potassium 4.2 mmol/L N 3.5-5.0 Chloride 102 [...] 92.1 N >60 31 Lipid Profile 02/04/2016 [facility] Triglycerides 64 mg/dL N 32 (Trig/Chol/HDL) [address] [place], [place] [phone] Cholesterol 103 mg/dL N 33 HDL Cholesterol 34.4 mg/dL N 34 LDL Cholesterol 56 mg/dL N 35 CBC Auto Diff 02/04/2016 [facility] White Blood 5.9 10^3/uL N 3.5-10.[address] [place] [address] [phone] Red Blood Count 4.68 10^6/uL N 4.0-5.4 [...] Cells % 0 N Laboratory test 11/24/2015 [facility] B-Type 101 pg/mL High [address] [place] [address] Peptide BNP [phone] CBC Auto Diff 11/24/2015 [facility] White Blood 4.4 N 3.5-[address] Count 10^3/uL 0.8 [place] [address] [phone] Red Blood Count 4.79 10^6/uL N 4.0-5.4 [...] Cells % 0.1 N Laboratory test 11/24/2015 [facility] Magnesium 1.9 mg/dL N 1.9-2.[address] [place] [address] [phone] Lipid Profile 11/24/2015 [facility] Triglycerides 42 mg/dL N 38 (Trig/Chol/HDL) [address] [place] [address] [phone] Cholesterol 93 mg/dL N 39 HDL Cholesterol 36.1 mg/dL N 40 LDL Cholesterol 49 mg/dL N 41 Comp Metabolic Panel 11/24/2015 [facility] Sodium 136 mmol/L N 133-145 [address] [place] [address] [phone] Potassium 4.1 mmol/L N 3.5-5.0 Chloride 102 [...] N >60 42 Lipid Panel - 11/24/2015 [facility] Creatine 246 U/L High 10- 223 [address] Kinase(CK) [place] [address] [phone] Lipid Panel - 12/18/2014 [facility] Creatine 157 U/L N 10-223 44, [address] Kinase(CK) [place] [address] [phone] Comp Metabolic 12/18/2014 [facility] Sodium 137 N 133-[address] mmol/[place] [address] [phone] Potassium 4.0 mmol/L N 3.5-5.0 Chloride 103 [...] 86.6 N >60 46 Lipid Profile 12/18/2014 [facility] Triglycerides 42 mg/dL N 47 (Trig/Chol/HDL) [address] [place] [address] [phone] Cholesterol 102 mg/dL N 48 HDL Cholesterol 37.0 mg/dL N 49 LDL Cholesterol 57 mg/dL N 50 Laboratory test 02/27/2014 [facility] Blood Urea 16 mg/dL N 6- 24 finding [address] [facility] [address] [phone] Creatinine 02/27/2014 [facility] Creatinine 1.03 mg/dL N 0.67- 1.17 [address] [place] [address] [phone] Egfr Non- 70.4 N >60 Egfr 90.5 N >60 51 Lipid Profile 01/09/2014 [facility] Triglycerides 36 mg/dL N 52, 53 (Trig/Chol/HDL) [address] [place] [address] [phone] Cholesterol 95 mg/dL N 54 HDL Cholesterol 43.2 mg/dL N 55 LDL Cholesterol 45 mg/dL N 56 Basic Metabolic Panel 01/09/2014 [facility] Sodium 136 mmol/L N 133-145 [address] [place] [address] [phone] Potassium 4.3 mmol/L N 3.7-5.6 Chloride 103 [...] N >60 57 Basic Metabolic Panel 01/10/2013 [facility] Sodium 136 mmol/L 133-145 [address] [place] [address] [phone] Potassium 4.5 mmol/L 3.5-5.0 Chloride 101 mmol/L 101-111 Co2 Carbon Dioxide 29.0 mmol/L 22-32 Anion Gap 6.0 mmol/L 2-11 Glucose 85 mg/dL 70-100 Blood Urea Nitrogen 15 mg/dL 6-24 Creatinine 1.00 mg/dL 0.50-1.40 BUN/Creatinine Ratio 15.0 8-20 Calcium 9.3 mg/dL 8.1-9.9 Egfr Non- 73.0 >60 Egfr 93.9 >60 58 Basic Metabolic Panel 12/11/2012 [facility] Sodium 137 mmol/L 133-145 [address] [place] [address] [phone] Potassium 4.4 mmol/L 3.5-5.0 Chloride 103 mmol/L 101-111 Co2 Carbon Dioxide 31.0 mmol/L 22-32 Anion Gap 3.0 mmol/L 2-11 Glucose 97 mg/dL 70-100 Blood Urea Nitrogen 13 mg/dL 6-24 Creatinine 1.00 mg/dL 0.50-1.40 BUN/Creatinine Ratio 13.0 8-20 Calcium 9.2 mg/dL 8.1-9.9 Egfr Non- 73.2 >60 Egfr 94.2 >60 59 Laboratory test 12/11/2012 [facility] Creatine 158 U/L 0-200 finding [address] [facility] [place] [address] [phone] Laboratory test 11/18/2012 [facility] Lyme Disease Negative Negative 60 finding [address] [facility] [place] [address] [phone] Laboratory test 11/18/2012 [facility] Creatine 180 U/L 0-200 finding [address] [facility] [address] [phone] Blood Culture (SEE NOTE) 61 CBC Auto Diff 11/18/2012 [facility] White Blood 8.6 10^3/uL 4.8-10.[address] [place] [address] [phone] Red Blood Count 4.68 10^6/uL 4.0-5.4 Hemoglobin [...] Blood Cells % 0.1 Laboratory test 11/18/2012 [facility] Troponin I 0.02 ng/mL 0 -0.06 62 finding [address] [place] [address] [phone] B Type Natriuretic Peptide 155.0 pg/mL High 0-100 Comp Metabolic Panel 11/18/2012 [facility] Sodium 134 mmol/L 133-145 [address] [place], [place] [phone] Potassium 3.7 mmol/L 3.5-5.0 Chloride 103 mmol/L [...] 94.2 >60 63 Urine Culture And 11/18/2012 [facility] Urine Culture (SEE NOTE ) 64 Sensitivities [address] [place] [address] [phone] Urinalysis 11/18/2012 [facility] Urine Color Yellow [address] [place] [address] [phone] Urine Appearance Clear Urine Specific Bryan 1.010 1.010-1.030 Urine Esterase Negative Negative Urine Nitrate Negative Negative Urine Urobilinogen Negative E.U./dL Negative Urine Protein Negative mg/dL Negative Urine pH 7.0 5-9 Urine Blood Negative Negative Urine Ketones Negative mg/dL Negative Urine Bilirubin Negative Negative Urine Glucose Negative mg/dL Negative Blood Culture 11/18/2012 [facility] Blood Culture (SEE NOTE) 65 [address] [place] [address] [phone] Laboratory test 11/18/2012 [facility] Lactic Acid 0.8 mmol/L 0.5-1. finding [address] [place] [address] [phone] Lipid Profile 10/05/2012 [facility] Triglycerides 33 mg/dL Low 40-200 (Trig/Chol/HDL) [address] [place] [address] [phone] Cholesterol 104 mg/dL Less than 200 HDL Cholesterol 38 mg/dL Low 40-60 66 Cholesterol/HDL Ratio 2.7 Average 1-4.44 LDL Cholesterol 59.4 mg/dL Less Than 100 67 Comp Metabolic Panel 10/05/2012 [facility] Sodium 139 mmol/L 133-145 [address] [place] [address] [phone] Potassium 4.0 mmol/L 3.5-5.0 Chloride 105 mmol/L [...] 94.2 >60 68 Lipid Panel - 10/05/2012 [facility] Creatine Kinase 371 U/L High 0-200 JFM [address] [place] [address] [phone] CBC Auto Diff 09/22/2011 [facility] White Blood 4.1 CUMM Low 4.8-10.[address] [place] [address] [phone] Red Cell Count 4.68 CUMM 4.6-6.2 Hemoglobin [...] Abs Basophils 0 0-0.2 Laboratory test 09/22/2011 [facility] TSH 3.15 MIU/ML 0.34- 5.60 finding [address] [place] [address] [phone] Comp Metabolic 09/22/2011 [facility] Sodium 137 mmol/L 135- 145 Panel [address] [place] [address] [phone] Potassium 4.3 mmol/L 3.5-5.0 Chloride 103 mmol/L [...] 94.5 > 60 71 Lipid Profile 09/22/2011 [facility] Triglyceride 26 mg/dL Low 40-200 (Trig/Chol/HDL) [address] [place] [address] [phone] Cholesterol 96 mg/dL Low Less Than 200 72 High Density Lipoprotein 34 mg/dL Low 40-60 73 Cholesterol/HDL Ratio 2.82 AVERAGE 1-4.97 Low Density Lipoprotein 57 mg/dL Less Than 100 74 Laboratory test 09/22/2011 [facility] C Reactive < 0.5 mg/dL Less Than finding [address] Protein 0.5 [place] [address] [phone] Erythrocyte Sed Rate 7 MM/HR 0-40 CPK (Creatine Kinase) 183 U/L 0-200 Lipid Panel - 11/02/2010 [facility] CPK (Creatine 183 U/L 0- [address] Kinase) [place] [address] [phone] Comp Metabolic 11/02/2010 [facility] Sodium 140 135-[address] mmol/[place] [address] [phone] Potassium 4.6 mmol/L 3.5-5.0 Chloride 106 mmol/L [...] 84.9 > 60 77 Lipid Profile 11/02/2010 [facility] Triglyceride 30 mg/dL Low 40-200 (Trig/Chol/HDL) [address] [place] [address] [phone] Cholesterol 101 mg/dL Less Than 200 78 High Density Lipoprotein 36 mg/dL Low 40-60 79 Cholesterol/HDL Ratio 2.81 AVERAGE 1-4.97 Low Density Lipoprotein 59 mg/dL Less Than 100 80 Laboratory test 02/10/2010 [facility] Vitamin B12 652 pg/mL 180-914 finding [address] [place] [address] [phone] FSH And LH 02/10/2010 [facility] FSH 9.73 MIU/ML 81 [address] [place] [address] [phone] Lutenizing Hormone 7.74 MIU/ML 82 Laboratory test 02/10/2010 [facility] Prolactin 8.48 NG/ML 1.0-20.0 finding [address] [place] [address] [phone] Testosterone Total 417.0 ng/dL 175-781 Basic Metabolic Panel 11/20/2009 [facility] Sodium 140 mmol/L 135-145 [address] [place] [address] [phone] Potassium 4.4 mmol/L 3.5-5.0 Chloride 105 mmol/L 101-111 Co2 (Carbon Dioxide) 31.0 mmol/L 22-32 Anion Gap 4.0 mmol/L 2-11 83 Glucose 101 mg/dL High 70-100 84 BUN 19 mg/dL 6-24 Creatinine 1.10 mg/dL 0.50-1.40 One Over Creatinine 0.90 BUN/Creatinine Ratio 17.6 8-20 Calcium 8.8 mg/dL 8.1-9.9 85 eGFR Non- 70.3 > 60 eGFR 85.1 > 60 86 Lipid Profile 11/20/2009 [facility] Triglyceride 42 mg/dL 40- 200 (Trig/Chol/HDL) [address] [place] [address] [phone] Cholesterol 107 mg/dL Less Than 200 87 High Density Lipoprotein 28 mg/dL Low 40-60 88 Cholesterol/HDL Ratio 3.82 AVERAGE 1-4.97 Low Density Lipoprotein 71 mg/dL Less Than 100 89 CBC With 11/20/2009 [facility] White Blood 4.1 CUMM Low 4.8- 10.8 Electronic Diff [address] [place] [address] [phone] Red Cell Count 4.84 CUMM 4.6-6.2 Hemoglobin [...] Abs Basophils 0 0-0.2 Laboratory test 11/20/2009 [facility] CPK (Creatine 173 U/L 0 -[address] Kinase) [place] [address] [phone] Lipid Profile 05/07/2009 [facility] Triglyceride 49 mg/dL 40- 200 (Trig/Chol/HDL) [address] [place] [address] [phone] Cholesterol 107 mg/dL Less Than 200 90 High Density Lipoprotein 31 mg/dL Low 40-60 91 Cholesterol/HDL Ratio 3.45 AVERAGE 1-4.97 Low Density Lipoprotein 66 mg/dL Less Than 100 92 Laboratory test 05/07/2009 [facility] CPK (Creatine 157 U/L 0 -[address] Kinase) [place] [address] [phone] CBC With 05/07/2009 [facility] White Blood 4.4 CUMM Low 4.8- 10.8 Electronic Diff [address] [place] [address] [phone] Red Cell Count 5.04 CUMM 4.6-6.2 Hemoglobin [...] Basophils 0.1 0-0.2 Comp Metabolic Panel 05/07/2009 [facility] Sodium 139 mmol/L 135-[address] [place] [address] [phone] Potassium 4.3 mmol/L 3.5-5.0 Chloride 105 mmol/L [...] 85.1 > 60 97 CBC With 02/20/2009 [facility] White Blood 5.4 CUMM 4.8-10.8 Electronic Diff [address] [place] [address] [phone] Red Cell Count 4.79 CUMM 4.6-6.2 Hemoglobin [...] Abs Basophils 0.1 0-0.2 Laboratory test 02/20/2009 [facility] TSH 2.39 MIU/ML 0.34- 5.[address] [place] [address] [phone] Laboratory test 02/10/2009 [facility] PSA,Diagnost 1.17 NG/ML 0-4 [address] [place] [address] [phone] Liver Function 02/10/2009 [facility] Total 6.2 GM/DL 6.2-8.[address] [place] [address] [phone] Albumin 3.6 GM/DL 3.2-5.2 Globulin 2.6 GM/DL 2-4 Albumin/Globulin Ratio 1.4 1-3 Bilirubin Total 0.9 mg/dL 0.4-1.5 99 Bilirubin Direct 0.2 mg/dL 0.1-0.5 Indirect Bilirubin 0.7 mg/dL 0.1-0.75 Alkaline Phosphatase 50 U/L 39-117 Alt (SGPT) 28 U/L 17-63 Ast (Sgot) 28 U/L 12-42 Basic Metabolic Panel 02/10/2009 [facility] Sodium 139 mmol/L 135-[address] [place] [address] [phone] Potassium 4.1 mmol/L 3.5-5.0 Chloride 104 mmol/L 101-111 Co2 (Carbon Dioxide) 29.0 mmol/L 22-32 Anion Gap 6.0 mmol/L 2-11 100 Glucose 99 mg/dL 70-100 101 BUN 12 mg/dL 6-24 Creatinine 1.10 mg/dL 0.50-1.40 One Over Creatinine 0.90 BUN/Creatinine Ratio 10.9 8-20 Calcium 8.9 mg/dL 8.1-9.9 102 eGFR Non- 70.3 > 60 eGFR 85.1 > 60 103 Lipid Profile 02/10/2009 [facility] Triglyceride 36 mg/dL Low 40-200 (Trig/Chol/HDL) [address] [place] [address] [phone] Cholesterol 104 mg/dL Less Than 200 104 High Density Lipoprotein 30 mg/dL Low 40-60 105 Cholesterol/HDL Ratio 3.47 AVERAGE 1-4.97 Low Density Lipoprotein 67 mg/dL Less Than 100 106 Laboratory test 02/06/2008 [facility] CPK (Creatine 128 U/L 0 -[address] Kinase) [place] [address] [phone] PSA,Diagnostic 1.42 NG/ML 0-4 107 Liver Function 02/06/2008 [facility] Total Protein 6.6 GM/DL 6.2-8.[address] [place] [address] [phone] Albumin 3.9 GM/DL 3.2-5.2 Globulin 2.7 GM/DL 2-4 Albumin/Globulin Ratio 1.4 1-3 Bilirubin Total 0.9 mg/dL 0.4-1.5 Bilirubin Direct 0.2 mg/dL 0.1-0.5 Indirect Bilirubin 0.7 mg/dL 0.1-0.75 Alkaline Phosphatase 48 U/L 39-117 Alt (SGPT) 26 U/L 17-63 Ast (Sgot) 28 U/L 12-42 Lipid Profile 02/06/2008 [facility] Triglyceride 56 mg/dL 40- 200 (Trig/Chol/HDL) [address] [place] [address] [phone] Cholesterol 127 mg/dL Less Than 200 108 High Density Lipoprotein 31 mg/dL Low 40-60 109 Cholesterol/HDL Ratio 4.10 AVERAGE 1-4.97 Low Density Lipoprotein 85 mg/dL Less Than 100 110 Comp Metabolic Panel 02/06/2008 [facility] Sodium 141 mmol/L 135-145 [address] [place] [address] [phone] Potassium 4.2 mmol/L 3.5-5.0 Chloride 108 mmol/L [...] 25 U/L 12-42 Comp Metabolic Panel 05/15/2007 [facility] One Over Creatinine [address] [place] [address] [phone] Anion Gap 5.0 mmol/L 2-11 114 Albumin/Globulin [...] Creatinine 1.3 mg/dL 0.5-1.4 Lipid Profile 05/15/2007 [facility] Cholesterol/HDL 3.52 1- 4.97 (Trig/Chol/HDL) [address] [place] [place] [address] [phone] Cholesterol 109 mg/dL Less Than 200 115 Triglyceride 62 mg/dL 40-200 High Density Lipoprotein 31 mg/dL Low 40-60 116 Low Density Lipoprotein 66 mg/dL Less Than 100 117 Lipid Panel - 05/15/2007 [facility] CPK (Creatine 159 U/L 0- [address] Kinase) [place] [address] [phone] Liver Function 01/31/2007 [facility] Albumin/Globulin 1.7 1- 3 [address] [place] [address] [phone] Albumin 3.8 GM/DL 3.2-5.2 Alkaline Phosphatase 46 U/L 39-117 Alt (SGPT) 27 U/L 17-63 Ast (Sgot) 29 U/L 12-42 Bilirubin Direct 0.2 mg/dL 0.1-0.5 Globulin 2.2 GM/DL 2-4 Indirect Bilirubin 0.9 mg/dL High 0.1-0.75 Bilirubin Total 1.1 mg/dL 0.4-1.5 Total Protein 6.0 GM/DL Low 6.2-8.1 Basic Metabolic 01/31/2007 [facility] One Over Creatinine 0.[address] [place] [address] [phone] Anion Gap 6.0 mmol/L 2-11 119 BUN 16 mg/dL 6-24 Calcium 8.3 mg/dL Low 8.7-10.2 Chloride 107 mmol/L 101-111 Co2 (Carbon Dioxide) 28.0 mmol/L 22-32 Glucose 95 mg/dL 70-105 Potassium 4.2 mmol/L 3.5-5.0 Sodium 141 mmol/L 135-145 BUN/Creatinine Ratio 13.3 8-20 Creatinine 1.2 mg/dL 0.5-1.4 CBC W/ Electronic 01/31/2007 [facility] White Blood 5.3 CUMM 4.8-10.[address] [place] [address] [phone] Abs Basophils 0 0-0.2 Abs Eosinophils 0.5 [...] WDTH 13 % 10.5-15 Laboratory test 01/31/2007 [facility] PSA Screening 4.080 NG/ML High 0.01-4.[address] [place] [address] [phone] Lipid Profile 01/31/2007 [facility] Cholesterol/H 3.96 1- 4.97 (Trig/Chol/HDL) [address] [place] [address] [phone] Cholesterol 107 mg/dL Less Than 200 120 Triglyceride 59 mg/dL 40-200 High Density Lipoprotein 27 mg/dL Low 40-60 121 Low Density Lipoprotein 68 mg/dL Less Than 100 122 Comp Metabolic 09/26/2006 [facility] One Over Creatinine 1.[address] [place] [address] [phone] Anion Gap 5.0 mmol/L 2-11 124 Albumin/Globulin [...] Creatinine 1.0 mg/dL 0.5-1.4 Lipid Profile 09/26/2006 [facility] Cholesterol/HDL 3.83 1- 4.97 (Trig/Chol/HDL) [address] [place] [place] [address] [phone] Cholesterol 115 mg/dL Less Than 200 125 Triglyceride 56 mg/dL 40-200 High Density Lipoprotein 30 mg/dL Low 40-60 126 Low Density Lipoprotein 74 mg/dL Less Than 100 127 Laboratory test 09/26/2006 [facility] CPK (Creatine 179 U/L 0 -[address] Kinase) [place] [address] [phone] Liver Function 10/28/2005 [facility] Bilirubin 0.2 mg/dL 0.1- 0.[address] [place] [address] [phone] Indirect Bilirubin 1.1 mg/dL High 0.1-0.75 Laboratory test 10/28/2005 [facility] CPK (Creatine 205 U/L High 0-[address] Kinase) [place] [address] [phone] Lipid Profile 10/28/2005 [facility] Cholesterol/HD 4.00 AVERAGE 1-4.97 (Trig/Chol/HDL) [address] [place] [address] [phone] Cholesterol 100 mg/dL Less Than 200 128 Triglyceride 49 mg/dL 40-200 High Density Lipoprotein 25 mg/dL Low 40-60 129 Low Density Lipoprotein 65 mg/dL Less Than 100 130 Comp Metabolic Panel 10/28/2005 [facility] One Over Creatinine 0.[address] [place] [address] [phone] Anion Gap 7.0 mmol/L 2-11 131 Albumin/Globulin [...] protein on serum electrophoresis. Test Performed by: [address] [id number] 15 Because ethnic data is not always [...] been ordered by reflex. Test Performed by: [facility] [place] [id number] [place] [address] 17 No bands detected 18 No bands [...] screening test (e.g., EIA). Test Performed by: [place] [id number] 20 Because ethnic data is not always [...] submitted in 7-14 days. Test Performed by: [place] [address] Unpaid Intern: Vimal Harrington III, M.D. 61 RUN DATE: 11/23/12 [facility] LAB LIVE PAGE 1 RUN TIME: [address] [place] [address] Specimen Inquiry Name: GA GTZ SR : [address]: Rachid Pop MD Acct: [id number] Unit: [id number] AGE: 71 Location: ED Re11/18/12 SEX: M Status: DEP ER SPEC: [id number] ROBERTA: 11/18/[address]: Quita LIMON REQ: [id number] RECD: 11/18/12 STATUS: KEVIN FABIAN DR: [facility] Westley Connolly MD _ SOURCE: BLOOD,VENO SPDESC: ORDERED: Blood Cult Procedure Result Verified Site Aerobic Culture Bottle Final 11/23/12- 2155 ML No Growth Day 5 Anaerobic Culture Bottle Final 11/23/12- 2155 ML No Growth Day 5 END OF REPORT * ML=Testing performed at Main Lab DEPARTMENT OF PATHOLOGY, [address] [place] [address] Jomar White M.D. Director [facility] Permit #[id number] 62 Reference Range and Interpretation: TnI (ng/mL) Interpretation Less Than 0.06 ng/mL Not supportive of diagnosis of [place] 0.06 - 0.50 ng/mL Indeterminate: suggest serial studies if clinically indicated. Greater than 0.5 ng/mL Consistent with diagnosis of IL 63 Because ethnic data is not always [...] <15 (or dialysis) 64 RUN DATE: 11/20/12 [facility] LAB LIVE PAGE 1 RUN TIME: 1026 [address] [place], [place] [address] Specimen Inquiry Name: GA GTZ SR : [address]: Rachid Pop MD Acct: [id number] Unit: [id number] AGE: 71 Location: ED Re11/18/12 SEX: M Status: DEP ER SPEC: [id number] ROBERTA: 11/18/12 [facility] DR: Rachid Pop MD REQ: [id number] RECD: 11/18/12 STATUS: KEVIN FABIAN DR: Westley Connolly MD _ SOURCE: URINE SPDESC: ORDERED: Urine Culture Procedure Result Verified Site Urine Culture Final 11/20/12- 1026 ML No Growth Day 2 (<1,000 CFU/mL) END OF REPORT * ML=Testing performed at Main Lab DEPARTMENT OF PATHOLOGY, [facility] [employer] [place], [place] [address] Jomar White M.D. Director [facility] Permit #[id number] 65 RUN DATE: 11/23/12 [facility] LAB LIVE PAGE 1 RUN TIME: 2300 [facility] [employer] [place], [place] [address] Specimen Inquiry Name: GA GTZ Jose TATE : [address]: Rachid Pop MD Acct: [id number] Unit: [id number] AGE: 71 Location: ED Re11/18/12 SEX: M Status: DEP ER SPEC: [id number] ROBERTA: 11/18/12 [facility] [address]: Quita LIMON REQ: [id number] RECD: 11/18/12 STATUS: KEVIN FABIAN DR: [facility] Westley Connolly MD _ SOURCE: BLOOD,VENO SPDESC: ORDERED: Blood Cult Procedure Result Verified Site Aerobic Culture Bottle Final 11/23/12- 2301 ML No Growth Day 5 Anaerobic Culture Bottle Final 11/23/12- 2301 ML No Growth Day 5 END OF REPORT * ML=Testing performed at Main Lab DEPARTMENT OF PATHOLOGY, [address] [place] [address] Jomar White M.D. Director [facility] Permit #[id number] 66 HDL Interpretation: Undesirable: High Risk: Less [...] has been shown to interfere with the [place] method for measuring total bilirubin. Samples from [...] has been shown to interfere with the [place] method for measuring total bilirubin. Samples from [...] change was based on recommendations from the [place] [employer]. 85 Please note change in [...] change was based on recommendations from the [place] [employer]. 95 Please note change in [...] SERUM LEVELS OF PSA MEASURED USING THE HEIDE CHAN ACCESS HYBRITECH IMMUNOASSAY SHOULD NOT BE INTERPRETED [...] change was based on recommendations from the [place] [employer]. 102 Please note change in [...] SERUM LEVELS OF PSA MEASURED USING THE HEIDE [employer] ACCESS HYBRITECH IMMUNOASSAY SHOULD NOT BE INTERPRETED [...] change was based on recommendations from the [place] [employer]. 113 Please note change in [...] . Procedures Date Code Description Status 10/18/2018 46032 ECHO Transthoracic, Real-Time 2D With Doppler And Color Completed Flow 10/18/2018 53940 ECHO Transthoracic, Real-Time 2D With Doppler And Color Completed Flow 10/16/2018 70627 EKG Tracing & Interpretation Completed 10/03/2018 [id number] Mammogram Completed 10/01/2018 44990 Pace Maker Eval W/Iterative Adjment Dual Lead Completed 10/01/2018 91670 Pace Maker Eval W/Iterative Adjment Dual Lead Completed 03/01/2018 [id number] Mammogram Completed 02/22/2018 21321 ECHO Stress Test Incl Perf Contiuous ekg Monitoring Completed W/Phys Superv 02/15/2018 60220 Pace Maker Eval W/Iterative Adjment Dual Lead Completed 02/15/2018 36077 Pace Maker Eval W/Iterative Adjment Dual Lead Completed 01/19/2018 58640 ECHO Transthoracic, Real-Time 2D With Doppler And Color Completed Flow 01/19/2018 70055 ECHO Transthoracic, Real-Time 2D With Doppler And Color Completed Flow 01/17/2018 20520 EKG Tracing & Interpretation Completed 12/08/2017 72383 Pace Maker Eval W/Iterative Adjment Dual Lead Completed 12/08/2017 21292 Pace Maker Eval W/Iterative Adjment Dual Lead Completed 11/01/2017 92318 Pace Maker Eval W/Iterative Adjment Dual Lead Completed 11/01/2017 01858 Pace Maker Eval W/Iterative Adjment Dual Lead Completed 10/20/2017 61255 EKG Tracing & Interpretation Completed 02/07/2017 51808 Pace Maker Eval W/Iterative Adjment Dual Lead Completed 12/19/2016 55722 Pace Maker Eval W/Iterative Adjment Dual Lead Completed 12/04/2016 77319 Holter Monitor Review (24 hr)dr review & interp only Completed 11/24/2016 09325 ECG Monitor/Recording W/Visual Superimposition Scanning Completed 11/08/2016 42968 Pace Maker Eval W/Iterative Adjment Dual Lead Completed 11/08/2016 90974 EKG Tracing & Interpretation Completed 10/25/2016 75470 Pace Maker Eval W/Iterative Adjment Dual Lead Completed 02/10/2016 74523 ECHO Stress Test Incl Perf Contiuous ekg Monitoring Completed W/Phys Superv 02/04/2016 31167 Color Flow Doppler/Interp & Reprt Completed 02/04/2016 78530 Echocardiography, Transesophageal, Real Time W/Image 2D Completed W/W/O M-M 02/04/2016 38354 Pulse Wave/Continuous-Interp.RPT Completed 01/01/2016 28523 Treadmill Interp/Report Only Completed 01/01/2016 37140 Stress Test Supervsn W/Out I/R Completed 12/23/2015 40399 Pace Maker Eval W/Iterative Adjment Dual Lead Completed 12/10/2015 29883 ECHO Transthoracic, Real-Time 2D With Doppler And Color Completed Flow 11/16/2015 58805 EKG Tracing & Interpretation Completed 03/12/2015 96439 EKG Tracing & Interpretation Completed 03/04/2015 33167 Myocardial Perfusion Imaging Tomographic (Spect) Completed Multiple Studies 03/04/2015 69858 Stress Test Completed 01/22/2015 30665 ECHO Stress Test Incl Perf Contiuous ekg Monitoring Completed W/Phys Superv 01/05/2015 47818 ECHO Transthoracic, Real-Time 2D With Doppler And Color Completed Flow 01/02/2015 51382 EKG Tracing & Interpretation Completed 11/27/2013 44912 ECHO Transthoracic, Real-Time 2D With Doppler And Color Completed Flow 11/27/2013 89202 EKG Tracing & Interpretation Completed 11/21/2013 97382 Interrogation Device Eval In Person W/ Completed Analysis,Single,Dual,Mul 05/09/2013 75282 Pace Maker Eval W/Iterative Adjment Dual Lead Completed 11/27/2012 24504 ECHO Transthoracic, Real-Time 2D With Doppler And Color Completed Flow 11/21/2012 88585 Pace Maker Eval W/Iterative Adjment Dual Lead Completed 10/17/2012 77531 EKG Tracing & Interpretation Completed 05/08/2012 24464 Pace Maker Eval W/Iterative Adjment Dual Lead Completed 01/19/2012 38356 Pace Maker Eval W/Iterative Adjment Dual Lead Completed 01/16/2012 35333 EKG Tracing & Interpretation Completed 10/04/2011 95258 Treadmill Interp/Report Only Completed 10/04/2011 67152 Stress Test Supervsn W/Out I/R Completed 09/27/2011 08853 Interrogation Device Eval In Person W/ Completed Analysis,Single,Dual,Mul 09/23/2011 67052 ECHO Stress Test Incl Perf Contiuous ekg Monitoring Completed W/Phys Superv 09/22/2011 83164 EKG Tracing & Interpretation Completed 05/12/2011 35373 Interrogation Device Eval In Person W/ Completed Analysis,Single,Dual,Mul 11/18/2010 49984 Interrogation Device Eval In Person W/DR Completed Analysis,Single,Dual,Mul 11/03/2010 79813 EKG Tracing & Interpretation Completed 05/07/2010 50059 Pace Maker Eval W/Iterative Adjment Dual Lead Completed 02/10/2010 83883 EKG Tracing & Interpretation Completed 12/24/2009 45729 EKG Tracing & Interpretation Completed 11/12/2009 29173 Pace Maker Eval W/Iterative Adjment Dual Lead Completed 05/20/2009 33828 EKG Tracing & Interpretation Completed 05/14/2009 43736 Pace Maker Eval W/Iterative Adjment Dual Lead Completed 10/23/2008 13702 Pace Maker Eval W/Iterative Adjment Dual Lead Completed 10/02/2008 95656 EKG Tracing & Interpretation Completed 05/15/2008 67884 Reprogram Pacemaker (Dual) Completed 02/15/2008 19454 EKG Tracing & Interpretation Completed 11/22/2007 79990 Pacemaker Check/Dual [place]/Office Completed 11/22/2007 93392 Pacemaker Check/Dual Hilton/Office Completed 11/22/2007 58985 Pacemaker Check/Dual Hilton/Office Completed 10/12/2007 97613 EKG Tracing & Interpretation Completed 10/12/2007 70599 EKG Tracing & Interpretation Completed 10/03/2007 73971 ECHO/Stress Completed 10/03/2007 40999 EKG Tracing & Interpretation Completed 10/03/2007 41810 ECHO/Stress Completed 10/03/2007 15933 ECHO/Stress Completed 10/03/2007 06991 Stress Test Completed 10/03/2007 31784 Stress Test Completed 05/24/2007 00611 Reprogram Pacemaker (Dual) Completed 05/24/2007 32106 Pulse Doppler & Continuous Wave Completed 05/24/2007 20205 Pulse Doppler & Continuous Wave Completed 05/24/2007 38150 EKG Tracing & Interpretation Completed 04/03/2007 52268 Pacemaker Check- Te[place] Dual Completed 04/03/2007 35630 Pacemaker Check- Te[place]race Dual Completed 03/20/2007 22854 Pacemaker Check- Te[place]race Dual Completed 02/01/2007 42504 Single Chamber Teletrace Completed 12/07/2006 86821 Pacemaker Check- [place] Dual Completed 11/24/2006 68553 Reprogram Pacemaker (Dual) Completed 11/24/2006 01321 Reprogram Pacemaker (Dual) Completed 10/13/2006 97374 Pacemaker Check- [place] Dual Completed 09/29/2006 52255 EKG Tracing & Interpretation Completed 09/29/2006 41815 EKG Tracing & Interpretation Completed 08/17/2006 37835 Pacemaker Check- Te[place]race Dual Completed 07/27/2006 [id number] Colonoscopy Completed 06/22/2006 35150 Pacemaker Check- Te[place]race Dual Completed 05/12/2006 48390 Reprogram Pacemaker (Dual) Completed 05/11/2006 36600 EKG Tracing & Interpretation Completed 01/23/2006 00887 Reprogram Pacemaker (Dual) Completed 01/13/2006 31734 Reprogram Pacemaker (Dual) Completed 01/13/2006 42716 Reprogram Pacemaker (Dual) Completed 2005 22620 EKG Tracing & Interpretation Completed 2005 59745 EKG Tracing & Interpretation Completed 12/09/2005 91254 ECHO/Stress Completed 12/09/2005 66343 Stress Test Completed 11/30/2005 79776 Echocardiogram Completed 11/30/2005 88929 Echocardiogram Completed 11/30/2005 38167 Pulse Doppler & Continuous Wave Completed 11/30/2005 07345 Color Doppler Completed 11/30/2005 09025 Color Doppler Completed 11/24/2005 48424 EKG Tracing & Interpretation Completed 11/24/2005 10706 EKG Tracing & Interpretation Completed 05/12/2005 27276 EKG Tracing & Interpretation Completed 05/13/2004 53540 EKG Tracing & Interpretation Completed 11/06/2003 40306 EKG Tracing & Interpretation Completed 05/20/2003 39732 Transesophageal Echocardiogram Completed 05/07/2003 28282 ECHO/Stress Completed 05/07/2003 01912 Stress Test Completed 05/06/2003 97691 Color Doppler Completed 05/06/2003 07535 Pulse Doppler & Continuous Wave Completed 05/06/2003 15893 Echocardiogram Completed Encounters Type Date Location Provider Dx Diagnosis Office Visit 10/16/2018 [facility] Karson Monge I44.2 Atrioventricular block, 9:40a Danielle Patten complete Z95.0 Presence of cardiac pacemaker I48.2 Chronic atrial fibrillation I11.9 Hypertensive heart disease without heart failure I35.0 Nonrheumatic aortic (valve) stenosis E78.00 Pure hypercholesterolemia, unspecified I34.0 Nonrheumatic mitral (valve) insufficiency Office Visit 10/05/2018 11:20a [facility] Internal Keo Henson 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 D50.9 Iron deficiency anemia, unspecified Office Visit 02/28/2018 9:00a [facility] Internal Westley Yoder Z00.01 Encounter for Andrey Connolly M.D.,FACP general adult [address] medical exam w abnormal findings Z95.2 Presence of prosthetic heart valve I48.2 Chronic atrial fibrillation D50.8 Other iron deficiency anemias N40.1 Benign prostatic hyperplasia with lower urinary tract symp D48.62 Neoplasm of uncertain behavior of left breast Office Visit 01/17/2018 [facility] Karson Monge I44.2 Atrioventricular 11:20a Cardiology Danielle Patten block, complete I48.2 Chronic atrial fibrillation E78.00 Pure hypercholesterolemia, unspecified Z95.2 Presence of prosthetic heart valve Office Visit 11/09/2017 9:30a [facility] Valeria SJosefina I71.2 Thoracic aortic Of [facility] Foster, N.P. aneurysm, without rupture I25.10 Athscl heart disease of [place] coronary artery w/o ang pctrs I44.2 Atrioventricular block, complete Z95.2 Presence of prosthetic heart valve I48.0 Paroxysmal atrial fibrillation Office Visit 10/20/2017 2:20p [facility] Karson Monge I71.2 Thoracic aortic Of [facility] Danielle Patten aneurysm, without rupture I25.10 Athscl heart disease of [place] coronary artery w/o ang pctrs I44.2 Atrioventricular block, complete Z95.2 Presence of prosthetic heart valve I87.2 Venous insufficiency (chronic) (peripheral) Office Visit 10/16/2017 9:40a [facility] Chanelle Yoder D50.8 Other iron Andrey Connolly M.D.,FACP deficiency [address] anemias I71.2 Thoracic aortic aneurysm, without rupture R60.1 Generalized edema Office Visit 02/13/2017 9:30a [facility] Chanelle Yoder Z00.01 Encounter for Andrey Connolly M.D.,FACP general adult [address] medical exam w abnormal findings I71.2 Thoracic aortic aneurysm, without rupture N40.1 Benign prostatic hyperplasia with lower urinary tract symp I25.10 Athscl heart disease of [place] coronary artery w/o ang pctrs Office Visit 12/08/2016 [facility] Chanelle Yoder Z01.810 Encounter for 3:40p Andrey Connolly M.D.,FACP preprocedural [address] cardiovascular examination 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, bilateral I71.2 Thoracic aortic aneurysm, without rupture N40.1 Benign prostatic hyperplasia with lower urinary tract symp Office Visit 11/08/2016 3:40p [facility] Karson Monge I71.2 Thoracic aortic Danielle Patten aneurysm, without rupture I34.0 Nonrheumatic mitral (valve) insufficiency I44.2 Atrioventricular block, complete I10 Essential (primary) hypertension I42.1 Obstructive hypertrophic cardiomyopathy I48.3 Typical atrial flutter R06.00 Dyspnea, unspecified Z95.0 Presence of cardiac pacemaker Office Visit 03/14/2016 1:30p [facility] Sima Dudley, I34.0 Nonrheumatic mitral PA (valve) insufficiency I10 Essential (primary) hypertension I71.2 Thoracic aortic aneurysm, without rupture Office Visit 02/12/2016 11:40a [facility] Internal [place] Yoder Z00.01 Encounter for Andrey Connolly M.D.,[facility] general adult [address] medical exam w abnormal findings I35.2 Nonrheumatic aortic (valve) stenosis with insufficiency I71.2 Thoracic aortic aneurysm, without rupture N40.1 Enlarged prostate with lower urinary tract symptoms G47.8 Other sleep disorders Z23 Encounter for immunization Office Visit 02/10/2016 [facility] Karson Monge I44.2 Atrioventricular 9:30a Cardiology Danielle Patten block, complete R06.00 Dyspnea, unspecified I34.0 Nonrheumatic mitral (valve) insufficiency I35.0 Nonrheumatic aortic (valve) stenosis Office Visit 12/22/2015 11:00a [facility] Nurse Visit cc I10 Essential (primary) hypertension Office Visit 11/16/2015 1:40p [facility] Karson Monge I71.2 Thoracic aortic Danielle Patten aneurysm, without rupture I10 Essential (primary) hypertension R06.00 Dyspnea, unspecified I34.0 Nonrheumatic mitral (valve) insufficiency Z95.0 Presence of cardiac pacemaker Office Visit 03/12/2015 3:10p [facility] Karson Monge I71.2 Thoracic aortic Danielle Patten aneurysm, without rupture I10 Essential (primary) hypertension I34.0 Nonrheumatic mitral (valve) insufficiency Office Visit 02/19/2015 10:30a [facility] Chanelle Yoder Z00.01 Encounter for Andrey Connolly M.D.,[facility] adult [address] medical exam w abnormal findings I71.2 Thoracic aortic aneurysm, without rupture N64.4 Mastodynia N40.1 Enlarged prostate with lower urinary tract symptoms I25.10 Athscl heart disease of [place] coronary artery w/o ang pctrs Z23 Encounter for immunization Office Visit 01/22/2015 8:30a [facility] Karson Monge 424.0 Mitral Valve Danielle Patten Disorder 424.1 Aortic Valve Disorder 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.11 Hypertrophic Obstructive Cardiomyopathy 794.31 Electrocardiogram (ECG) (EKG) Abnormal 401.9 Hypertension Unspec Office Visit 01/02/2015 3:40p [facility] Karson Monge 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.0 Mitral Valve Disorder 424.1 Aortic Valve Disorder 327.23 Obstructive Sleep Apnea Adult & Pediatric 785.2 Murmur Cardiac Undiagnosed Office Visit 02/18/2014 10:50a [facility] Chanelle Yoder V70.0 Examination Medicine Danielle Connolly,FACP General Medical Routine [facility] 600.00 Hypertrophy Prostate W/O Urinary Obstruction & Other Luts 607.84 Impotence Organic Origin 493.00 Asthma Extrinsic Unspecified Office Visit 11/27/2013 11:20a [facility] Karson Cox.81 Sinoatrial Node Danielle Patten Dysfunction 441.2 Aneurysm Thoracic W/O Rupture V45.01 Cardiac Pacemaker In Situ Postsurgical 719.46 Pain Joint Lower Leg 424.0 Mitral Valve Disorder Office Visit 11/07/2013 11:40a [facility] Chanelle Henson 719.46 Pain Joint Lower Medicine Danielle Rangel Leg Office Visit 02/01/2013 9:20a [facility] Chanelle Yoder 441.2 Aneurysm Medicine Danielle Connolly,FACP Thoracic W/O Rupture 607.84 Impotence Organic Origin 493.00 Asthma Extrinsic Unspecified 414.01 Coronary Atherosclerosis [place] 550.90 Hernia Inguinal W/O Obstruct Or Gangrene Unilateral Unspec Office Visit 11/22/2012 12:10p [facility] Chanelle Yoder 482.9 Pneumonia Due To Andrey Connolly M.D.,FACP Bacterial Infection Unspec Office Visit 10/17/2012 9:40a [facility] Karson Monge 427.81 Sinoatrial Node Cardiology Danielle Patten Dysfunction 426.0 Atrioventricular Block Complete 414.01 Coronary Atherosclerosis [place] 424.1 Aortic Valve Disorder Office Visit 03/01/2012 4:00p [facility] Chanelle Shanks-Paul D. 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 Atherosclerosis [place] 786.50 Pain Chest Unspec V45.01 Cardiac Pacemaker In Situ Postsurgical Office Visit 09/23/2011 [facility] 414.01 Coronary 11:30a Kevyn Patten M.D. Atherosclerosis [place] 424.1 Aortic Valve Disorder 786.50 Pain Chest Unspec Office Visit 09/22/2011 Tg [facility] 414.01 Coronary 10:00a Kevyn Patten M.D. Atherosclerosis [place] 786.50 Pain Chest Unspec 424.1 Aortic Valve Disorder Office Visit 01/13/2011 10:10a DO Not Use Bianca Yoder V70.0 Examination AT [facility] Danielle Connolly,[facility] General Medical Routine AT Health Care Facility 414.01 Coronary Atherosclerosis [place] V45.01 Cardiac Pacemaker In Situ Postsurgical 790.21 Impaired Fasting Glucose 607.84 Impotence Organic Origin 493.00 Asthma Extrinsic Unspecified 789.31 Swelling Mass Or Lump Abdominal/Pelvic RT Upper Quadrant Office 11/03/2010 Tg [facility] 272.0 Hypercholesterolemia Pure Visit 3:10p Kevyn Patten M.D. 414.01 Coronary Atherosclerosis [place] 424.0 Mitral Valve Disorder Office Visit 02/10/2010 Tg [facility] 414.01 Coronary 2:40p Kevyn Patten M.D. 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 281.1 Vitamin B12 Deficiency Anemia Other 788.69 Urinary Abnormaltiy Other Office 12/24/2009 Tg [facility] 272.0 Hypercholesterolemia Pure Visit 8:40a [facility] Danielle Patten 426.0 Atrioventricular Block Complete V45.01 Cardiac Pacemaker In Situ Postsurgical 414.01 Coronary Atherosclerosis [place] Office Visit 09/30/2009 DO Not Use Information Security Specialist Westley Yoder 717.1 Derangement Anterior 3:00p AT [place] M[place].,[facility] Office Visit 05/20/2009 Tg [place]ge 426.0 Atrioventricular 3:20p Cardiology Danielle Patten Block Complete V45.01 Cardiac Pacemaker In Situ Postsurgical 414.01 Coronary Atherosclerosis [place] Office Visit 02/18/2009 DO Not Use Information Security Specialist Westley Yoder 414.01 Coronary 9:00a AT Angela Connolly M.D.,[facility] Atherosclerosis [place] 790.21 Impaired Fasting Glucose 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 Block Complete 414.01 Coronary Atherosclerosis [place] 401.1 Hypertension Benign 272.0 Hypercholesterolemia Pure Office Visit 10/12/2007 Tg Monge 426.0 Atrioventricular 2:40p Kevyn Patten M.D. Block Complete 414.01 Coronary Atherosclerosis [place] 401.1 Hypertension Benign 272.0 Hypercholesterolemia Pure Office Visit 10/03/2007 Tg [facility] 426.0 Atrioventricular 8:00a Kevyn Patten M.D. Block Complete 414.01 Coronary Atherosclerosis [place] 401.1 Hypertension Benign Office Visit 10/03/2007 Tg Monge 426.0 Atrioventricular 9:30a Kevyn Patten M.D. Block Complete 414.01 Coronary Atherosclerosis [place] 401.1 Hypertension Benign Office Visit 05/24/2007 Tg Monge 426.0 Atrioventricular 10:20a Kevyn Patten M.D. Block Complete 414.01 Coronary Atherosclerosis [place] 401.1 Hypertension Benign 272.0 Hypercholesterolemia Pure Office Visit 09/29/2006 Tg Monge 414.01 Coronary 11:20a Cardiology Danielle Patten Atherosclerosis [place] 401.1 Hypertension Benign 272.0 Hypercholesterolemia Pure Office Visit 05/11/2006 Tg Monge 426.12 Atrioventricular 2:20p Kevyn Patten M.D. 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 Atherosclerosis [place] 426.12 Atrioventricular Block Mobitz Type II 401.0 Hypertension Malignant Office Visit 12/09/2005 Tg Monge 786.09 Dyspnea & 11:00a Kevyn Patten M.D. 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 Office Visit 05/12/2005 2:00p [facility] Karson Monge 785.2 Murmur Cardiac Danielle Patten Undiagnosed 272.0 Hypercholesterolemia Pure 401.1 Hypertension Benign Office Visit 05/13/2004 [place] Karson Monge 440.0 Atherosclerosis Aorta 3:00p Cardiology Danielle Patten 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.0 Mitral Valve Disorder Office Visit 11/06/2003 1:40p [facility] Karson Monge 441.2 Aneurysm Danielle Patten Thoracic W/O Rupture 401.1 Hypertension Benign Office Visit 05/07/2003 9:20a [facility] Karson Monge 441.2 Aneurysm Danielle Patten Thoracic W/O Rupture 436 Cerebrovascular Disease Acute Ill-Defined 780.2 Syncope & Collapse 401.9 Hypertension Unspec 785.2 Murmur Cardiac Undiagnosed Office Visit 05/07/2003 9:00a [facility] Karson Monge 441.2 Aneurysm Danielle Patten Thoracic W/O Rupture 436 Cerebrovascular Disease Acute Ill-Defined 780.2 Syncope & Collapse 401.9 Hypertension Unspec 785.2 Murmur Cardiac Undiagnosed Plan of Treatment Future Appointment(s):02/14/2019 3:40 pm - Karson Patten M.D. at [facility]11/12/2018 9:00 am - Valeria Owusu [place] at [facility]2018 10:20 am - Keo Rangel M.D. at [facility] Internal Kzroxjud20/21/2019 - Karson Patten M.D.I44.2 Atrioventricular block, xchzccwmE53.0 Presence of cardiac wejskrqvbP51.2 Chronic atrial fibrillationFollow up:ov [facility] [employer] 3-4 weeks ov JFM 9.19I11.9 Hypertensive heart epcucitQ74.0 Aortic valve qwlbyakcK43.00 HomzgcwjifmvakmzgvhxN95.0 Mitral valve disorder
[2018-11-23] MEDS ORDERED: Cephalexin CAP* 500 MG PO ONE (22:38)
--- NOTE | 2018-11-23 22:42 | ED ---
Adult Trauma - HPI Summary HPI Summary: Patient complains of skin tears to right elbow and left forearm after falling between dock and boat. Denies any other pain injury or symptoms. Patient on pradaxa. - History of Current Complaint Chief Complaint: EDLacSutureRecheck Stated Complaint: FELL OFF BOAT LIFT INTO SAUER PER PT Time Seen by Provider: 11/23/18 20:42 Hx Obtained From: Patient Mechanism of Injury: Blunt Trauma, Fall Ambulatory at the Scene: Yes Loss of Consciousness: no loss of consciousness Onset of Pain: Hours Onset Severity: Mild Current Severity: Mild Pain Intensity: 3 Pain Scale Used: 0-10 Numeric Character: Aching Aggravating Factor(s): Nothing Alleviating Factor(s): Nothing Associated Signs & Symptoms: Positive: Negative - Allergy/Home Medications Allergies/Adverse Reactions: Allergies Allergy/AdvReac Type Severity Reaction Status Date / Time monosodium glutamate AdvReac Severe Headache Verified 11/23/18 17:58 sulfite AdvReac Severe Headache Verified 11/23/18 17:58 codeine AdvReac Intermediate Nausea Verified 11/23/18 17:58 niacin AdvReac Intermediate Flushing Verified 11/23/18 17:58 KAZAKH FOOD Allergy Headache Uncoded 11/23/18 17:58 PMH/Surg Hx/FS Hx/Imm Hx Endocrine/Hematology History: Reports: Hx Anticoagulant Therapy Cardiovascular History: Reports: Hx Coronary Artery Disease, Hx Hypercholesterolemia, Hx Hypertension, Hx Pacemaker/ICD, 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, Other Cardiovascular Problems/ Disorders - AORTIC ANEURYSM @ 5.1 x15 YRS Respiratory History: Reports: Hx Asthma GI History: Reports: Hx Ulcer - 1990-BLEEDING DUODENOL ULCER Sensory History: Reports: Hx Cataracts - BILATERAL, Hx Contacts or Glasses - GLASSES Denies: Hx Hearing Aid Opthamlomology History: Reports: Hx Cataracts - BILATERAL, Hx Contacts or Glasses - GLASSES EENT History: Denies: Hx Deafness Neurological History: Denies: Hx Dementia - Surgical History Surgery Procedure, Year, and Place: duodenal ulcer 1991; appendectomy 1943; hernia 2005; biopsies in s [place] Sarc[facility] - squamous cell back, arms,legs, pacemaker Hx Anesthesia Reactions: No - Immunization History Immunizations Up to Date: Yes Infectious Disease History: No Infectious Disease History: Denies: Traveled Outside the [place] in Last 30 Days - Family History Known Family History: Positive: Non-Contributory - Social History Alcohol Use: None Alcohol Amount: 1 beer/day Substance Use Type: Reports: None Smoking Status (MU): Never Smoked Tobacco Amount Used/How Often: 2 PPD X 6-7 YRS Have You Smoked in the Last Year: No Review of Systems Constitutional: Negative Eyes: Negative ENT: Negative Cardiovascular: Negative Respiratory: Negative Gastrointestinal: Negative Genitourinary: Negative Musculoskeletal: Negative Skin: Other Neurological: Negative Psychological: Normal All Other Systems Reviewed And Are Negative: Yes Physical Exam - Summary Physical Exam Summary: Skin tears to right elbow, left upper extremity and left forearm. No other trauma noted. Patient using all 4 extremities freely. Triage Information Reviewed: Yes Vital Signs On Initial Exam: Initial Vitals Temp Pulse Resp BP Pulse Ox 98.8 F 63 18 154/92 96 11/23/18 17:55 11/23/18 17:55 11/23/18 17:55 11/23/18 17:55 11/23/18 17:55 Vital Signs Reviewed: Yes Appearance: Positive: Well-Appearing Skin: Positive: Warm Head/Face: Positive: Normal Head/Face Inspection Eyes: Positive: Normal ENT: Positive: Normal ENT inspection Dental: Negative: Dental Fracture @, Bleeding Neck: Positive: Supple Respiratory/Lung Sounds: Positive: Clear to Auscultation Cardiovascular: Positive: Normal Abdomen Description: Positive: Nontender Musculoskeletal: Positive: Normal Neurological: Positive: Normal Psychiatric: Positive: Normal AVPU Assessment: Alert - [place] Coma Scale Best Eye Response: 4 - Spontaneous Best Motor Response: 6 - Obeys Commands Best Verbal Response: 5 - Oriented Coma Scale Total: 15 Diagnostics - Vital Signs Vital Signs Temp Pulse Resp BP Pulse Ox 11/23/18 20:36 98.3 F 60 18 173/98 99 11/23/18 17:55 98.8 F 63 18 154/92 96 - Laboratory Lab Statement: Any lab studies that have been ordered have been reviewed, and results considered in the medical decision making process. Adult Trauma Course/Dx - Course Course Of Treatment: Patient complains of skin tears to right elbow and left forearm after falling between dock and boat. Denies any other pain injury or symptoms. Patient on pradaxa. Vital signs within normal limits. Wounds cleaned and wrapped. Skin replaced overwhelmed and Steri-Stripped and placed. Xeroform gauze placed over wounds and wrapped with Coban pain. Advised patient to follow up with wound care. Rx for Keflex. - Diagnoses Provider Diagnoses: Fall, Skin tear of left upper extremity, Skin tear of right forearm without complication Discharge - Sign-Out/Discharge Documenting (check all that apply): Patient Departure Patient Received Moderate/Deep Sedation with Procedure: No - Discharge Plan Condition: Stable Disposition: HOME Prescriptions: Cephalexin CAP* [Keflex CAP*] 500 mg PO TID 7 Days #21 cap Patient Education Materials: Skin Tear (ED) Referrals: Keo Rangel MD [Primary Care Provider] - Additional Instructions: Call [facility] wound care at [phone] for further evaluation of wounds on both upper extremities. Take antibiotics as directed. Keep wound wraps clean and dry and intact until you follow up with wound care. Return to the ED for any new or worsening symptoms. - Billing Disposition and Condition Condition: STABLE Disposition: Home
[2018-11-23 23:00] VITALS: BP 146/95
== END 2018-11-23 22:56 | disposition home or self-care (01) ==
LOC: ED 17:53
DX: S51.011A Laceration without foreign body of right elbow, initial encounter (principal); S41.112A Laceration without foreign body of left upper arm, initial encounter; V94.0XXA Hitting object or bottom of body of water due to fall from watercraft, initial encounter; I10 Essential (primary) hypertension; I25.10 Atherosclerotic heart disease of native coronary artery without angina pectoris; Z87.891 Personal history of nicotine dependence
CPT/HCPCS: 99282; A9270-GY

== ENCOUNTER 2020-06-23 08:47 | Observation (INO) ==
[2020-06-23] MEDS ORDERED: HYDROcodone/ACETAMIN 5/325 mg TAB PO ONE (09:12)
[2020-06-23] MEDS ORDERED: Ondansetron ODT 4 mg TAB 4 MG TAB SL ONE (09:48)
[2020-06-23 10:02] LABS: ABS Basophils 0.1 10^3/ul (0-0.2); ABS Eosinophils 0.1 10^3/ul (0-0.6); ABS Lymphocytes 0.9 10^3/ul (1.0-4.8); ABS Monocytes 0.5 10^3/ul (0-0.8); Eosinophil % 1.3 %; Hematocrit 40 % (42-52); Hemoglobin 13.9 g/dL (14.0-18.0); Lymphocyte % 11.3 %; Mean Corpuscular HGB Conc 35 g/dL (31-36); Mean Corpuscular Hemoglobin 31 pg (27-31); Mean Corpuscular Volume 91 fL (80-94); Mean Platelet Volume 8.6 fL (7.4-10.4); Platelet Count 130 10^3/uL (150-450); Red Blood Count 4.43 10^6 /uL (4.18-5.48); Red Cell Distribution Width 20 % (10-15); White Blood Count 7.5 10^3/uL (3.5-10.8)
[2020-06-23 10:15] LABS: INR 1.12 (0.82-1.09)
[2020-06-23 10:21] LABS: Albumin 3.9 g/dL (3.2-5.2); Albumin/Globulin Ratio 1.5 (1-3); BUN/Creatinine Ratio 16.9 (8-20); Calcium 9.1 mg/dL (8.6-10.3); EGFR African American 99.3 (>60); Globulin 2.6 g/dL (2-4); Potassium 4.2 mmol/L (3.5-5.0); Total Bilirubin 0.9 mg/dL (0.2-1.0); Total Protein 6.5 g/dL (6.4-8.9)
[2020-06-23] MEDS ORDERED: Albuterol HFA INHALER 8 gm MDI INH PRN (10:47)
[2020-06-23] MEDS ORDERED: HYDROcodone/ACETAMIN 5/325 mg TAB PO PRN (10:59)
[2020-06-23] MEDS: HYDROcodone/ACETAMIN 5/325 mg TAB PO PRN ×2 (16:42→23:31)
[2020-06-23] MEDS ORDERED: Mirabegron 50 mg ER TAB (NF) PO SCH (18:00)
[2020-06-23] MEDS ORDERED: CMCS: Alfuzosin ER 10 mg TAB.ER (NF) 10 MG TAB.ER PO SCH (18:00)
[2020-06-23] MEDS: Mometasone/Formoter 100/5 MDI INH SCH (20:34)
[2020-06-23] MEDS: ICOSAPENT ETHYL 1 GM CAPSULE (NF) PO SCH (22:40)
[2020-06-24] MEDS: Mometasone/Formoter 100/5 MDI INH SCH (07:13)
[2020-06-24] MEDS ORDERED: Psyllium PAK PO SCH (09:00)
[2020-06-24] MEDS: HYDROcodone/ACETAMIN 5/325 mg TAB PO PRN (09:09)
[2020-06-24] MEDS: ICOSAPENT ETHYL 1 GM CAPSULE (NF) PO SCH (09:11)
[2020-06-24 16:52] VITALS: BP 149/88
== END 2020-06-24 13:30 | disposition home or self-care (01) ==
LOC: ED 08:47 → MEDTELE 08:47
PROVIDERS: ADMIT Internal Medicine; ATTEND Internal Medicine